=== PATIENT | female | born 1950 | race Caucasian/White ===

== ENCOUNTER 2019-10-23 13:24 | Emergency (ER) | payer MEDICARE, OTHER, SELFPAY ==
[2019-10-23 13:33] VITALS: BP 113/70; PULSE 72; RESP 18; TEMP 36.5; O2SAT 98; BMI 28.5
--- NOTE | 2019-10-23 13:46 | XRR_ITS ---
PROCEDURE INFORMATION: Exam: XR Right Shoulder Exam date and time: 10/23/2019 2:14 PM Age: 68 years old Clinical indication: Pain and injury or trauma; Fall; Initial encounter; Blunt trauma (contusions or hematomas; Shoulder; Right; Injury date: 10/22/19 TECHNIQUE: Imaging protocol: XR Right shoulder. Views: 2 or more views. COMPARISON: No relevant prior studies available. FINDINGS: Bones/joints: Bones appear demineralized. Suspect a mildly displaced humeral head/neck fracture. CT could further evaluate as clinically indicated. Soft tissues: Normal. XR/XR shoulder RT min 2V* [id number] IMPRESSION: Bones appear demineralized. Suspect a mildly displaced humeral head/neck fracture. CT could further evaluate as clinically indicated.
--- NOTE | 2019-10-23 13:46 | XRR_ITS ---
PROCEDURE INFORMATION: Exam: XR Right Humerus Exam date and time: 10/23/2019 2:14 PM Age: 68 years old Clinical indication: Pain and injury or trauma; Fall; Initial encounter; Blunt trauma (contusions or hematomas; Shoulder and arm, upper; Right; Upper arm and shoulder; Injury date: 10/22/19 TECHNIQUE: Imaging protocol: XR Right humerus Views: 2 or more views. COMPARISON: OT Forearm RIGHT [id number] 09/02/2018 7:49 AM FINDINGS: Bones/joints: Bones appear somewhat demineralized. Suspect a mildly displaced humeral neck fracture. Soft tissues: Normal. XR/[place] [id number] IMPRESSION: Bones appear somewhat demineralized. Suspect a mildly displaced humeral neck fracture.
--- NOTE | 2019-10-23 13:46 | CT_ITS ---
WS: [id number] CT HEAD TECHNIQUE: Noncontrast CT of the head obtained from the skullbase to the vertex. CLINICAL INFORMATION: fall w LOC COMPARISON: MRI 6 12,013 DLP: 840.[address] scans at [facility] use at least one of these dose optimization techniques: automat ed exposure control; mA and/or kV adjustment per patient size (includes targeted exams where dose is matched to clinical indication); or iterative reconstruction. FINDINGS: No evidence of intracranial hemorrhage or mass effect. Ventricular system and basal cisterns are kaminski nt. Moderate small vessel changes with moderate parenchymal volume loss. Chronic lacunar infarcts in the left de oliveira radiata and internal capsule. Partially calcified right posterior fossa meningioma me asuring 7 x 11 mm appears stable since the prior MRI in 2012. No underlying edema. No hydrocephalus.. Paranasal sinuses and mastoid air cells are well aerated. .Normal visualized soft tissues. Attempted notification Eliezer Kramer DO at 10/23/2019 3:[address]/CT head wo con* [id number] IMPRESSION: 1. No evidence of intracranial hemorrhage or mass effect. 2. Moderate small vessel changes with moderate parenchymal volume loss. 3. Multiple chronic lacunar infarcts in the left de oliveira radiata and left basal ganglia. 4. Right posterior fossa meningioma measuring 7 x 11 mm appears unchanged sinc e 2012. No edema. No hydrocephalus.
--- NOTE | 2019-10-23 13:47 | W.ED.FALL ---
HPI - Fall General: Chief Complaint: Fall Stated Complaint: fell Time Seen by Provider: 10/23/19 13:34 History of Present Illness: HPI Narrative: 68-year-old female who fell last night. She thought her had fallen she got up out of bed and began walking towards the kitchen living room she got lightheaded and dizzy and passed out she fell and hit her head is able to get herself back up again length of time down is unknown. She is complaining of left shoulder pain and head pain she is not had any nausea vomiting or diarrhea she denies any fever sweats or chills no GI or symptoms no chest pain or abdominal pain her only identifiable pain is at in the left shoulder. MD complaint: fall Onset (ago): hour(s) Fall from: standing Fall witnessed: no Place fall occurred: home Loss of consciousness: Yes Prolonged down time: no Symptoms prior to fall: dizziness Context: history of frequent falls Location of injury: head Location of injury - extremities: Right: shoulder and arm Severity: moderate Associated symptoms-after fall: Denies abdominal pain or chest pain Review of Systems Const: Denies: fever(s), chills, body aches, change in appetite, fatigue or malaise ENMT: Denies: throat pain, ear or mastoid pain, nasal discharge or nasal congestion Card: Denies: chest pain, edema, dyspnea on exertion or orthopnea Resp: Denies: dyspnea, productive cough or non-productive cough GI: Denies: abdominal pain, nausea, vomiting, hematemesis, coffee ground emesis, diarrhea, constipation, bloating, hematochezia or melena : Denies: flank pain, difficulty voiding, dysuria, urinary frequency or urinary urgency Skin/Breast: Denies: rash or pruritus PFSH ED PFSH: Medical History Diabetes mellitus type 2, uncontrolled Essential (primary) hypertension Multiple sclerosis Surgical History History of back surgery History of colonoscopy History of esophagogastroduodenoscopy (EGD) Family History Other Cancer Epilepsy Hypertension Social History Smoking and tobacco status: former smoker Alcohol intake: current Alcohol intake frequency: few times a month History of recent travel: No Physical Exam Const: COMMON NORMALS: no acute distress GENERAL APPEARANCE: cooperative and comfortable HENMT: COMMON NORMALS: normocephalic, atraumatic, hearing grossly normal bilaterally, external ears normal, EAC's normal, TM's normal bilaterally, Normal nasal mucous membranes and turbinates present, moist oral mucous membranes and oropharynx normal HEAD & SCALP: normocephalic and atraumatic NOSE: Normal nasal mucous membranes and turbinates present EXTERNAL EAR: Yes external ears normal EXTERNAL AUDITORY CANAL: EAC's normal TYMPANIC MEMBRANE: TM's normal bilaterally Eye: COMMON NORMALS: Equal, round and reactive pupils present, EOMs intact bilaterally, conjunctivae normal and no scleral icterus CONJUNCTIVA: Yes conjunctivae normal PUPIL: Yes Equal, round and reactive pupils present Neck/C-Spine: COMMON NORMALS: full ROM, no lymphadenopathy, supple and no JVD Lymph: LYMPHATIC: no lymphadenopathy noted and no lymphedema noted Resp: COMMON NORMALS: normal respiratory effort, No retractions, No use of accessory muscles and clear to auscultation bilaterally AUSCULTATION: clear to auscultation bilaterally Cardio: COMMON NORMALS: no JVD, regular rate, regular rhythm and No murmurs present (Cardio) RATE: regular rate RHYTHM: regular rhythm GI: COMMON NORMALS: Soft to palpation and No hepatosplenomegaly present AUSCULTATION: Yes normoactive bowel sounds PALPATION: Yes Soft to palpation, No Tenderness to palpation present (GI), No Guarding due to palpation present (GI) and Yes No hepatosplenomegaly present Extremity: COMMON NORMALS: normal to inspection, capillary refill normal, no clubbing, cyanosis or edema, no calf tenderness and no pedal edema NARRATIVE EXTREMITY EXAM: Pain and swelling of the proximal humerus of the right arm no deformity of the shoulder itself no sulcus sign Skin: COMMON NORMALS: no rashes or lesions noted GENERAL SKIN EXAM: no rashes or lesions noted Course Vital Signs: Vital signs: Vital Signs Temperature 97.7 F 10/23/19 13:33 Pulse Rate 66 10/23/19 16:02 Respiratory Rate 18 10/23/19 16:02 Blood Pressure 147/89 10/23/19 16:02 Pulse Oximetry 98 10/23/19 16:02 MDM - Fall MDM Narrative: Medical decision making narrative: Discussed with orthopedics. Will sling gave pain medications as patient leave sling in place till she sees Ortho. They will provide definitive care Case management to arrange for appointment. Lab Data: Attestation: I reviewed the patient's lab results. Labs: Lab Results 10/23/19 10/23/19 10/23/19 Range/Units 14:00 14:00 14:01 WBC 10.1 H (4.0-10.0) 10^3/ uL RBC 3.53 L (4.1-5.3) 10^6/u L Hgb 10.4 L (11.5-15.3) g/dL Hct 33.7 L (37.0-47.0) % MCV 95.5 (81-99) fL MCH 29.5 (28.0-34.0) pg MCHC 30.9 (30.0-36.0) g/dL RDW 13.1 (12.1-15.1) % Plt Count 275 (130-400) 10^3/c mm MPV 11.0 H (7.4-10.4) fL Neut % (Auto) 60.7 % Lymph % (Auto) 27.7 % [place] % (Auto) 8.6 % Eos % (Auto) 2.1 % Baso % (Auto) 0.7 % Neut # (Auto) 6.12 (1.8-7.7) 10^3/u L Lymph # (Auto) 2.8 (0.8-4.8) 10^3/u L [place] # (Auto) 0.9 (0.2-0.9) 10^3/u L Eos # (Auto) 0.2 (0.0-0.8) 10^3/u L Baso # (Auto) 0.1 (0.0-0.1) 10^3/u L Nucleated RBC % (a uto) 0 % Nucleated RBCs # 0.0 /100WBC Sodium 136 (136-145) mmol/L Potassium 4.5 (3.5-5.1) mmol/L Chloride 103 (98-107) mmol/L Carbon Dioxide 24 (22-29) mmol/L Anion Gap 13.5 (5-19) BUN 25 H (8-23) mg/dL Creatinine 2.5 H (0.5-0.9) mg/dL GFR Calculation 19.0 L (90-130) mL/min Glucose 116 H (65-115) mg/dL POC Glucose 106 (70-110) mg/dL Calculated Osmolal ity 280 L (285-295) mOsm/k g Calcium 8.7 (8.5-10.5) mg/dL Total Bilirubin 0.2 (0.15-1.2) mg/dL AST 13 (0-32) U/L ALT 9 (0-33) U/L Alkaline Phosphata se 74 (35-105) IU/L Total Protein 7.0 (6.6-8.7) g/dL Albumin 3.7 (3.5-5.2) g/dL Globulin 3.3 (1.3-4.6) g/dL Discharge Plan Discharge Patient Disposition: Home Clinical Impression: Fracture of proximal end of humerus Condition: Stable Prescriptions: New hydrocodone-acetaminophen 5-325 mg tablet 1 tab PO Q6H PRN (Reason: pain) Qty: 20 RF: 0 No Action celecoxib [Celebrex] 200 mg capsule 200 mg PO BID RF: 0 atenolol 50 mg tablet 50 mg PO DAILY RF: 0 glimepiride 2 mg tablet 4 mg PO DAILY RF: 0 metformin 500 mg tablet 500 mg PO DAILY RF: 0 tizanidine 4 mg tablet 4 mg PO Q6H PRN (Reason: muscle spasms) RF: 0 amlodipine 5 mg tablet 5 mg PO DAILY Qty: 90 RF: 3 aripiprazole 5 mg tablet 5 mg PO DAILY Qty: 90 RF: 3 venlafaxine [Effexor XR] 150 mg capsule,extended release 24hr 150 mg PO DAILY Qty: 90 RF: 3 Lantus Solostar U-100 Insulin 100 unit/mL (3 mL) insulin pen 25 unit SUBCUT .at bedtime Qty: 15 RF: 3 losartan-hydrochlorothiazide 100-25 mg tablet 1 tab PO DAILY 90 Days Qty: 90 RF: 0 levothyroxine 75 mcg tablet 75 mcg PO DAILY Qty: 90 RF: 3 Aspirin Low Dose 81 mg Tablet,Delayed Release (Dr/Ec) 81 mg PO DAILY RF: 0 gabapentin 300 mg capsule 300 mg PO DAILY RF: 0 Vitamin B-12 2,000 mcg Tablet Extended Release 2,000 mcg PO DAILY RF: 0 Vitamin D3 25 mcg (1,000 unit) Tablet 25 mcg PO DAILY RF: 0 potassium chloride 20 mEq Tablet Extended Release 20 meq PO DAILY RF: 0 Discharge Orders: Discharge Order (Routine); Ordered 10/23/19 Ordered By: Eliezer Kramer Referrals: Malik Nicolas MD [Primary Care Provider] - Discharge Diet: Usual diet Discharge Activity: Increase activity as tolerated Activity Restrictions/Additional Instructions: Case management will call with referral to orthopedics for the humerus fracture Discharge Date/Time: 10/23/19 16:02 Coding Level of Care Code ED Commercial Energy Auditor for Chg Fwd Exam Comprehensive
[2019-10-23 14:02] VITALS: BP 121/73; PULSE 65; RESP 14; O2SAT 97
[2019-10-23 14:06] LABS: Basophils # 0.1 10^3/uL (0.0-0.1); Basophils % 0.7 %; Eosinophils # 0.2 10^3/uL (0.0-0.8); Eosinophils % 2.1 %; Hematocrit 33.7 % (37.0-47.0); Hemoglobin 10.4 g/dL (11.5-15.3); Lymphocytes # 2.8 10^3/uL (0.8-4.8); Lymphocytes % 27.7 %; Mean Corpuscular HGB Conc 30.9 g/dL (30.0-36.0); Mean Corpuscular Hemoglobin 29.5 pg (28.0-34.0); Mean Corpuscular Volume 95.5 fL (81-99); Monocytes # 0.9 10^3/uL (0.2-0.9); Monocytes % 8.6 %; Neutrophils # 6.12 10^3/uL (1.8-7.7); Neutrophils % 60.7 %; Nucleated Red Blood Cells % 0 %; Platelet Count 275 10^3/cmm (130-400); Red Blood Count 3.53 10^6/uL (4.1-5.3); Red Cell Distribution Width 13.1 % (12.1-15.1); White Blood Count 10.1 10^3/uL (4.0-10.0)
[2019-10-23 14:07] LABS: Glucose Point of Care 106 mg/dL (70-110)
[2019-10-23 14:31] LABS: Alanine Aminotransferase 9 U/L (0-33); Albumin Level 3.7 g/dL (3.5-5.2); Alkaline Phosphatase 74 IU/L (35-105); Anion Gap 13.5 (5-19); Aspartate Amino Transferase 13 U/L (0-32); Blood Urea Nitrogen 25 mg/dL (8-23); Calcium 8.7 mg/dL (8.5-10.5); Carbon Dioxide 24 mmol/L (22-29); Chloride 103 mmol/L (98-107); Globulin 3.3 g/dL (1.3-4.6); Glucose 116 mg/dL (65-115); Osmolality Calculated 280 mOsm/kg (285-295); Potassium 4.5 mmol/L (3.5-5.1); Sodium 136 mmol/L (136-145); Total Bilirubin 0.2 mg/dL (0.15-1.2)
--- NOTE | 2019-10-23 15:22 | DCPLANNER ---
Tate blackmon was asked to schedule a follow up appointment for patient with ortho. manager business banking called the ortho clinic, spoke with Sarah, gave clinic patients information. manager business banking was told that patients information would be printed and reviewed. Clinic will call patient with appointment information.
[2019-10-23 15:29] VITALS: BP 147/89; PULSE 76; RESP 14; O2SAT 94
[2019-10-23 16:02] VITALS: BP 147/89; PULSE 66; RESP 18; O2SAT 98
--- NOTE | 2019-10-25 11:29 | DCPLANNER ---
Patient has a follow up appointment scheduled for Wednesday, October 30, 2019 at 2:[address] Green. Clinic will call patient with appointment information.
--- NOTE | 2019-11-28 13:11 | DCPLANNER ---
Patient had a follow up appointment scheduled for 10.30.[address] Green at [facility] - patient did attend the appointment.
== END 2019-10-23 16:02 | disposition home or self-care (01) ==
PROVIDERS: Emergency Provider Family Medicine; PCP Internal Medicine
DX: S42.202A Unspecified fracture of upper end of left humerus, initial encounter for closed fracture (principal); Z79.82 Long term (current) use of aspirin; Z79.4 Long term (current) use of insulin; W18.39XA Other fall on same level, initial encounter; E11.9 Type 2 diabetes mellitus without complications; I10 Essential (primary) hypertension; G35 Multiple sclerosis; Z87.891 Personal history of nicotine dependence
CPT/HCPCS: 12345; 29240; 36415; 36416; 70450; 73030; 73060; 80053; 82962; 85025; 99282; 99283

== ENCOUNTER 2019-10-30 06:00 | Outpatient (CLI) | payer MEDICARE, OTHER, SELFPAY | END 2019-10-30 23:59 | disposition home or self-care (01) | LOC: SPT 01-19 10:56 | PROVIDERS: PCP Internal Medicine; Referring Provider Specialist; Visit Provider Specialist | DX: S42.201D Unspecified fracture of upper end of right humerus, subsequent encounter for fracture with routine healing (principal); X58.XXXD Exposure to other specified factors, subsequent encounter | CPT/HCPCS: L3670 ==

== ENCOUNTER → 2019-10-30 15:24 | Outpatient (BNVA) | payer MEDICARE, OTHER, SELFPAY | PROVIDERS: PCP Internal Medicine; Referring Provider Family Medicine; Visit Provider Specialist | DX: S42.209A Unspecified fracture of upper end of unspecified humerus, initial encounter for closed fracture (principal); X58.XXXA Exposure to other specified factors, initial encounter | CPT/HCPCS: 73030 ==

== ENCOUNTER → 2019-11-08 12:00 | Outpatient (BNVA) | payer MEDICARE, OTHER, SELFPAY | PROVIDERS: PCP Internal Medicine; Visit Provider Specialist | DX: S42.291A Other displaced fracture of upper end of right humerus, initial encounter for closed fracture (principal); X58.XXXA Exposure to other specified factors, initial encounter | CPT/HCPCS: 73030 ==

== ENCOUNTER → 2019-12-04 10:27 | Outpatient (BNVA) | payer MEDICARE, OTHER, SELFPAY | PROVIDERS: PCP Internal Medicine; Visit Provider Specialist | DX: S42.291A Other displaced fracture of upper end of right humerus, initial encounter for closed fracture (principal); X58.XXXA Exposure to other specified factors, initial encounter | CPT/HCPCS: 73030 ==

== ENCOUNTER → 2019-12-25 13:23 | Outpatient (BNVA) | payer MEDICARE, OTHER, SELFPAY | PROVIDERS: Family Provider Internal Medicine; PCP Internal Medicine; Visit Provider Specialist | DX: S42.291A Other displaced fracture of upper end of right humerus, initial encounter for closed fracture (principal); X58.XXXA Exposure to other specified factors, initial encounter | CPT/HCPCS: 73030 ==

== ENCOUNTER 2019-12-28 12:23 | Outpatient (RCR) | payer MEDICARE, OTHER, SELFPAY | END 2020-01-13 23:59 | disposition home or self-care (01) | LOC: SPT 12:23 | PROVIDERS: PCP Internal Medicine; Referring Provider Internal Medicine; Visit Provider Specialist | DX: S42.209D Unspecified fracture of upper end of unspecified humerus, subsequent encounter for fracture with routine healing (principal); X58.XXXD Exposure to other specified factors, subsequent encounter | CPT/HCPCS: 97161 ==

== ENCOUNTER 2020-01-09 07:50 | Outpatient (CLI) | payer MEDICARE, OTHER, SELFPAY | END 2020-01-09 07:51 | disposition home or self-care (01) | LOC: WOUND 07:51 | PROVIDERS: PCP Internal Medicine; Visit Provider Thoracic Surgery (Cardiothoracic Vascular Surgery) | DX: E11.621 Type 2 diabetes mellitus with foot ulcer (principal); L97.412 Non-pressure chronic ulcer of right heel and midfoot with fat layer exposed | CPT/HCPCS: 11042; G0463; L4387 ==

== ENCOUNTER 2020-01-11 12:54 | Outpatient (CLI) | payer MEDICARE, OTHER, SELFPAY ==
--- NOTE | 2020-01-11 13:07 | XRR_ITS ---
PROCEDURE INFORMATION: Exam: XR Right Foot Complete Exam date and time: 01/11/2020 1:32 PM Age: 69 years old Clinical indication: Condition or disease; Other: Pain, redness nonhealing ulcer TECHNIQUE: Imaging protocol: XR Right foot. Views: 3 or more views. COMPARISON: No relevant prior studies available. FINDINGS: Bones/joints: Negative for acute bony abnormality. There is osteoarthritis with narrowing of the interphalangeal articulation of multiple digits. A bone spur is present on the inferior calcaneus. Soft tissues: Normal. XR/XR foot RT min 3V* [id number] IMPRESSION: 1. No acute bone abnormality. 2. Moderate osteoarthritis 3. Otherwise negative examination
== END 2020-01-11 12:55 | disposition home or self-care (01) ==
LOC: RAD 13:03
PROVIDERS: PCP Internal Medicine; Visit Provider Thoracic Surgery (Cardiothoracic Vascular Surgery)
DX: M79.671 Pain in right foot (principal); L53.9 Erythematous condition, unspecified; L97.519 Non-pressure chronic ulcer of other part of right foot with unspecified severity; M19.071 Primary osteoarthritis, right ankle and foot
CPT/HCPCS: 73630

== ENCOUNTER 2020-01-16 09:05 | Outpatient (CLI) | payer MEDICARE, OTHER, SELFPAY | END 2020-01-16 09:06 | disposition home or self-care (01) | LOC: WOUND 09:05 | PROVIDERS: PCP Internal Medicine; Visit Provider Thoracic Surgery (Cardiothoracic Vascular Surgery) | DX: E11.621 Type 2 diabetes mellitus with foot ulcer (principal); L97.412 Non-pressure chronic ulcer of right heel and midfoot with fat layer exposed | CPT/HCPCS: 11042 ==

== ENCOUNTER 2020-01-23 09:06 | Outpatient (CLI) | payer MEDICARE, OTHER, SELFPAY | END 2020-01-23 09:07 | disposition home or self-care (01) | LOC: WOUND 09:07 | PROVIDERS: PCP Internal Medicine; Visit Provider Thoracic Surgery (Cardiothoracic Vascular Surgery) | DX: E11.621 Type 2 diabetes mellitus with foot ulcer (principal); L97.412 Non-pressure chronic ulcer of right heel and midfoot with fat layer exposed | CPT/HCPCS: 11042 ==

== ENCOUNTER → 2020-01-31 11:37 | Outpatient (BNVA) | payer MEDICARE, OTHER, SELFPAY | PROVIDERS: PCP Internal Medicine; Visit Provider Specialist | DX: S42.291A Other displaced fracture of upper end of right humerus, initial encounter for closed fracture (principal) | CPT/HCPCS: 73030 ==

== ENCOUNTER 2020-02-06 08:45 | Outpatient (CLI) | payer MEDICARE, OTHER, SELFPAY | END 2020-02-06 08:46 | disposition home or self-care (01) | LOC: WOUND 08:46 | PROVIDERS: PCP Internal Medicine; Visit Provider Nurse Practitioner Family | DX: E11.621 Type 2 diabetes mellitus with foot ulcer (principal); L97.412 Non-pressure chronic ulcer of right heel and midfoot with fat layer exposed | CPT/HCPCS: 11042 ==

== ENCOUNTER 2020-02-12 13:05 | Outpatient (CLI) | payer MEDICARE, OTHER, SELFPAY ==
--- NOTE | 2020-02-12 13:45 | MR_ITS ---
WS: [id number] MRI RIGHT SHOULDER NONCONTRAST TECHNIQUE: Sagittal T2, coronal T1, T2 and proton density imaging. Axial gradient PDE imaging. CLINICAL INFORMATION: S42.291A - Other displaced fracture of upper end of right humerus, initial enco unter for closed fracture COMPARISON: Radiograph January 31, 2020 FINDINGS: Moderate degenerative arthritis AC joint with synovial thickening. Small amount of subacromial/subdel toid fluid. Small amount of edema at the AC joint. Mild downsloping of the acromion. Impacted healing fracture of the right humeral head and neck. Mild edema involving the residual fracture lines. Chron ic thinning of the rotator cuff. Tendinopathy and partial tear involving the distal supraspinatus wit h calcific tendinitis. Infraspinatus appears intact. Teres minor appears intact. Chronic atrophy of t he rotator cuff. Subscapularis tendon appears intact. Tiny biceps tendon in the bicipital groove with medial subluxation. Partial avulsion the posterior la haseeb. This is age indeterminate. Degenerative fraying of the glenoid labrum. MR/MR shoulder RT wo con* [id number] IMPRESSION: 1. Healing comminuted fracture involving the right humerus surgical neck with impaction. Mild residual edema at the fracture sites. Alignment is unchanged. 2. Chronic atrophy of the rotator cuff worse involving the distal supraspinatu s. Tendinopathy with partial intrasubstance tear and insertional tear involving the distal supraspinatus. 3. Avulsion of the posterior glenoid labrum age-indeterminate. 4. Atrophic biceps tendon in the bicipital groove with medial subluxation. 5. Moderate degenerative arthritis at the AC joint with mild downsloping of th e acromion.
== END 2020-02-12 13:06 | disposition home or self-care (01) ==
LOC: RADSHAW 13:09
PROVIDERS: PCP Internal Medicine; Visit Provider Specialist
DX: S42.291A Other displaced fracture of upper end of right humerus, initial encounter for closed fracture (principal); X58.XXXA Exposure to other specified factors, initial encounter; M19.011 Primary osteoarthritis, right shoulder
CPT/HCPCS: 73221

== ENCOUNTER 2020-02-13 09:10 | Outpatient (CLI) | payer MEDICARE, OTHER, SELFPAY | END 2020-02-13 09:11 | disposition home or self-care (01) | LOC: WOUND 09:11 | PROVIDERS: PCP Internal Medicine; Visit Provider Thoracic Surgery (Cardiothoracic Vascular Surgery) | DX: E11.621 Type 2 diabetes mellitus with foot ulcer (principal); L97.412 Non-pressure chronic ulcer of right heel and midfoot with fat layer exposed | CPT/HCPCS: 11042 ==

== ENCOUNTER 2020-02-20 10:49 | Inpatient (IN) | payer MEDICARE, OTHER, SELFPAY ==
[2020-02-20] VITALS (8 sets, daily range): BP systolic 94–129; BP diastolic 56–81; PULSE 69–89; RESP 15–18; TEMP 36.4–36.8; O2SAT 93–98; BMI 26.1
--- NOTE | 2020-02-20 10:57 | XR_ITS ---
WS: [id number] XR hip LT 2-3V wo/w pel* [id number] REASON FOR EXAM: fall FINDINGS: There is a three-part intertrochanteric fracture with vertical fracture through the lesser with media l displacement. Acetabulum and superior and inferior pubic rami appear intact. XR/XR hip LT 2-3V wo/w pel* [id number] IMPRESSION: Type 4 intertrochanteric fracture as above.
--- NOTE | 2020-02-20 10:58 | ED_ITS ---
HPI - Fall General: Chief Complaint: Extremity Injury, Lower Stated Complaint: L HIP PAIN, FALL Time Seen by Provider: 02/20/20 10:50 Source: patient and EMS Mode of arrival: EMS Limitations: no limitations History of Present Illness: HPI Narrative: 69-year-old female who is here by EMS after a fall. Patient states she is standing sink and tripped over her boot. She landed on her left hip and states she has left hip pain is unable to bear weight. She denies any other injuries from her fall. She rates her pain a 7 out of 10 and is sharp in nature. complaint: fall Associated symptoms-after fall: Denies abdominal pain, chest pain or headache(s) Review of Systems Const: Denies: fever(s), chills, body aches or change in appetite Eyes: Denies: blurry vision or eye discomfort ENMT: Denies: throat pain or dental pain Card: Denies: chest pain Resp: Denies: dyspnea GI: Denies: abdominal pain, nausea, vomiting or diarrhea : Denies: dysuria Musc: Reports: joint pain Skin/Breast: Denies: rash Neuro: Denies: headache(s) Psych: Denies: depression Qamar/Lymph: Denies: easy bruising All/Imm: Denies: urticaria PFSH ED PFSH: Medical History (Updated 02/20/20 @ 12:15 by Valentin Johnson MD) CVA (cerebral vascular accident) Reports this affected her right side, and occurred January 2019. No significant residual. Depression Diabetes mellitus type 2, uncontrolled Dysphagia Essential (primary) hypertension Hypertension Hypothyroidism Multiple sclerosis Neuropathy of both feet RLS (restless legs syndrome) Surgical History (Updated 02/20/20 @ 12:15 by Valentin Johnson MD) History of back surgery History of colonoscopy History of esophagogastroduodenoscopy (EGD) History of surgery on left wrist History of surgery on right wrist Family History Other Cancer Epilepsy Hypertension Social History Smoking and tobacco status: former smoker Alcohol intake: current Alcohol intake frequency: few times a month History of recent travel: No Physical Exam Const: COMMON NORMALS: no acute distress, patient oriented x3 and healthy appearing HENMT: COMMON NORMALS: normocephalic and atraumatic HEAD & SCALP: normocephalic and atraumatic Eye: COMMON NORMALS: Equal, round and reactive pupils present and EOMs intact bilaterally PUPIL: Yes Equal, round and reactive pupils present Neck/C-Spine: COMMON NORMALS: full ROM and supple Chest: COMMONS NORMALS: normal inspection of the chest and normal palpation of entire chest wall Resp: COMMON NORMALS: normal respiratory effort, No retractions, No use of accessory muscles and clear to auscultation bilaterally AUSCULTATION: clear to auscultation bilaterally Cardio: COMMON NORMALS: regular rate, regular rhythm and No murmurs present (Cardio) RATE: regular rate RHYTHM: regular rhythm GI: COMMON NORMALS: Normal to inspection, nondistended, normoactive bowel sounds present, Soft to palpation, non-tender and no masses PALPATION: Yes Soft to palpation Extremity: NARRATIVE EXTREMITY EXAM: Neuro: COMMON NORMALS: patient oriented x3, moves all extremities and no focal motor deficits Psych: COMMON NORMALS: mental status grossly normal, Normal thought process present and cooperative THOUGHT PROCESS: Normal thought process present Skin: COMMON NORMALS: no rashes or lesions noted and no wounds GENERAL SKIN EXAM: no rashes or lesions noted Course Vital Signs: Vital signs: Vital Signs Temperature 97.6 F 02/20/20 10:50 Pulse Rate 69 02/20/20 10:50 Respiratory Rate 16 02/20/20 11:11 Blood Pressure 109/76 02/20/20 10:50 Pulse Oximetry 98 02/20/20 10:50 MDM - Fall MDM Narrative: Medical decision making narrative: Gia presents here with a fall and does have a left hip fracture. Patient has no other signs of injuries. I spoke to hospitalist orthopedist and will admit. Lab Data: Labs: Lab Results 02/20/20 02/20/20 Range/Units 11:07 11:07 WBC 10.8 H (4.0-10.0) 10^3/ uL RBC 3.52 L (4.1-5.3) 10^6/u L Hgb 10.2 L (11.5-15.3) g/dL Hct 32.5 L (37.0-47.0) % MCV 92.3 (81-99) fL MCH 29.0 (28.0-34.0) pg MCHC 31.4 (30.0-36.0) g/dL RDW 13.6 (12.1-15.1) % Plt Count 314 (130-400) 10^3/c mm MPV 11.2 H (7.4-10.4) fL Neut % (Auto) 75.3 % Lymph % (Auto) 17.1 % [place] % (Auto) 5.1 % Eos % (Auto) 1.4 % Baso % (Auto) 0.8 % Neut # (Auto) 8.14 H (1.8-7.7) 10^3/u L Lymph # (Auto) 1.9 (0.8-4.8) 10^3/u L [place] # (Auto) 0.6 (0.2-0.9) 10^3/u L Eos # (Auto) 0.2 (0.0-0.8) 10^3/u L Baso # (Auto) 0.1 (0.0-0.1) 10^3/u L Nucleated RBC % (a uto) 0 % Nucleated RBCs # 0.0 /100WBC Sodium 135 L (136-145) mmol/L Potassium 4.2 (3.5-5.1) mmol/L Chloride 102 (98-107) mmol/L Carbon Dioxide 19 L (22-29) mmol/L Anion Gap 18.2 (5-19) BUN 29 H (8-23) mg/dL Creatinine 3.2 H (0.5-0.9) mg/dL GFR Calculation Not Reportable Glucose 81 (65-115) mg/dL Calculated Osmolal ity 285 (285-295) mOsm/k g Calcium 8.9 (8.5-10.5) mg/dL Total Bilirubin 0.2 (0.15-1.2) mg/dL AST 16 (0-32) U/L ALT 12 (0-33) U/L Alkaline Phosphata se 71 (35-105) IU/L Total Protein 6.8 (6.6-8.7) g/dL Albumin 3.9 (3.5-5.2) g/dL Globulin 2.9 (1.3-4.6) g/dL Imaging Data^: xr L hip: Radiologist's impression: [address] [address] XRay Report Signed Patient: Gia Clement I Unit #: [id number] : 1950 Age/Sex: 69 / F ADM Date: 02/20/20 Loc: ER Room/Bed: Attending Dr: Ordering Provider/Ordering MD: Crescencio Jacob MD Date of Service: 02/20/20 Procedure(s): XR hip LT 2-3V wo/w pel* [id number] Accession Number(s): [id number] Report Number: [id number] WS: [id number] XR hip LT 2-3V wo/w pel* [id number] REASON FOR EXAM: fall FINDINGS: There is a three-part intertrochanteric fracture with vertical fracture through the lesser with medial displacement. Acetabulum and superior and inferior pubic rami appear intact. XR/XR hip LT 2-3V wo/w pel* [id number] IMPRESSION: Type 4 intertrochanteric fracture as above. CXR: Radiologist's impression: [address] [address] XRay Report Signed Patient: Gia Clement I Unit #: [id number] : 1950 Age/Sex: 69 / F ADM Date: 02/20/20 Loc: ER Room/Bed: Attending Dr: Ordering Provider/Ordering MD: Crescencio Jacob MD Date of Service: 02/20/20 Procedure(s): XR chest 1V portable [id number] Accession Number(s): [id number] Report Number: [id number] WS: [id number] XR chest 1V portable [id number] REASON FOR EXAM: htn FINDINGS: Moderate tortuosity of the thoracic aorta. Normal heart size. There is elevation of the right hemidiaphragm. Calcified granulomatous disease is seen in both hemithoraces. No active pulmonary parenchymal or pleural disease is noted. Old healed rib fractures bilaterally. Advanced degenerative arthropathy in the right shoulder. XR/XR chest 1V portable [id number] IMPRESSION: No acute chest abnormality. EKG Data^: EKG 1: Attestation: I personally reviewed and interpreted this EKG as follows: EKG interpretation date: 02/20/20 EKG interpretation time: 11:36 Discharge Plan Discharge Patient Disposition: Admitted As Inpatient Clinical Impression: Closed fracture of left hip Qualifiers: Encounter type: initial encounter Qualified Code(s): S72.002A - Fracture of unspecified part of neck of left femur, initial encounter for closed fracture Condition: Stable Coding Level of Care Code ED Clinical Laboratory Science Professor for Kelly Fwd Exam Comprehensive
[2020-02-20] MEDS: morphine 4 mg/mL SDV 1 mL IVP (11:11)
[2020-02-20] MEDS: ondansetron 2 mg/ML SDV 2 mL 4 MG IVP (11:12)
--- NOTE | 2020-02-20 11:17 | ECG_ITS ---
[facility] Test Date: 2020-02-20 Pat Name: Gia Clement Department: Room: Gender: Female Smasher Hand: : 1950 Requested By: Crescencio Jacob Order Number: [id number] Simon MD: Rajani Wright M.D. Measurements Intervals [place] Rate: 70 P: 78 LA: 201 QRS: -10 QRSD: 78 T: 50 QT: 388 QTc: 420 Interpretive Statements SINUS RHYTHM LOW QRS VOLTAGE IN PRECORDIAL LEADS [QRS DEFLECTION < 1.0 mV IN CHEST LEADS] MINIMAL ST DEPRESSION [0.025+ mV ST DEPRESSION] No previous ECG available for comparison Electronically Signed On 02-20-2020 15:17:02 FREIGHT MANAGER by Rajani Wright M.D. [id number] f
--- NOTE | 2020-02-20 11:17 | XR_ITS ---
WS: [id number] XR chest 1V portable [id number] REASON FOR EXAM: htn FINDINGS: Moderate tortuosity of the thoracic aorta. Normal heart size. There is elevation of the right hemidiaphragm. Calcified granulomatous disease is seen in both hemith oraces. No active pulmonary parenchymal or pleural disease is noted. Old healed rib fractures bilaterally. Advanced degenerative arthropathy in the right shoulder. XR/XR chest 1V portable [id number] IMPRESSION: No acute chest abnormality.
[2020-02-20 11:31] LABS: Basophils # 0.1 10^3/uL (0.0-0.1); Basophils % 0.8 %; Eosinophils # 0.2 10^3/uL (0.0-0.8); Eosinophils % 1.4 %; Hematocrit 32.5 % (37.0-47.0); Hemoglobin 10.2 g/dL (11.5-15.3); Lymphocytes # 1.9 10^3/uL (0.8-4.8); Lymphocytes % 17.1 %; Mean Corpuscular HGB Conc 31.4 g/dL (30.0-36.0); Mean Corpuscular Volume 92.3 fL (81-99); Mean Platelet Volume 11.2 fL (7.4-10.4); Monocytes # 0.6 10^3/uL (0.2-0.9); Monocytes % 5.1 %; Neutrophils # 8.14 10^3/uL (1.8-7.7); Neutrophils % 75.3 %; Nucleated Red Blood Cells % 0 %; Platelet Count 314 10^3/cmm (130-400); Red Blood Count 3.52 10^6/uL (4.1-5.3); Red Cell Distribution Width 13.6 % (12.1-15.1); White Blood Count 10.8 10^3/uL (4.0-10.0)
[2020-02-20] MEDS: sodium chloride 0.9% 1,000 ML 999 ML IV (11:37)
[2020-02-20 11:42] LABS: Alanine Aminotransferase 12 U/L (0-33); Albumin Level 3.9 g/dL (3.5-5.2); Alkaline Phosphatase 71 IU/L (35-105); Anion Gap 18.2 (5-19); Aspartate Amino Transferase 16 U/L (0-32); Blood Urea Nitrogen 29 mg/dL (8-23); Calcium 8.9 mg/dL (8.5-10.5); Carbon Dioxide 19 mmol/L (22-29); Chloride 102 mmol/L (98-107); Globulin 2.9 g/dL (1.3-4.6); Glucose 81 mg/dL (65-115); Osmolality Calculated 285 mOsm/kg (285-295); Potassium 4.2 mmol/L (3.5-5.1); Sodium 135 mmol/L (136-145); Total Bilirubin 0.2 mg/dL (0.15-1.2); Total Protein 6.8 g/dL (6.6-8.7)
--- NOTE | 2020-02-20 12:11 | P.HP_ITS ---
Providers/Chief Complaint Primary Care Provider: Malik Nicolas MD Chief Complaint: L HIP PAIN, FALL History of Present Illness Gia Clement is a 69 year old female that presented to the emergency department with history of a fall. She reports she was at her sink when the fall occurred, and she fell on her left side and had immediate pain in her left hip. She denies any other injuries in the fall and has had no head or neck pain . She reports she thinks she fell as her balance is poor and she tripped. She had no loss of consciousness, dizziness or other symptoms prior to the fall. She reports she is very prone to falling secondary to MS and poor balance. She has sustained multiple fractures in the past secondary to this. She has a walker and cane but does not always use them. She denies any history of complications with anesthesia, nor bleeding disorder. She is on no anticoagulants. No personal history of Covid or exposure. Review of Systems General: Reports: 10 or more systems reviewed and unremarkable except in HPI and below Const: Denies: fever(s) Eyes: Denies: change in vision ENMT: Denies: throat pain Card: Denies: chest pain Resp: Denies: dyspnea GI: Denies: abdominal pain : Denies: flank pain Musc: Reports: extremity pain; Denies: neck pain Skin/Breast: Denies: rash Neuro: Denies: headache(s) Psych: Denies: anxiety Endo: Denies: polyuria Qamar/Lymph: Denies: easy bruising All/Imm: Denies: urticaria Medications/Allergies Home Medications Medication Instructions Recorded Confirmed Last Taken Type atenolol 50 mg tablet 50 mg PO DAILY 04/19/19 01/31/20 10/23/19 History celecoxib 200 mg capsule 200 mg PO BID 04/19/19 01/31/20 10/23/19 History aspirin [Aspirin Low Dose] 81 mg PO DAILY 10/23/19 01/31/20 10/23/19 History gabapentin 300 mg PO DAILY 10/23/19 01/31/20 10/23/19 History tizanidine 4 mg tablet 4 mg PO Q6H PRN #180 tab 02/01/20 Unknown Rx amlodipine 5 mg PO DAILY@02/20/20 02/20/20 02/20/20 08:00 History aripiprazole 5 mg PO DAILY@08 02/20/20 02/20/20 02/20/20 08:00 History cholecalciferol (vitamin D3) 10 mcg PO DAILY@02/20/20 02/20/20 02/20/20 08:00 History [Vitamin D3] cyanocobalamin (vitamin B-12) 50 mcg PO DAILY@02/20/20 02/20/20 02/20/20 08:00 History [Vitamin B-12] glimepiride 4 mg PO BID@02/20/20 02/20/20 02/20/20 08:00 History insulin glargine [Lantus Solostar 25 unit SUBCUT DAILY@02/20/20 02/20/20 02/19/20 History U-100 Insulin] levothyroxine 75 mcg PO DAILY@02/20/20 02/20/20 02/20/20 08:00 History losartan-hydrochlorothiazide 1 tab PO DAILY@02/20/20 02/20/20 02/20/20 History metformin 500 mg PO DAILY@02/20/20 02/20/20 02/19/20 History sulfamethoxazole-trimethoprim 1 tab PO BID 02/20/20 02/20/20 02/19/20 History finished 02/19/2020 venlafaxine [Effexor XR] 150 mg PO DAILY@02/20/20 02/20/20 02/20/20 History Allergies Allergy/AdvReac Type Severity Reaction Status Date / Time No Known Allergies Allergy Verified 02/20/20 12:22 PFSH Acute PFSH: Medical History (Updated 02/20/20 @ 12:19 by Valentin Johnson MD) Chronic kidney disease CVA (cerebral vascular accident) Reports this affected her right side, and occurred January 2019. No significant residual. Depression Diabetes mellitus type 2, uncontrolled Dysphagia Essential (primary) hypertension Hypertension Hypothyroidism Multiple sclerosis Neuropathy of both feet RLS (restless legs syndrome) Surgical History (Updated 02/20/20 @ 12:15 by Valentin Johnson MD) History of back surgery History of colonoscopy History of esophagogastroduodenoscopy (EGD) History of surgery on left wrist History of surgery on right wrist Family History Other Cancer Epilepsy Hypertension Social History Smoking and tobacco status: former smoker Alcohol intake: current Alcohol intake frequency: few times a month History of recent travel: No Vitals/I&O/Wt Last Vital Signs Temp 97.6 F 02/20/20 10:50 Pulse 69 02/20/20 10:50 Resp 16 02/20/20 11:11 BP 109/76 02/20/20 10:50 Pulse Ox 98 02/20/20 10:50 Weight last 48 hrs Weight 80.286 kg Physical Exam Narrative: EXAM NARRATIVE: General exam is a white female, reporting her pain is under fair control currently. HEENT: Pupils equally round. Oropharynx clear. Adentulous. Neck is supple no lymphadenopathy or thyromegaly Cardiovascular regular rate and rhythm without murmur. No S3 or S4 Lungs clear no wheezing or crackles Abdomen is soft with positive bowel sounds. No obvious organomegaly was deferred Extremities no cyanosis clubbing or edema. Left lower extremity is rotated externally and shortened. Pulses are intact. Right lower extremity with small diabetic foot ulcer near the base of the right fifth toe. No obvious active infection. Skin see findings above Neuro no obvious focal deficits. Data : 02/20/20 11:07 02/20/20 11:07 Other data: LFTs are within normal limits Chest x-ray by my read no infiltrate. Hip x-ray demonstrates intertrochanteric fracture on the left EKG is ordered and pending A&P Assessment and plan (1) Closed fracture of left hip: Left intertrochanteric hip fracture. Pain control with morphine SCDs for DVT prophylaxis until surgery, then pharmacologic Orthopedic consultation Will likely need placement. Recent right proximal humerus fracture for which she is still being followed by orthopedic clinic Status: Acute Qualifiers: Encounter type: initial encounter Qualified Code(s): S72.002A - Fracture of unspecified part of neck of left femur, initial encounter for closed fracture (2) Acute kidney injury: Hydration Powell placement to monitor urine output Repeat in the morning Avoid renal toxic medication. Hold all anti-inflammatories including Celebrex Status: Acute (3) Multiple sclerosis: Status: Acute (4) Diabetes mellitus type 2, uncontrolled: Sliding scale insulin. As p.o. intake will be variable hold long-acting insulin and glimepiride Status: Acute Qualifiers: Coma presence: without coma (5) Essential (primary) hypertension: Continue a atenolol. Hold losartan, diuretic secondary to renal function and hold Norvasc as blood pressure is somewhat low currently. Status: Acute Additional A&P Information History of restless leg syndrome History of diabetic neuropathy History of recent right humerus fracture Hypothyroidism, continue home medications Depression, continue home medications Full code SCDs for DVT prophylaxis. Pharmacological treatment held pending timing of surgery Keep n.p.o. until determination of when surgery will occur. After that if no surgery today n.p.o. after midnight, consistent carb diet No direct contraindications for surgery found, although EKG still needs reviewed. 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
[2020-02-20] MEDS: HYDROmorphone 1 mg/mL INJ 1 mL IVP (12:29)
[2020-02-20 17:15] LABS: Glucose Point of Care 91 mg/dL (70-110)
[2020-02-20] MEDS: sodium chloride 0.9% 1,000 ML 75 ML IV (17:22)
--- NOTE | 2020-02-20 17:35 | P.CONIM_ITS ---
Providers/Reason For Consult Consulting Physican/Specialty*: Solis Corcoran MD; orthopedic surgery Reason for Consult*: Left intratrochanteric hip fracture Attending Physician: Valentin Johnson MD Primary Care Provider: Malik Nicolas MD History of Present Illness History of Present Illness Gia Clement is a 69 year old female who fell in her bathroom this afternoon with resulting pain in her left hip and inability to bear weight. She was transferred to the emergency room by EMS where radiographs revealed a comminuted left intertrochanteric hip fracture. The patient denies any head or neck injury with the fall. He denies any loss of consciousness. He denies any shortness of breath, palpitations or syncopal episodes. She previously was nursing a ulcer on her right lateral foot and was wearing a cam boot. She has a history of a right- sided stroke where she states she lost approximately 20% of her strength on that side Meds/Allergies Home Medications and Allergies Home Medications Medication Instructions Recorded Confirmed Last Taken Type atenolol 50 mg tablet 50 mg PO DAILY@04/19/19 02/20/20 02/20/20 08:00 History celecoxib 200 mg capsule 200 mg PO BID@04/19/19 02/20/20 02/20/20 08:00 History aspirin [Aspirin Low Dose] 81 mg PO DAILY@10/23/19 02/20/20 02/20/20 08:00 History gabapentin 300 mg PO DAILY@10/23/19 02/20/20 02/19/20 History tizanidine 4 mg tablet 4 mg PO Q6H PRN #180 tab 02/01/20 02/20/20 Unknown Rx Effexor XR 150 mg PO DAILY@02/20/20 02/20/20 02/20/20 History amlodipine 5 mg PO DAILY@02/20/20 02/20/20 02/20/20 08:00 History aripiprazole 5 mg PO DAILY@02/20/20 02/20/20 02/20/20 08:00 History cholecalciferol (vitamin D3) 10 mcg PO DAILY@02/20/20 02/20/20 02/20/20 08:00 History [Vitamin D3] cyanocobalamin (vitamin B-12) 50 mcg PO DAILY@02/20/20 02/20/2002/19/20 08:00 History [Vitamin B-12] glimepiride 4 mg PO BID@08,02/20/20 02/20/20 02/20/20 08:00 History insulin glargine [Lantus Solostar 25 unit SUBCUT DAILY@19 02/20/20 02/20/20 02/19/20 History U-100 Insulin] levothyroxine 75 mcg PO DAILY@02/20/20 02/20/20 02/20/20 08:00 History losartan-hydrochlorothiazide 1 tab PO DAILY@02/20/20 02/20/20 02/20/20 History metformin 500 mg PO DAILY@02/20/20 02/20/20 02/19/20 History sulfamethoxazole-trimethoprim 1 tab PO BID 02/20/20 02/20/20 02/19/20 History finished 02/19/2020 Allergies Allergy/AdvReac Type Severity Reaction Status Date / Time No Known Allergies Allergy Verified 02/20/20 12:22 Current Medications Current Medications Generic Name Dose Route Start Last Admin Trade Name Freq PRN Reason Stop Dose Admin Sodium Chloride 1,000 mls @ 75 mls/hr 02/20/20 16:52 02/20/20 17:22 Sodium Chloride 0.9% IV 75 mls/hr .[id number] PRUDENCE Administration Insulin Aspart 0 unit 02/20/20 18:00 02/20/20 17:23 Insulin Aspart 100 Unit/1 Ml SUBCUT Not Given WM&BEDTIME PRUDENCE Protocol PFSH Acute PFSH: Medical History (Updated 02/20/20 @ 17:39 by Solis Corcoran MD) Chronic kidney disease CVA (cerebral vascular accident) Reports this affected her right side, and occurred January 2019. No significant residual. Depression Diabetes mellitus type 2, uncontrolled Dysphagia Essential (primary) hypertension Hypertension Hypothyroidism Multiple sclerosis Neuropathy of both feet RLS (restless legs syndrome) Surgical History (Updated 02/20/20 @ 12:15 by Valentin Johnson MD) History of back surgery History of colonoscopy History of esophagogastroduodenoscopy (EGD) History of surgery on left wrist History of surgery on right wrist Family History Other Cancer Epilepsy Hypertension Social History Smoking and tobacco status: former smoker Alcohol intake: current Alcohol intake frequency: few times a month History of recent travel: No Vitals/I&O/Wt Last Vital Signs Temp 97.6 F 02/20/20 10:50 Pulse 89 02/20/20 15:15 Resp 15 02/20/20 15:15 BP 102/64 02/20/20 15:15 Pulse Ox 96 02/20/20 15:15 Weight last 48 hrs Weight 177 lb Physical Exam Narrative: EXAM NARRATIVE: The skin over the left hip is clean and healthy. She has clear shortening and external rotation of the left hip. There is exquisite pain with motion of the left hip. She will flex and extend her toes and ankle on the left. Her sensation is grossly intact to light touch. Urinary Catheter Management^: Powell: Cath Placed During This Visit: yes Urinary Catheter Date of Insertion: 02/20/20 Urinary Catheter Time of Insertion: 17:00 Data Imaging^: Xray Ortho: My impression: An AP and lateral images of the left proximal femur are reviewed revealing a comminuted intertrochanteric hip fracture consisting of the head and neck and shaft fragments and a large lesser trochanteric fragment. A&P Assessment and plan (1) Intertrochanteric fracture of left hip: I discussed options with the patient.. I told the patient we could treat this nonoperatively but certainly they would be at risk for medical problems without surgery. Theywould have problems with pain that would require narcotics for pain control. They would require a long period of bedrest data processing auditor risk for pneumonia and skin breakdown. I discussed surgical intervention with the patient. I told them with open reduction internal fixation they should be able to be mobilized and resume ambulatory status. We can eliminate the problems associated with prolonged bed rest and would have better control of pain. Certainly there would be inherent risk with surgery. These would would include the risk of cardiac complications, stroke, infection, and even . I discussed risk of any orthopedic implant including nonunion, malunion, a component failure. I discussed the possible need for component removal. I discussed risk of deep venous thromboses and pulmonary emboli that are present with any treatment and the importance of DVT prophylaxis. The patient expressed good understanding of alternative treatments, seem to comprehend, and agrees to surgical intervention. I discussed postoperative rehabilitation with her. I would suspect her to have somewhat limited weightbearing on the left hip. I am not certain she will build to comply with a postop boot on the right and maintain ambulatory status. She also has some motor loss as a result of her stroke that may make regaining ambulatory status difficult. The family needs to be prepared for a prison placement. 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
[2020-02-20 17:50] LABS: Add Urine Microscopic? NO
[2020-02-20 18:43] LABS: Bilirubin Urine Neg (Negative); Blood Urine Neg (Negative); Glucose Urine UA Norm (Normal); Ketones Urine Negative (Negative); Leukocyte Esterase Urine Negative (Negative); Nitrate Urine Negative (Negative); Protein Urine Neg (Negative); Urine Appearance Clear (CLEAR); Urine Color Yellow (Yellow); Urobilinogen Urine Norm (Negative); pH Urine 5 (5-7)
[2020-02-20] MEDS: sennosides 8.6 mg Tablet 17.2 MG PO (20:10)
[2020-02-20] MEDS: HYDROcodone-acetaminophen 5-325 mg Tablet 1 TAB PO (20:10)
[2020-02-20 21:47] LABS: Glucose Point of Care 58 mg/dL (70-110)
[2020-02-20 21:47] LABS: Glucose Point of Care 52 mg/dL (70-110)
[2020-02-20 21:53] LABS: Glucose Point of Care 50 mg/dL (70-110)
[2020-02-20] MEDS: dextrose 5% 1,000 ML 100 ML (22:19)
[2020-02-20] MEDS: dextrose 5% 1,000 ML 100 ML IV (23:54)
[2020-02-21] VITALS (21 sets, daily range): BP systolic 98–188; BP diastolic 62–86; PULSE 71–96; RESP 16–18; TEMP 36.6–37.2; O2SAT 92–100
--- NOTE | 2020-02-21 | XR_ITS ---
WS: [id number] XR hip LT 2-3V wo/w pel* [id number] REASON FOR EXAM: ORIF left hip FINDINGS: Intramedullary krzysztof and femoral nail fixation of three-part intertrochanteric fracture. Surgical appl iances and bony fragments are in good position and alignment. XR/XR hip LT 2-3V wo/w pel* [id number] IMPRESSION: Internal fixation of three-part intertrochanteric fracture as above.
--- NOTE | 2020-02-21 | SCC_ITS ---
Procedure Done: Open reduction and internal fixation left hip with intramedullary device 49.7 seconds of fluoroscopic guidance, for a cumulative dose of 7.07 mGy, was provided to Dr. Corcoran by the radiology department. C-arm images of the LEFT hip were saved for the patient's permanent record. [facility] HOSPITALDilshad
[2020-02-21] MEDS: morphine 4 mg/mL SDV 1 mL 2 MG IVP ×2 (00:39→20:56)
[2020-02-21] MEDS: ondansetron 2 mg/ML SDV 2 mL 4 MG IVP (00:40)
[2020-02-21 00:59] LABS: Glucose Point of Care 73 mg/dL (70-110)
[2020-02-21 02:36] LABS: Basophils # 0.1 10^3/uL (0.0-0.1); Basophils % 0.5 %; Eosinophils # 0.2 10^3/uL (0.0-0.8); Eosinophils % 1.5 %; Hematocrit 29.8 % (37.0-47.0); Hemoglobin 9.5 g/dL (11.5-15.3); Lymphocytes # 3.4 10^3/uL (0.8-4.8); Lymphocytes % 30.4 %; Mean Corpuscular HGB Conc 31.9 g/dL (30.0-36.0); Mean Corpuscular Hemoglobin 29.7 pg (28.0-34.0); Mean Corpuscular Volume 93.1 fL (81-99); Mean Platelet Volume 11.1 fL (7.4-10.4); Monocytes # 1.2 10^3/uL (0.2-0.9); Monocytes % 10.4 %; Neutrophils # 6.33 10^3/uL (1.8-7.7); Neutrophils % 56.7 %; Nucleated Red Blood Cells % 0 %; Platelet Count 252 10^3/cmm (130-400); Red Cell Distribution Width 13.7 % (12.1-15.1); White Blood Count 11.2 10^3/uL (4.0-10.0)
[2020-02-21 02:56] LABS: Alanine Aminotransferase 12 U/L (0-33); Albumin Level 3.5 g/dL (3.5-5.2); Alkaline Phosphatase 68 IU/L (35-105); Aspartate Amino Transferase 31 U/L (0-32); Blood Urea Nitrogen 31 mg/dL (8-23); Calcium 8.6 mg/dL (8.5-10.5); Carbon Dioxide 20 mmol/L (22-29); Chloride 102 mmol/L (98-107); Globulin 2.3 g/dL (1.3-4.6); Glucose 66 mg/dL (65-115); Osmolality Calculated 279 mOsm/kg (285-295); Sodium 132 mmol/L (136-145); Total Bilirubin 0.2 mg/dL (0.15-1.2); Total Protein 5.8 g/dL (6.6-8.7)
[2020-02-21 03:11] LABS: Anion Gap 14.9 (5-19); Potassium 4.9 mmol/L (3.5-5.1)
--- NOTE | 2020-02-21 05:39 | PC.NURSE ---
Presurgical form completed. Noted no coag studies and no type and screen. Ordered stat per protocol. Lab contacted.
[2020-02-21 06:14] LABS: INR 1.05 (0.8-1.2)
--- NOTE | 2020-02-21 06:46 | P.ANESASSM_ITS ---
Pre-Anesthetic Assessment Pre-Anesthetic Assessment: Height/Weight: Height 1.75 m Weight 80.286 kg Temp Pulse Resp BP Pulse Ox 97.9 F 81 18 110/68 98 02/21/20 04:56 02/21/20 04:56 02/21/20 04:56 02/21/20 04:56 02/21/20 04:56 Preop Diagnosis: Hip fracture Proposed Procedure: Operation Date: 02/21/20 07:30 Proposed Procedures p Trochanteric Femoral Nail(Left) - Solis Corcoran MD Familial anesthetic complications: None Was Beta Rhianna taken within 24 hours: Yes Last intake: Intake Last Liquid Date 02/20/20 Last Liquid Time 22:00 Last Solid Date 02/20/20 Last Solid Time 19:00 Social: Social History: No alcohol and No tobacco Comment: former smoker Exam: Pre-Anes Outpt Exam: alert, oriented x 3, clear to auscultation bilaterally and regular rate & rhythm Airway: Cervical ROM: WNL MP: 2 Dentition: Other (no teeth) CV/HEM: CV/HEM: Anemia (chronic) and HTN : Comments: STEFANI GI: GI: GERD Metabolic: Metabolic: DM and Thyroid Neuropsych: Neuropsych: CVA (jan 2019 - no residual deficits) and Neuropathy (b/L feet d/t DM) Comments: Multiple sclerosis - patient denies used of steroids within the last year. Patient educated that surgery/anesthesia has been associated with exacerbations of MS Anesthetic Plan: ASA status: 3 Anesthesia: General Other: Will avoid succinylcholine and any degree of hyperthermia for Multiple sclerosis. Will ensure adequate reversal of NMB Risk of > 500 ml blood loss (7ml/kg in children): No Meds/Allergies Current Medications: Current Medications Generic Name Dose Route Start Last Admin Trade Name Freq PRN Reason Stop Dose Admin Hydrocodone Bitart /Acetaminophen 1 tab 02/20/20 16:52 02/20/20 20:10 Hydrocodone-Acet aminophen 5-325 Mg Tablet PO 1 tab Q6H PRN Administration pain Sodium Chloride 1,000 mls @ 75 ml s/hr 02/20/20 16:52 02/21/20 05:34 Sodium Chloride 0.9% IV Not Given .[id number] PRUDENCE Dextrose 1,000 mls @ 100 m ls/hr 02/20/20 22:30 12/08/20 23:54 D5w IV 100 mls/hr .Q10H PRUDENCE Administration Insulin Aspart 0 unit 02/20/20 18:00 02/20/20 21:00 Insulin Aspart 1 00 Unit/1 Ml SUBCUT Not Given WM&BEDTIME PRUDENCE Protocol Morphine Sulfate 2 mg 02/20/20 16:52 02/21/20 00:39 Morphine 4 Mg/Ml Sdv 1 Ml IVP 2 mg Q4H PRN Administration SEVERE PAIN Ondansetron HCl 4 mg 02/20/20 16:52 02/21/20 00:40 Ondansetron 2 Mg /Ml Sdv 2 Ml IVP 4 mg Q6H PRN Administration vomiting, or N/V if npo Senna 17.2 mg 02/20/20 21:00 02/20/20 20:10 Sennosides 8.6 M g Tablet PO 17.2 mg BEDTIME PRUDENCE Administration PFSH Anesthesia PFSH: Medical History (Updated 02/20/20 @ 17:39 by Solis Corcoran MD) Chronic kidney disease CVA (cerebral vascular accident) Reports this affected her right side, and occurred January 2019. No significant residual. Depression Diabetes mellitus type 2, uncontrolled Dysphagia Essential (primary) hypertension Hypertension Hypothyroidism Multiple sclerosis Neuropathy of both feet RLS (restless legs syndrome) Surgical History (Updated 02/20/20 @ 12:15 by Valentin Johnson MD) History of back surgery History of colonoscopy History of esophagogastroduodenoscopy (EGD) History of surgery on left wrist History of surgery on right wrist Family History Other Cancer Epilepsy Hypertension Social History Smoking and tobacco status: former smoker Alcohol intake: current Alcohol intake frequency: few times a month History of recent travel: No Data Anesthesia CBC & Chem 7: 02/21/20 02:11 02/21/20 02:11 Other Labs: Laboratory Results - last 48 hr 02/20/20 02/20/20 02/20/20 11:07 11:07 17:02 WBC 10.8 H RBC 3.52 L Hgb 10.2 L Hct 32.5 L MCV 92.3 MCH 29.0 MCHC 31.4 RDW 13.6 Plt Count 314 MPV 11.2 H Neut % (Auto) 75.3 Lymph % (Auto) 17.1 [place] % (Auto) 5.1 Eos % (Auto) 1.4 Baso % (Auto) 0.8 Neut # (Auto) 8.14 H Lymph # (Auto) 1.9 [place] # (Auto) 0.6 Eos # (Auto) 0.2 Baso # (Auto) 0.1 Nucleated RBC % (auto) 0 Nucleated RBCs # 0.0 PT INR APTT Sodium 135 L Potassium 4.2 Chloride 102 Carbon Dioxide 19 L Anion Gap 18.2 BUN 29 H Creatinine 3.2 H GFR Calculation Not Reportable Glucose 81 POC Glucose Calculated Osmolality 285 Calcium 8.9 Total Bilirubin 0.2 AST 16 ALT 12 Alkaline Phosphatase 71 Total Protein 6.8 Albumin 3.9 Globulin 2.9 Urine Color Yellow Urine Appearance Clear Urine pH 5 Ur Specific Hoskins 1.010 Urine Protein Neg Urine Glucose (UA) Norm Urine Ketones Negative Urine Blood Neg Urine Nitrate Negative Urine Bilirubin Neg Urine Urobilinogen Norm Ur Leukocyte Esterase Negative 02/20/20 02/20/20 02/20/20 17:11 21:12 21:31 WBC RBC Hgb Hct MCV MCH MCHC RDW Plt Count MPV Neut % (Auto) Lymph % (Auto) [place] % (Auto) Eos % (Auto) Baso % (Auto) Neut # (Auto) Lymph # (Auto) [place] # (Auto) Eos # (Auto) Baso # (Auto) Nucleated RBC % (auto) Nucleated RBCs # PT INR APTT Sodium Potassium Chloride Carbon Dioxide Anion Gap BUN Creatinine GFR Calculation Glucose POC Glucose 91 52 58 Calculated Osmolality Calcium Total Bilirubin AST ALT Alkaline Phosphatase Total Protein Albumin Globulin Urine Color Urine Appearance Urine pH Ur Specific Hoskins Urine Protein Urine Glucose (UA) Urine Ketones Urine Blood Urine Nitrate Urine Bilirubin Urine Urobilinogen Ur Leukocyte Esterase 02/20/20 02/21/20 02/21/20 21:50 00:55 02:11 WBC 11.2 H RBC 3.20 L Hgb 9.5 L Hct 29.8 L MCV 93.1 MCH 29.7 MCHC 31.9 RDW 13.7 Plt Count 252 MPV 11.1 H Neut % (Auto) 56.7 Lymph % (Auto) 30.4 [place] % (Auto) 10.4 Eos % (Auto) 1.5 Baso % (Auto) 0.5 Neut # (Auto) 6.33 Lymph # (Auto) 3.4 [place] # (Auto) 1.2 H Eos # (Auto) 0.2 Baso # (Auto) 0.1 Nucleated RBC % (auto) 0 Nucleated RBCs # 0.0 PT INR APTT Sodium Potassium Chloride Carbon Dioxide Anion Gap BUN Creatinine GFR Calculation Glucose POC Glucose 50 73 Calculated Osmolality Calcium Total Bilirubin AST ALT Alkaline Phosphatase Total Protein Albumin Globulin Urine Color Urine Appearance Urine pH Ur Specific Hoskins Urine Protein Urine Glucose (UA) Urine Ketones Urine Blood Urine Nitrate Urine Bilirubin Urine Urobilinogen Ur Leukocyte Esterase 02/21/20 02/21/20 02:11 05:52 WBC RBC Hgb Hct MCV MCH MCHC RDW Plt Count MPV Neut % (Auto) Lymph % (Auto) [place] % (Auto) Eos % (Auto) Baso % (Auto) Neut # (Auto) Lymph # (Auto) [place] # (Auto) Eos # (Auto) Baso # (Auto) Nucleated RBC % (auto) Nucleated RBCs # PT 14.00 INR 1.05 APTT 29.0 Sodium 132 L Potassium 4.9 Chloride 102 Carbon Dioxide 20 L Anion Gap 14.9 BUN 31 H Creatinine 3.3 H GFR Calculation Not Reportable Glucose 66 POC Glucose Calculated Osmolality 279 L Calcium 8.6 Total Bilirubin 0.2 AST 31 ALT 12 Alkaline Phosphatase 68 Total Protein 5.8 L Albumin 3.5 Globulin 2.3 Urine Color Urine Appearance Urine pH Ur Specific Hoskins Urine Protein Urine Glucose (UA) Urine Ketones Urine Blood Urine Nitrate Urine Bilirubin Urine Urobilinogen Ur Leukocyte Esterase Cardiac Studies: No Data to Display
[2020-02-21] MEDS: sodium chloride 0.9% 1,000 ML 30 ML IV (07:14)
--- NOTE | 2020-02-21 08:36 | PM.OP ---
Operative Report Date of procedure: February 21, 2020 Pre-op Diagnosis: Left intratrochanteric hip fracture Post-op diagnosis: same Post-op Findings: Same Procedure Done: Open reduction and internal fixation left hip with intramedullary device Implants: [place] Gamma nail [id number] 95mm lag screw Pathology: none sent Surgeon: Solis Corcoran Anesthesia: Nerve Block (Spinal) Estimated blood loss (mL): 100 Complications: None Findings: The patient had a 3 part intertrochanteric fracture consisting of a head neck shaft and lesser trochanteric fragment Condition: stable Disposition: PACU Procedure: The patient was taken to the operating room. They were given 1 g of Ancef. They were positioned on the fracture table with the right lower extremity in gentle traction. A timeout was performed. A 2 cm long incision was made proximal to the greater trochanter scalpel blade. Dissection was carried down to tip the greater trochanter. A guidepin was passed manually from the tip of the trochanter down the shaft. The proximal reamer was utilized to open up the proximal canal. An 11 mm by 360 Mahi gamma nail was passed down the canal without difficulty. Under visualization of fluoroscopy a guidepin was driven up into the head and neck at 125? angle. It was measured at 95 mm in length and a lag screw similar length was then placed and locked into place with the proximal locking screw. As the lag screw engaged cortical bone distal to the fracture site distal leg screws were not placed. intraoperative imaging was obtained verifying satisfactory position of the hardware and reduction of the fracture. Deep tissues were closed with 0 Vicryl as were subcutaneous tissues. The skin was closed with skin joana. Sterile dressings were applied. The patient was extubated and taken to recovery room in stable condition.
--- NOTE | 2020-02-21 09:05 | SUR.PHASEI ---
PT AWAKE ALERT ON RA PT WAS SPINAL ANESTHESIA, VSS PT ABLE TO MOVE BILAT LEGS AND RT KNEE, SPINAL LEVEL BELOW T 12, LEMUS TO DD WITH YELLOW URINE IN TUBING, DRESSING X 2 TO LT HIP D/I STRONG REGULAR PULSE NOTED TO LT FOOT. FOOT PINK WARM
[2020-02-21] MEDS: sodium chloride 0.9% 1,000 ML 75 ML IV (10:21)
[2020-02-21] MEDS: sennosides-docusate Tablet 2 TAB PO ×2 (10:41→17:48)
[2020-02-21] MEDS: mupirocin oint 22 gm 1 APPLIC NASAL ×2 (10:41→17:48)
[2020-02-21] MEDS: chlorhexidine gluconate 0.12% Btl 473 mL 30 ML MUCOUS MEM ×4 (10:42→21:21)
[2020-02-21] MEDS: HYDROcodone-acetaminophen 5-325 mg Tablet 1 TAB PO ×2 (10:42→16:42)
--- NOTE | 2020-02-21 11:07 | P.PN_ITS ---
Subjective Subjective: Interval history: Gia is directly postoperative. She is doing well. No specific concerns. Some pain in her hip. Medications: Reviewed: Yes Vitals/I&O/Wt Last Vital Signs Temp 98 F 02/21/20 09:05 Pulse 72 02/21/20 11:00 Resp 18 02/21/20 11:00 BP 133/81 02/21/20 09:05 Pulse Ox 96 02/21/20 11:00 02/20/20 02/21/20 02/21/20 22:59 06:59 14:59 Intake Total 540 / 540 60 / 60 Output Total 550 / 550 550 / 1100 600 / 600 Balance -10 / -10 -550 / -560 -540 / -540 Weight last 48 hrs Weight 80.286 kg Physical Exam Narrative: EXAM NARRATIVE: General exam is a white female no apparent distress Cardiovascular regular rate and rhythm without murmur. No S3 or S4 Lungs clear no wheezing or crackles Abdomen is soft with positive bowel sounds. Extremities no cyanosis clubbing or edema. Dressing left hip fracture clean and dry Urinary Catheter Management^: Powell: Cath Placed During This Visit: yes Reason for Continuing Indwelling Catheter: Required Immobilization for Trauma or Surgery or Anesthesia Urinary Catheter Date of Insertion: 02/20/20 Urinary Catheter Time of Insertion: 17:00 Data : 02/21/20 02:11 02/21/20 02:11 A&P Assessment and plan (1) Closed fracture of left hip: Left intertrochanteric hip fracture. Directly postoperative ORIF Continue pain control Lovenox for DVT prophylaxis Appreciate orthopedic consultation Will need placement Status: Acute Qualifiers: Encounter type: initial encounter Qualified Code(s): S72.002A - Fracture of unspecified part of neck of left femur, initial encounter for closed fracture (2) Acute kidney injury: Continue hydration Powell placement to monitor urine output Repeat renal function testing in the morning Avoid renal toxic medication. Hold all anti-inflammatories including Celebrex Status: Acute (3) Multiple sclerosis: Status: Acute (4) Diabetes mellitus type 2, uncontrolled: Sliding scale insulin. As p.o. intake will be variable hold long-acting insulin and glimepiride. Likely her hypoglycemic event last night was secondary to oral hypoglycemic she took prior to admission in the face of renal failure. Status: Acute Qualifiers: Coma presence: without coma (5) Essential (primary) hypertension: Continue a atenolol. Hold losartan, diuretic secondary to renal function and hold Norvasc as blood pressure is somewhat low currently. Status: Acute Additional A&P Information History of restless leg syndrome History of diabetic neuropathy History of recent right humerus fracture Hypothyroidism, continue home medications Depression, continue home medications Full code Lovenox for DVT prophylaxis 02/21/20 directly postoperative. Continue pain control, supportive care and hydration for acute kidney injury. Reassess tomorrow. Expect discharge Wednesday to shelter facility. Attestations Medical Necessity Statement*: Needs continued hospitalization for close monitoring following hip fracture repair Coding Level of Care Code Acute Receivable Manager for [facility] Diagnoses Closed fracture of left hip S72.002A Encounter type: initial encounter Acute kidney injury N17.9 Multiple sclerosis G35 Diabetes mellitus type 2, uncontrolled E11.65 Coma presence: without coma Essential (primary) hypertension I10
--- NOTE | 2020-02-21 11:57 | PC.NURSE ---
incision 2 incisions to left hip/thigh.
[2020-02-21 13:25] LABS: Glucose Point of Care 145 mg/dL (70-110)
--- NOTE | 2020-02-21 14:11 | PC.CHAP ---
Pastoral Care Encounter/Spiritual Assessment Type of Contact [] Declined sleeve presser operator visit [] Patient/Family/Request visit [] Outpatient visit [] Follow-up visit [] Physician referral [] Code/Alert [x] Routine visit [] Staff referral [] Actively dying [] Patient sleeping [] Family support [] [] Out of room [] Palliative care [] [] Receiving care in room [] Pre-surgical visit [] Trauma [] Long length of stay [] ICU visit [] Other: Relational/Emotional Strength [] Patient feels connected with others/family/visitors/staff [] Distress [] Loneliness/isolation [] Abandonment Spirituality of Patient [] Person of Mary [] Attends Yarsani of their Mary [] Believes in Prayer [] Reads Bible or Yazdanism materials [] There are Spiritual issues to be addressed Director Outpatient Services Interventions [] Prayer [] Active listening [] Non-anxious presence [] Spiritual/emotional support [] Crisis/trauma care [] Spiritual counseling [] Bereavement support [] Provided bereavement packet [] Provided Bible/devotional materials [] Provided toy/stuffed animal, coloring book to patient or family member [] Provided Communion [] Anointing/[place] [] Salvation [] Completed spiritual assessment [] Other: Impact on Illness or Injury [] Angry [] Fearful [] Anxious [] Often cries [] Exhaustion [] Unable to work [] Unable to attend jew [] Unable to walk/stand [] Unable to read [] Unable to drive [] Unable to eat/drink [] Unable to sleep [] Unable to be with family [] Patient intubated [] Other: Summary Time spent with patient
[2020-02-21] MEDS: aspirin 81 mg EC Tablet PO (16:25)
[2020-02-21] MEDS: ARIPiprazole 10 mg Tablet 5 MG PO (16:25)
[2020-02-21] MEDS: gabapentin 300 mg Capsule PO (16:25)
[2020-02-21] MEDS: levothyroxine 150 mcg Tablet 75 MCG PO (16:26)
[2020-02-21] MEDS: atenolol 50 mg Tablet PO (16:26)
[2020-02-21] MEDS: venlafaxine ER (24HR) 150 mg Capsule PO (16:27)
[2020-02-21 17:36] LABS: Glucose Point of Care 252 mg/dL (70-110)
[2020-02-21] MEDS: tizanidine 4 mg Tablet PO (17:48)
--- NOTE | 2020-02-21 18:32 | ANE.PACU2 ---
Inpatient post-anesthesia follow up: Airway intact: Yes Vital signs: Temperature 98.6 F Pulse Rate [Apical ] 69 Pulse Rate 96 Respiratory Rate 18 Blood Pressure [Ri ght Arm] 109/76 Blood Pressure 115/71 Pulse Oximetry 92 Oxygen Delivery Me thod [ Room Air Current Rate & Del rene] Oxygen Delivery Me thod Room Air Oxygen Flow Rate [ Current Rate 0 & Delivery] Fraction of Inspir ed Oxygen Hydration adequate: Yes Nausea and vomiting: No Pain level: 1 Mental status: Baseline
[2020-02-21 21:01] LABS: Glucose Point of Care 266 mg/dL (70-110)
[2020-02-21] MEDS: sennosides 8.6 mg Tablet 17.2 MG PO (21:20)
[2020-02-21] MEDS: sodium chloride 0.9% 1,000 ML 100 ML IV (23:16)
[2020-02-22 02:23] LABS: Alanine Aminotransferase 8 U/L (0-33); Albumin Level 3.1 g/dL (3.5-5.2); Alkaline Phosphatase 62 IU/L (35-105); Anion Gap 13.3 (5-19); Aspartate Amino Transferase 27 U/L (0-32); Blood Urea Nitrogen 35 mg/dL (8-23); Calcium 8.4 mg/dL (8.5-10.5); Carbon Dioxide 18 mmol/L (22-29); Chloride 105 mmol/L (98-107); Globulin 2.6 g/dL (1.3-4.6); Glucose 180 mg/dL (65-115); Osmolality Calculated 285 mOsm/kg (285-295); Potassium 5.3 mmol/L (3.5-5.1); Sodium 131 mmol/L (136-145); Total Bilirubin 0.2 mg/dL (0.15-1.2); Total Protein 5.7 g/dL (6.6-8.7)
[2020-02-22 03:55] LABS: Basophils % 0.3 %; Eosinophils % 0.2 %; Hematocrit 27.8 % (37.0-47.0); Hemoglobin 8.2 g/dL (11.5-15.3); Lymphocytes # 2.4 10^3/uL (0.8-4.8); Lymphocytes % 24.2 %; Mean Corpuscular HGB Conc 29.5 g/dL (30.0-36.0); Mean Corpuscular Hemoglobin 29.9 pg (28.0-34.0); Mean Corpuscular Volume 101.5 fL (81-99); Mean Platelet Volume 11.1 fL (7.4-10.4); Monocytes # 1.4 10^3/uL (0.2-0.9); Monocytes % 13.7 %; Neutrophils # 6.12 10^3/uL (1.8-7.7); Neutrophils % 61.2 %; Nucleated Red Blood Cells % 0 %; Platelet Count 229 10^3/cmm (130-400); Red Blood Count 2.74 10^6/uL (4.1-5.3)
[2020-02-22 05:02] VITALS: BP 95/63; PULSE 82; RESP 18; TEMP 36.8; O2SAT 95
--- NOTE | 2020-02-22 06:43 | PC.NURSE ---
andrea this nurse removed pt's andrea at 0630. 200 mL bright yellow urine drained from bag. pt educated on using call light to get assistance up to bsc when she feels the need to urinate.
[2020-02-22 06:56] LABS: Glucose Point of Care 178 mg/dL (70-110)
[2020-02-22 07:25] VITALS: BP 98/65; PULSE 89; RESP 95; TEMP 36.7; O2SAT 95
[2020-02-22] MEDS: HYDROcodone-acetaminophen 5-325 mg Tablet 1 TAB PO ×2 (07:38→17:59)
[2020-02-22] MEDS: sennosides-docusate Tablet 2 TAB PO ×2 (08:52→17:59)
[2020-02-22] MEDS: aspirin 81 mg EC Tablet PO (08:53)
[2020-02-22] MEDS: ARIPiprazole 10 mg Tablet 5 MG PO (08:53)
[2020-02-22] MEDS: gabapentin 300 mg Capsule PO (08:53)
[2020-02-22] MEDS: venlafaxine ER (24HR) 150 mg Capsule PO (08:54)
[2020-02-22] MEDS: mupirocin oint 22 gm 1 APPLIC NASAL ×2 (08:54→18:02)
[2020-02-22] MEDS: chlorhexidine gluconate 0.12% Btl 473 mL 30 ML MUCOUS MEM ×4 (08:54→22:56)
[2020-02-22] MEDS: levothyroxine 150 mcg Tablet 75 MCG PO (08:55)
[2020-02-22] MEDS: enoxaparin 40 mg/0.4 mL Syringe SUBCUT (10:29)
[2020-02-22] MEDS: sodium chloride 0.9% 1,000 ML 100 ML IV (10:30)
[2020-02-22] MEDS: sodium chloride 0.9% 500 ML 999 ML IV (10:32)
--- NOTE | 2020-02-22 10:45 | P.PN_ITS ---
Subjective Subjective: Interval history: Gia reports she is doing okay. Pain is under control. No specific concerns. Nurse held a atenolol this morning as blood pressure was low. Medications: Reviewed: Yes Vitals/I&O/Wt Last Vital Signs Temp 98.1 F 02/22/20 07:25 Pulse 89 02/22/20 07:25 Resp 95 H 02/22/20 07:25 BP 98/65 02/22/20 07:25 Pulse Ox 95 02/22/20 07:25 02/21/20 02/22/20 02/22/20 22:59 06:59 14:59 Intake Total 580 / 640 60 / 700 1000 / 1000 Output Total 1225 / 1825 380 / 2205 Balance -645 / -1185 -320 / -1505 1000 / 1000 Weight last 48 hrs Weight 80.286 kg Physical Exam Narrative: EXAM NARRATIVE: General exam is a white female no apparent distress Cardiovascular regular rate and rhythm without murmur. No S3 or S4 Lungs clear no wheezing or crackles Abdomen is soft with positive bowel sounds. Extremities no cyanosis clubbing or edema. Dressing left hip fracture clean and dry Urinary Catheter Management^: Powell: Cath Placed During This Visit: yes, but has since been removed by the nurse Reason for Continuing Indwelling Catheter: Decision to DC Catheter Urinary Catheter Date of Insertion: 02/20/20 Urinary Catheter Time of Insertion: 17:00 Date Urinary Catheter Removed: 02/22/20 Time Urinary Catheter Discontinued: 06:30 Data : 02/22/20 01:38 02/22/20 01:38 A&P Assessment and plan (1) Closed fracture of left hip: Postoperative day #1 status post ORIF secondary to left intertrochanteric hip fracture. Pain medication as needed Lovenox for DVT prophylaxis Appreciate orthopedic consultation Trying to arrange placement Status: Acute Qualifiers: Encounter type: initial encounter Qualified Code(s): S72.002A - Fr acture of unspecified part of neck of left femur, initial encounter for closed fracture (2) Acute kidney injury: Continue hydration. 500 cc saline bolus secondary to lower blood pressure noted today Powell removed yesterday. Monitor for good output. If it does not occur may need replaced Renal function has improved somewhat. However, sodium slightly low in potassium slightly high. Recheck in the morning Avoid renal toxic medication. Hold all anti-inflammatories including Celebrex Status: Acute (3) Multiple sclerosis: Status: Acute (4) Diabetes mellitus type 2, uncontrolled: Sliding scale insulin. Should not be discharged on oral sulfonylurea Status: Acute Qualifiers: Coma presence: without coma (5) Essential (primary) hypertension: Continue a atenolol as blood pressure increases. Hold losartan, diuretic secondary to renal function and hold Norvasc as blood pressure is somewhat low currently. Status: Acute Additional A&P Information Acute postoperative blood loss anemia. Hemoglobin 8.2. Recheck in the morning. Mild hyperkalemia. Saline bolus. Recheck in the a.m. Mild hypotension. Bolus of saline will be given. History of restless leg syndrome History of diabetic neuropathy History of recent right humerus fracture Hypothyroidism, continue home medications Depression, continue home medications Full code Lovenox for DVT prophylaxis 02/21/20 directly postoperative. Continue pain control, supportive care and hydration for acute kidney injury. Reassess tomorrow. Expect discharge Wednesday to custodial facility. 02/22/20 patient improved although slightly hypotensive. Renal function slightly improved. Bolus of saline will be given, close follow-up of renal function and hemoglobin. May need Powell replaced. Not yet ready for discharge. Possible discharge tomorrow to skilled care. Attestations Medical Necessity Statement*: Needs continued hospitalization for close monitoring following hip fracture repair in this patient with multiple comor bidities including acute on chronic renal failure Coding Level of Care Code Acute Preparation Plant Repairer for [facility] F[facility] Diagnoses Closed fracture of left hip S72.002A Encounter type: initial encounter Acute kidney injury N17.9 Multiple sclerosis G35 Diabetes mellitus type 2, uncontrolled E11.65 Coma presence: without coma Essential (primary) hypertension I10
[2020-02-22 10:51] LABS: Glucose Point of Care 206 mg/dL (70-110)
[2020-02-22 11:38] VITALS: BP 124/79; PULSE 82; RESP 18; TEMP 36.6; O2SAT 90
[2020-02-22 15:18] VITALS: BP 107/56; PULSE 88; RESP 18; TEMP 36.5; O2SAT 92
[2020-02-22 16:59] LABS: Glucose Point of Care 219 mg/dL (70-110)
[2020-02-22 21:20] VITALS: PULSE 100; RESP 18; O2SAT 95
[2020-02-22 21:35] LABS: Glucose Point of Care 215 mg/dL (70-110)
[2020-02-23] VITALS (8 sets, daily range): BP systolic 110–154; BP diastolic 60–91; PULSE 88–115; RESP 17–18; TEMP 36.8–37.5; O2SAT 94–99
[2020-02-23] MEDS: sodium chloride 0.9% 1,000 ML 100 ML IV (00:56)
[2020-02-23] MEDS: HYDROcodone-acetaminophen 5-325 mg Tablet 1 TAB PO (05:00)
[2020-02-23 06:18] LABS: Basophils # 0.1 10^3/uL (0.0-0.1); Basophils % 0.5 %; Eosinophils # 0.2 10^3/uL (0.0-0.8); Eosinophils % 2.5 %; Hematocrit 23.5 % (37.0-47.0); Hemoglobin 7.3 g/dL (11.5-15.3); Lymphocytes % 20.3 %; Mean Corpuscular HGB Conc 31.1 g/dL (30.0-36.0); Mean Corpuscular Hemoglobin 29.7 pg (28.0-34.0); Mean Corpuscular Volume 95.5 fL (81-99); Mean Platelet Volume 10.8 fL (7.4-10.4); Monocytes # 0.9 10^3/uL (0.2-0.9); Monocytes % 9.3 %; Neutrophils # 6.43 10^3/uL (1.8-7.7); Neutrophils % 67.1 %; Nucleated Red Blood Cells % 0 %; Platelet Count 236 10^3/cmm (130-400); Red Blood Count 2.46 10^6/uL (4.1-5.3); White Blood Count 9.6 10^3/uL (4.0-10.0)
[2020-02-23 06:25] LABS: Alanine Aminotransferase < 5 U/L (0-33); Albumin Level 3.1 g/dL (3.5-5.2); Alkaline Phosphatase 56 IU/L (35-105); Anion Gap 15.2 (5-19); Aspartate Amino Transferase 42 U/L (0-32); Blood Urea Nitrogen 31 mg/dL (8-23); Calcium 8.5 mg/dL (8.5-10.5); Carbon Dioxide 16 mmol/L (22-29); Chloride 109 mmol/L (98-107); Globulin 2.4 g/dL (1.3-4.6); Glucose 162 mg/dL (65-115); Osmolality Calculated 290 mOsm/kg (285-295); Potassium 5.2 mmol/L (3.5-5.1); Sodium 135 mmol/L (136-145); Total Bilirubin 0.2 mg/dL (0.15-1.2); Total Protein 5.5 g/dL (6.6-8.7)
[2020-02-23 07:01] LABS: Glucose Point of Care 239 mg/dL (70-110)
--- NOTE | 2020-02-23 09:10 | PC.SOCIAL ---
IMM Page 2 of IMM explained to patient. Initialed, dated, and timed and placed in chart. Copy provided to patient.
[2020-02-23 11:21] LABS: Glucose Point of Care 220 mg/dL (70-110)
[2020-02-23] MEDS: sennosides-docusate Tablet 2 TAB PO (11:28)
[2020-02-23] MEDS: atenolol 50 mg Tablet PO (11:28)
[2020-02-23] MEDS: aspirin 81 mg EC Tablet PO (11:28)
[2020-02-23] MEDS: gabapentin 300 mg Capsule PO (11:28)
[2020-02-23] MEDS: sodium bicarbonate 650 mg Tablet PO (11:28)
[2020-02-23] MEDS: ARIPiprazole 10 mg Tablet 5 MG PO (11:28)
[2020-02-23] MEDS: levothyroxine 150 mcg Tablet 75 MCG PO (11:29)
[2020-02-23] MEDS: venlafaxine ER (24HR) 150 mg Capsule PO (11:29)
[2020-02-23] MEDS: chlorhexidine gluconate 0.12% Btl 473 mL 30 ML MUCOUS MEM ×2 (11:29→13:24)
[2020-02-23] MEDS: enoxaparin 40 mg/0.4 mL Syringe SUBCUT (11:30)
--- NOTE | 2020-02-23 12:23 | PM.DCS ---
Discharge Providers Date of Admission: 02/20/20 11:40 Date of Discharge: February 23, 2020 Attending Provider at Admission: Valentin Johnson MD Attending Provider at Discharge: Valentin Johnson MD Primary Care Provider: Malik Nicolas MD Diagnoses at Discharge Discharge Diagnosis (1) Closed fracture of left hip: Status: Acute Qualifiers: Encounter type: initial encounter Qualified Code(s): S72.002A - Fracture of unspecified part of neck of left femur, initial encounter for closed fracture (2) Acute kidney injury: Status: Acute (3) Multiple sclerosis: Status: Acute (4) Diabetes mellitus type 2, uncontrolled: Status: Acute Qualifiers: Coma presence: without coma (5) Essential (primary) hypertension: Status: Acute Reason for Visit Reason for Visit: L HIP PAIN, FALL Hospital Course Hospital Course Gia is a 69-year-old white female who presented to the hospital after a fall, and sustained a fracture to her left hip. She has underlying MS and has significant balance and gait issues. She did not have a syncopal episode or incur any other injuries. Orthopedics was consulted. She underwent ORIF on February 20 without complication. While in the hospital she did have acute on chronic kidney injury identified, present on admission, that was treated with hydration and discontinuation of renal toxic medications. Postoperative she did have acute blood loss anemia, requiring 1 unit of packed red blood cells. By the time of discharge she was stable, and ready to transition to skilled care. She will finish 4 weeks of Lovenox. She will get a hemoglobin and BMP in 3 to 5 days. Discharge creatinine 2.2 which is her baseline. Hemoglobin 7.3 at discharge, prior to receiving 1 unit of packed red blood cells. No repeat hemoglobin following transfusion was performed as no evidence of ongoing bleeding was present. Physical Exam Narrative: EXAM NARRATIVE: General exam is no apparent distress Cardiovascular regular rate and rhythm Lungs clear Abdomen is soft, positive bowel sounds Extremity no cyanosis clubbing or edema, wound clean and dry Urinary Catheter Management^: Powell: Cath Placed During This Visit: yes, but has since been removed by the nurse Reason for Continuing Indwelling Catheter: Decision to DC Catheter Urinary Catheter Date of Insertion: 02/20/20 Urinary Catheter Time of Insertion: 17:00 Date Urinary Catheter Removed: 02/22/20 Time Urinary Catheter Discontinued: 06:30 Discharge Data Data Completed and Pending: Completed Studies During Hospitalization Category Date Time Status XR chest 1V emerald ble [id number] Urgent Exams 02/20/20 11:17 Completed XR hip LT 2-3V wo /w pel* [id number] Rout ine Exams 02/21/20 Completed XR hip LT 2-3V wo /w pel* [id number] Stat Exams 02/20/20 10:57 Completed Pending at discharge Category Date Time Status Complete Blood Co unt w/Auto AM LABS Lab 02/24/20 04:00 Ordered Labs from last 24 hours 02/23/20 02/23/20 02/23/20 11:02 06:52 06:03 WBC RBC Hgb Hct MCV MCH MCHC RDW Plt Count MPV Neut % (Auto) Lymph % (Auto) [place] % (Auto) Eos % (Auto) Baso % (Auto) Neut # (Auto) Lymph # (Auto) [place] # (Auto) Eos # (Auto) Baso # (Auto) Nucleated RBC % (a uto) Nucleated RBCs # Sodium 135 L Potassium 5.2 H Chloride 109 H Carbon Dioxide 16 L Anion Gap 15.2 BUN 31 H Creatinine 2.2 H GFR Calculation Not Reportable Glucose 162 H POC Glucose 220 239 Calculated Osmolal ity 290 Calcium 8.5 Total Bilirubin 0.2 AST 42 H ALT < 5 Alkaline Phosphata se 56 Total Protein 5.5 L Albumin 3.1 L Globulin 2.4 Blood Type Rho(D) Type Antibody Screen Crossmatch 02/23/20 02/22/20 02/22/20 06:03 21:15 16:34 WBC 9.6 RBC 2.46 L Hgb 7.3 L Hct 23.5 L MCV 95.5 MCH 29.7 MCHC 31.1 RDW 14.0 Plt Count 236 MPV 10.8 H Neut % (Auto) 67.1 Lymph % (Auto) 20.3 Pacific % (Auto) 9.3 Eos % (Auto) 2.5 Baso % (Auto) 0.5 Neut # (Auto) 6.43 Lymph # (Auto) 2.0 Pacific # (Auto) 0.9 Eos # (Auto) 0.2 Baso # (Auto) 0.1 Nucleated RBC % (a uto) 0 Nucleated RBCs # 0.0 Sodium Potassium Chloride Carbon Dioxide Anion Gap BUN Creatinine GFR Calculation Glucose POC Glucose 215 219 Calculated Osmolal ity Calcium Total Bilirubin AST ALT Alkaline Phosphata se Total Protein Albumin Globulin Blood Type Rho(D) Type Antibody Screen Crossmatch 02/21/20 05:52 WBC RBC Hgb Hct MCV MCH MCHC RDW Plt Count MPV Neut % (Auto) Lymph % (Auto) [place] % (Auto) Eos % (Auto) Baso % (Auto) Neut # (Auto) Lymph # (Auto) [place] # (Auto) Eos # (Auto) Baso # (Auto) Nucleated RBC % (a uto) Nucleated RBCs # Sodium Potassium Chloride Carbon Dioxide Anion Gap BUN Creatinine GFR Calculation Glucose POC Glucose Calculated Osmolal ity Calcium Total Bilirubin AST ALT Alkaline Phosphata se Total Protein Albumin Globulin Blood Type A Positive Rho(D) Type Positive Antibody Screen Negative Crossmatch See Detail Vitals: Last Vital Signs Temp 98.9 F 02/23/20 12:12 Pulse 113 H 02/23/20 12:12 Resp 18 02/23/20 12:12 BP 130/82 02/23/20 12:12 Pulse Ox 96 02/23/20 12:12 Discharge Plan Discharge Patient Disposition: Xfer [facility] Condition: Stable Prescriptions: New hydrocodone-acetaminophen 5-325 mg Tablet 1 tab PO Q6H PRN (Reason: pain) Qty: 20 RF: 0 enoxaparin 40 mg/0.4 mL Syringe 40 mg SUBCUT Q24H 30 Days Qty: 12 RF: 0 sennosides-docusate sodium 8.6-50 mg Tablet 2 tab PO BID Qty: 60 RF: 0 sodium bicarbonate 650 mg Tablet 650 mg PO BID Qty: 60 RF: 0 Continued tizanidine 4 mg tablet 4 mg PO Q6H PRN (Reason: muscle spasms) Qty: 180 RF: 3 atenolol 50 mg tablet See Rx Instructions .ROUTE .COMPLEX Qty: 90 RF: 3 aspirin [Aspirin Low Dose] 81 mg Tablet,Delayed Release (Dr/Ec) 81 mg PO DAILY@08 RF: 0 gabapentin 300 mg capsule 300 mg PO DAILY@21 RF: 0 Vitamin B-12 50 mcg Tablet 50 mcg PO DAILY@08 RF: 0 Vitamin D3 10 mcg (400 unit) Tablet 10 mcg PO DAILY@08 RF: 0 amlodipine 5 mg tablet 5 mg PO DAILY@08 RF: 0 levothyroxine 75 mcg tablet 75 mcg PO DAILY@08 RF: 0 aripiprazole 5 mg tablet 5 mg PO DAILY@08 RF: 0 Lantus Solostar U-100 Insulin 100 unit/mL (3 mL) insulin pen 25 unit SUBCUT DAILY@19 RF: 0 Effexor XR 150 mg capsule,extended release 24hr 150 mg PO DAILY@08 RF: 0 Discontinued celecoxib [Celebrex] 200 mg capsule 200 mg PO BID@, RF: 0 glimepiride 4 mg tablet 4 mg PO BID@, RF: 0 metformin 500 mg tablet extended release 24 hr 500 mg PO DAILY@ RF: 0 losartan-hydrochlorothiazide 100-25 mg tablet 1 tab PO DAILY@08 RF: 0 sulfamethoxazole-trimethoprim 800-160 mg tablet 1 tab PO BID RF: 0 Discharge Orders: Discharge Order (Routine); Ordered 02/23/20 Ordered By: Valentin Johnson Referrals: [facility] [Outside] Malik Nicolas MD [Primary Care Provider] - 1-3 days (Follow-up with primary care provider at halfway facility CBC in 3 days, BMP in 3 days) Solis Corcoran MD [Physician] - 1 month Discharge Diet: Diabetic Discharge Activity: Increase activity as tolerated Activity Restrictions/Additional Instructions: Encourage fluids Avoid all anti-inflammatories Wound care instructions, orthopedic follow-up, weightbearing status all to be determined by Ortho prior to discharge. Follow-up with primary care provider at halfway facility 3 to 5 days with CBC for follow-up of anemia as well as BMP. Discharge Attestations Time Spent in Discharge Care*: greater than 30 min Quality Metrics Clinical Quality Measures During this hospital stay, did patient experience: None Coding Level of Care Code Acute Phthalic Acid Purifier for [facility] Fwd Diagnoses Closed fracture of left hip S72.002A Encounter type: initial encounter Acute kidney injury N17.9 Multiple sclerosis G35 Diabetes mellitus type 2, uncontrolled E11.65 Coma presence: without coma Essential (primary) hypertension I10
--- NOTE | 2020-02-23 12:32 | PC.CHAP ---
Pastoral Care Encounter/Spiritual Assessment Type of Contact [] Declined sales strategy manager visit [] Patient/Family/Request visit [] Outpatient visit [xx] Follow-up visit [] Physician referral [] Code/Alert [xx] Routine visit [] Staff referral [] Actively dying [] Patient sleeping [] Family support [] [] Out of room [] Palliative care [] [] Receiving care in room [] Pre-surgical visit [] Trauma [xx] Long length of stay [] ICU visit [xx] Other: Patient had not yet had sales strategy manager visit and wanted conversation and prayer. Relational/Emotional Strength [] Patient feels connected with others/family/visitors/staff [] Distress [] Loneliness/isolation [] Abandonment Spirituality of Patient [xx] Person of Mary [] Attends Mormonism of their Mary [xx] Believes in Prayer [] Reads Bible or Nondenominational materials [] There are Spiritual issues to be addressed Alarm Mechanism Adjuster Interventions [xx] Prayer [xx] Active listening [] Non-anxious presence [] Spiritual/emotional support [] Crisis/trauma care [] Spiritual counseling [] Bereavement support [] Provided bereavement packet [] Provided Bible/devotional materials [] Provided toy/stuffed animal, coloring book to patient or family member [] Provided Communion [] Anointing/[place] [] Salvation [xx] Completed spiritual assessment [] Other: Impact on Illness or Injury [] Angry [] Fearful [xx] Anxious [] Often cries [] Exhaustion [] Unable to work [] Unable to attend presybeterian [] Unable to walk/stand [] Unable to read [] Unable to drive [] Unable to eat/drink [] Unable to sleep [] Unable to be with family [] Patient intubated [] Other: Summary Patient expects to remain in hospital a bit longer. She is elderly and quite concerned about need for rehab in nursing facility for several weeks before returning home. She is afraid she may not be able to leave the nursing facility and will lose her home and every thing else. This was her special prayer request - that she goes home. Time spent with patient 4 minutes
[2020-02-23] MEDS: sodium chloride 0.9% (100 ml) 100 ML 175 ML (13:23)
== END 2020-02-23 14:55 | disposition skilled nursing facility (03) | DRG 481 ==
LOC: ER 11:41 → MEDSURG 14:51
PROVIDERS: Orthopaedic Surgery; Admitting Provider Internal Medicine; Emergency Provider Emergency Medicine; PCP Internal Medicine; Visit Provider Internal Medicine
PROC: 0QS706Z Reposition Left Upper Femur with Intramedullary Internal Fixation Device, Open Approach (ICD-10-PCS; CPT 27245; principal; 2020-02-21 07:30)
DX: S72.142A Displaced intertrochanteric fracture of left femur, initial encounter for closed fracture (principal); N17.9 Acute kidney failure, unspecified; D62 Acute posthemorrhagic anemia; W01.0XXA Fall on same level from slipping, tripping and stumbling without subsequent striking against object, initial encounter; Z91.81 History of falling; E11.22 Type 2 diabetes mellitus with diabetic chronic kidney disease; E11.65 Type 2 diabetes mellitus with hyperglycemia; I12.9 Hypertensive chronic kidney disease with stage 1 through stage 4 chronic kidney disease, or unspecified chronic kidney disease; N18.9 Chronic kidney disease, unspecified; Z86.73 Personal history of transient ischemic attack (TIA), and cerebral infarction without residual deficits; F32.9 Major depressive disorder, single episode, unspecified; E03.9 Hypothyroidism, unspecified; G35 Multiple sclerosis; E11.42 Type 2 diabetes mellitus with diabetic polyneuropathy; G25.81 Restless legs syndrome; Z87.891 Personal history of nicotine dependence; E87.5 Hyperkalemia; I95.9 Hypotension, unspecified; Z79.82 Long term (current) use of aspirin; Z79.891 Long term (current) use of opiate analgesic
CPT/HCPCS: 12345; 36415; 36416; 36430; 51702; 71045; 73502; 76000; 80053; 81003; 82962; 85025; 85610; 85730; 86850; 86900; 86920; 93005; 96372; 96375; 97162; 97167; 97530; 97535; 99283; C1713; J0690; J1100; J1170; J1650; J1815; J2250; J2270; J2370; J2405; J2704; J3010; J7030; J7040; P9016

== ENCOUNTER → 2020-03-13 10:04 | Outpatient (BNVA) | payer MEDICARE, OTHER, SELFPAY | PROVIDERS: PCP Internal Medicine; Visit Provider Orthopaedic Surgery | DX: Z47.89 Encounter for other orthopedic aftercare (principal); S42.291D Other displaced fracture of upper end of right humerus, subsequent encounter for fracture with routine healing; W18.39XD Other fall on same level, subsequent encounter | CPT/HCPCS: 73502 ==

== ENCOUNTER → 2020-04-15 13:30 | Outpatient (BNVA) | payer MEDICARE, OTHER, SELFPAY | PROVIDERS: PCP Internal Medicine; Visit Provider Orthopaedic Surgery | DX: Z47.89 Encounter for other orthopedic aftercare (principal); S72.002D Fracture of unspecified part of neck of left femur, subsequent encounter for closed fracture with routine healing; X58.XXXD Exposure to other specified factors, subsequent encounter | CPT/HCPCS: 73502 ==

== ENCOUNTER → 2020-05-13 13:19 | Outpatient (BNVA) | payer MEDICARE, OTHER, SELFPAY | PROVIDERS: PCP Internal Medicine; Visit Provider Orthopaedic Surgery | DX: S42.291D Other displaced fracture of upper end of right humerus, subsequent encounter for fracture with routine healing (principal); S72.002D Fracture of unspecified part of neck of left femur, subsequent encounter for closed fracture with routine healing; S72.142D Displaced intertrochanteric fracture of left femur, subsequent encounter for closed fracture with routine healing; Z48.89 Encounter for other specified surgical aftercare; X58.XXXD Exposure to other specified factors, subsequent encounter | CPT/HCPCS: 73030; 73502 ==

== ENCOUNTER 2020-05-27 14:33 | Outpatient (CLI) | payer MEDICARE, OTHER, SELFPAY | END 2020-05-27 14:34 | disposition home or self-care (01) | LOC: WOUND 14:36 | PROVIDERS: PCP Internal Medicine; Visit Provider Nurse Practitioner Family | DX: E11.621 Type 2 diabetes mellitus with foot ulcer (principal); L97.412 Non-pressure chronic ulcer of right heel and midfoot with fat layer exposed | CPT/HCPCS: 11042; 11045; 87070; 87077; 87176; 87186; 87205; G0463; L3260 ==

== ENCOUNTER 2020-06-03 14:38 | Outpatient (CLI) | payer MEDICARE, OTHER, SELFPAY | END 2020-06-03 14:39 | disposition home or self-care (01) | LOC: WOUND 14:39 | PROVIDERS: PCP Internal Medicine; Visit Provider Nurse Practitioner Family | DX: E11.621 Type 2 diabetes mellitus with foot ulcer (principal); L97.412 Non-pressure chronic ulcer of right heel and midfoot with fat layer exposed | CPT/HCPCS: 11042 ==

== ENCOUNTER 2020-06-10 14:00 | Outpatient (CLI) | payer MEDICARE, OTHER, SELFPAY | END 2020-06-10 14:01 | disposition home or self-care (01) | PROVIDERS: PCP Internal Medicine; Visit Provider Thoracic Surgery (Cardiothoracic Vascular Surgery) | DX: E11.621 Type 2 diabetes mellitus with foot ulcer (principal); L97.412 Non-pressure chronic ulcer of right heel and midfoot with fat layer exposed | CPT/HCPCS: 11042 ==

== ENCOUNTER 2020-06-12 14:00 | Outpatient (CLI) | payer MEDICARE, OTHER, SELFPAY ==
--- NOTE | 2020-06-12 14:14 | XR_ITS ---
WS: [id number] Left foot, 3 views, 06/12/2020 Clinical Data: FOOT ULCER Comparison: None. Findings: There is a small bunion at the head of the left first metatarsal. Flexion deformities of the left sec ond through fifth toes are noted.There are no fractures or dislocations. There is a plantar spur. The re is a subcutaneous calcification adjacent to the posterior calcaneus. XR/XR foot LT min 3V* [id number] Impression: 1. Bunion at the head of the left first metatarsal. 2. Flexion deformities of the left second through fifth toes.
--- NOTE | 2020-06-12 14:14 | XR_ITS ---
WS: [id number] Right foot, 3 views, 06/12/2020 Clinical Data: FOOT ULCER Comparison: Right foot, 01/11/2020. Findings: There is a bunion at the head of the right first metatarsal. There are flexion deformities of the rig ht second through fifth phalanges. 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 There are no fractures or dislocations. The re is a plantar spur. XR/XR foot RT min 3V* [id number] Impression: 1. Bunion at head of right first metatarsal. 2. Flexion deformities of the right second through fifth toes. 3. 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
== END 2020-06-12 14:01 | disposition home or self-care (01) ==
PROVIDERS: PCP Internal Medicine; Visit Provider Thoracic Surgery (Cardiothoracic Vascular Surgery)
DX: E11.621 Type 2 diabetes mellitus with foot ulcer (principal); L89.613 Pressure ulcer of right heel, stage 3; M21.612 Bunion of left foot; M21.611 Bunion of right foot; M21.962 Unspecified acquired deformity of left lower leg; M21.961 Unspecified acquired deformity of right lower leg; M19.071 Primary osteoarthritis, right ankle and foot
CPT/HCPCS: 73630

== ENCOUNTER 2020-06-17 15:15 | Outpatient (CLI) | payer MEDICARE, OTHER, SELFPAY | END 2020-06-17 15:16 | disposition home or self-care (01) | LOC: WOUND 15:16 | PROVIDERS: PCP Internal Medicine; Visit Provider Nurse Practitioner Family | DX: E11.621 Type 2 diabetes mellitus with foot ulcer (principal); L97.412 Non-pressure chronic ulcer of right heel and midfoot with fat layer exposed | CPT/HCPCS: 11042 ==

== ENCOUNTER 2020-06-18 09:24 | Outpatient (CLI) | payer MEDICARE, OTHER, SELFPAY ==
--- NOTE | 2020-06-18 09:39 | USCV_ITS ---
Urbano Gia Age: 69 Gender: F : 1950 Exam Date: 06/18/2020 09:48 Ordering Phys: Jameson Soliz MD (Andy) ([email or web address] [place]) Technologist: [place] [facility] [place] PAD ULCER LT FOOT RIGHT LEFT Brachial 122.00 mmHg Brachial 121.00 mmHg Pressure (mmHg) Waveform Pressure (mmHg) Waveform 155.00 Above Knee 187.00 Below Knee 187.00 [employer] 240.00 171.00 DPA 140.00 1.50 Ankle/Brachial Index 136.00 Pre-Exercise Toe Pressure 153.00 Pre-Exercise Toe/Brachial Index 1.20 1.10 FINDINGS Normal resting ODILIA on the right side. Noncompressible vessels on the left side Normal resting TBIs bilaterally Some blunting of the dicrotic notch in the PVR waveforms bilaterally CONCLUSIONS Some features of arterial sclerosis bilaterally. No significant arterial obstruction. Dr Ayaz Savage MD [facility] (Electronically Signed) Final Date: 18 June 2020 20:17 S
--- NOTE | 2020-06-18 09:42 | XRR_ITS ---
PROCEDURE INFORMATION: Exam: XR Right Foot Exam date and time: 06/18/2020 10:25 AM Age: 69 years old Clinical indication: Condition or disease; Other: Type 2 dm w/foot ulcer TECHNIQUE: Imaging protocol: XR Right foot. Views: 3 or more views. COMPARISON: CR XR foot RT min 3V* [id number] 06/12/2020 2:20 PM FINDINGS: Bones/joints: There is decreased bone density. No fracture or other acute abnormalities are seen. Prominent DJD is present especially in the 1st metatarsophalangeal joint with joint space narrowing sclerosis and osteophytes. There is plantar calcaneal spurring. Atherosclerotic calcifications are seen. Soft tissues: Normal. XR/XR foot RT min 3V* [id number] IMPRESSION: 1. No acute abnormality. 2. 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
--- NOTE | 2020-06-18 09:42 | XRR_ITS ---
PROCEDURE INFORMATION: Exam: XR Left Foot Exam date and time: 06/18/2020 10:25 AM Age: 69 years old Clinical indication: Condition or disease; Other: Type 2 dm w/foot ulcer TECHNIQUE: Imaging protocol: XR Left foot. Views: 3 or more views. COMPARISON: CR XR foot LT min 3V* [id number] 06/12/2020 2:24 PM FINDINGS: Bones/joints: There is decreased bone density. No fracture or other acute abnormalities are seen. No bony destruction is seen. Prominent degenerative disease is present especially in the 1st metatarsophalangeal joint with joint space narrowing sclerosis and osteophytes. There is a large plantar calcaneal spur. Soft tissues: No gas or foreign bodies. Vasculature: Prominent atherosclerotic calcifications are present. XR/XR foot LT min 3V* [id number] IMPRESSION: 1. No acute abnormality. 2. Chronic DJD most prominently in the 1st metatarsophalangeal joint.
== END 2020-06-18 09:25 | disposition home or self-care (01) ==
LOC: RAD 09:32
PROVIDERS: PCP Internal Medicine; Visit Provider Thoracic Surgery (Cardiothoracic Vascular Surgery)
DX: E11.621 Type 2 diabetes mellitus with foot ulcer (principal); L89.613 Pressure ulcer of right heel, stage 3; M19.072 Primary osteoarthritis, left ankle and foot; M19.071 Primary osteoarthritis, right ankle and foot
CPT/HCPCS: 73630; 93923

== ENCOUNTER 2020-06-24 14:45 | Outpatient (CLI) | payer MEDICARE, OTHER, SELFPAY | END 2020-06-24 14:46 | disposition home or self-care (01) | LOC: WOUND 14:46 | PROVIDERS: PCP Internal Medicine; Visit Provider Nurse Practitioner Family | DX: E11.621 Type 2 diabetes mellitus with foot ulcer (principal); L97.412 Non-pressure chronic ulcer of right heel and midfoot with fat layer exposed | CPT/HCPCS: 11042; 87070; 87176; 87205 ==

== ENCOUNTER 2020-07-01 13:48 | Outpatient (CLI) | payer MEDICARE, OTHER, SELFPAY | END 2020-07-01 13:49 | disposition home or self-care (01) | LOC: WOUND 13:50 | PROVIDERS: PCP Internal Medicine; Visit Provider Nurse Practitioner Family | DX: E11.621 Type 2 diabetes mellitus with foot ulcer (principal); L97.412 Non-pressure chronic ulcer of right heel and midfoot with fat layer exposed | CPT/HCPCS: 11042 ==

== ENCOUNTER 2020-07-08 14:38 | Outpatient (CLI) | payer MEDICARE, OTHER, SELFPAY | END 2020-07-08 14:39 | disposition home or self-care (01) | LOC: WOUND 14:40 | PROVIDERS: PCP Internal Medicine; Visit Provider Thoracic Surgery (Cardiothoracic Vascular Surgery) | DX: E11.621 Type 2 diabetes mellitus with foot ulcer (principal); L97.422 Non-pressure chronic ulcer of left heel and midfoot with fat layer exposed | CPT/HCPCS: 11042 ==

== ENCOUNTER 2020-07-15 13:17 | Outpatient (CLI) | payer MEDICARE, OTHER, SELFPAY | END 2020-07-15 13:18 | disposition home or self-care (01) | LOC: WOUND 13:19 | PROVIDERS: PCP Internal Medicine; Visit Provider Thoracic Surgery (Cardiothoracic Vascular Surgery) | DX: E11.621 Type 2 diabetes mellitus with foot ulcer (principal); L97.422 Non-pressure chronic ulcer of left heel and midfoot with fat layer exposed | CPT/HCPCS: 11042 ==

== ENCOUNTER 2020-07-22 13:28 | Outpatient (CLI) | payer MEDICARE, OTHER, SELFPAY | END 2020-07-22 13:29 | disposition home or self-care (01) | LOC: WOUND 13:29 | PROVIDERS: PCP Internal Medicine; Visit Provider Thoracic Surgery (Cardiothoracic Vascular Surgery) | DX: E11.621 Type 2 diabetes mellitus with foot ulcer (principal); L97.422 Non-pressure chronic ulcer of left heel and midfoot with fat layer exposed | CPT/HCPCS: 11042 ==

== ENCOUNTER 2020-07-29 12:54 | Outpatient (CLI) | payer MEDICARE, OTHER, SELFPAY | END 2020-07-29 12:55 | disposition home or self-care (01) | LOC: WOUND 12:55 | PROVIDERS: PCP Internal Medicine; Visit Provider Thoracic Surgery (Cardiothoracic Vascular Surgery) | DX: E11.621 Type 2 diabetes mellitus with foot ulcer (principal); L97.421 Non-pressure chronic ulcer of left heel and midfoot limited to breakdown of skin | CPT/HCPCS: 97597 ==

== ENCOUNTER 2020-08-06 15:30 | Outpatient (CLI) | payer MEDICARE, OTHER, SELFPAY | END 2020-08-06 15:31 | disposition home or self-care (01) | LOC: WOUND 15:37 | PROVIDERS: PCP Internal Medicine; Visit Provider Nurse Practitioner Family | DX: Z09 Encounter for follow-up examination after completed treatment for conditions other than malignant neoplasm (principal) | CPT/HCPCS: 99212 ==

== ENCOUNTER 2020-08-28 12:49 | Outpatient (CLI) | payer MEDICARE, OTHER, SELFPAY ==
[2020-08-28 14:06] LABS: Blood Urea Nitrogen 34 mg/dL (8-23)
== END 2020-08-28 12:50 | disposition home or self-care (01) ==
LOC: RAD 12:53
PROVIDERS: PCP Internal Medicine; Visit Provider Internal Medicine Cardiovascular Disease
DX: Z01.89 Encounter for other specified special examinations (principal)
CPT/HCPCS: 36415; 82565; 84520

== ENCOUNTER → 2020-09-05 12:59 | Outpatient (BNVA) | payer MEDICARE, OTHER, SELFPAY | PROVIDERS: PCP Internal Medicine; Visit Provider Internal Medicine Cardiovascular Disease | DX: Z20.822 Contact with and (suspected) exposure to COVID-19 (principal); L97.929 Non-pressure chronic ulcer of unspecified part of left lower leg with unspecified severity | CPT/HCPCS: 80048; 85025; 85610; 87635 ==

== ENCOUNTER 2020-09-11 16:59 | Inpatient (IN) | payer MEDICARE, OTHER, SELFPAY ==
[2020-09-11 18:02] VITALS: BMI 26.1
--- NOTE | 2020-09-11 18:37 | P.HP_ITS ---
Providers/Chief Complaint Admitting Physician: Tabitha Stanton MD Primary Care Provider: Malik Nicolas MD Chief Complaint: Peripheral Diagnostic History of Present Illness Gia Clement is a 69 year old female past medical history significant uncontrolled diabetes mellitus hypertension hyperlipidemia history of smoking with worsening of cramps pain fatigue of the leg Jose's-like phenomena in both hands with purplish coloration and diminished pulses with supranormal ODILIA and nonhealing ulcer on the left foot she is here for admission for IV fluid before proceeding with peripheral angiogram. We were not able to do CT scan due to contrast. Patient baseline creatinine is around 2.5-3.0. We will IV hydrate her before proceeding with peripheral angiogram tomorrow. Patient has been explained detail all risk benefit and alternative for the procedure she has been explained the risk for 2024% contrast-induced nephropathy leading to transient or permanent dialysis. She understand the risk for thromboemboli exertion leading to urgent emergent vascular surgery and worse case scenario amputation. He has been consented for possibility of blood transfusion in case of bleeding which could be major minor. Patient agreed to it and would like to proceed with peripheral angiogram for critical limb ischemia and nonhealing ulcers. Review of Systems Psych: Denies: sleeping more Medications/Allergies Home Medications Medication Instructions Recorded Confirmed Last Taken Type amlodipine 5 mg PO DAILY 09/11/20 09/11/20 09/11/20 08:00 History aripiprazole 5 mg PO DAILY 09/11/20 09/11/20 Unknown History atenolol 25 mg PO DAILY 09/11/20 09/11/20 09/11/20 08:00 History celecoxib [Celebrex] 200 mg PO BID 09/11/20 09/11/20 Unknown History gabapentin 300 mg PO DAILY 09/11/20 09/11/20 Unknown History levothyroxine 75 mcg PO DAILY 09/11/20 09/11/20 09/11/20 08:00 History losartan-hydrochlorothiazide 1 tab PO DAILY 09/11/20 09/11/20 09/11/20 08:00 History metformin 500 mg PO BID 09/11/20 09/11/20 Unknown History tizanidine 4 mg PO Q6H PRN 09/11/20 09/11/20 09/11/20 08:00 History venlafaxine 150 mg PO DAILY 09/11/20 09/11/20 09/11/20 08:00 History Allergies Allergy/AdvReac Type Severity Reaction Status Date / Time No Known Allergies Allergy Verified 08/15/20 11:32 PFSH Acute PFSH: Medical History (Updated 09/11/20 @ 18:51 by Tabitha Stanton MD) Chronic kidney disease CKD (chronic kidney disease) stage 3, GFR 30-59 ml/min CVA (cerebral vascular accident) Reports this affected her right side, and occurred January 2019. No significant residual. Depression Diabetes mellitus type 2, uncontrolled Dysphagia Essential (primary) hypertension Hypertension Hypothyroidism Intertrochanteric fracture of left hip Multiple sclerosis Neuropathy of both feet Raynauds disease RLS (restless legs syndrome) Surgical History History of back surgery History of colonoscopy History of esophagogastroduodenoscopy (EGD) History of surgery on left wrist History of surgery on right wrist Family History Other Cancer Epilepsy Hypertension Social History Smoking and tobacco status: former smoker Alcohol intake: current Alcohol intake frequency: few times a month History of recent travel: No Vitals/I&O/Wt Weight last 48 hrs Weight 177 lb Physical Exam Narrative: EXAM NARRATIVE: EXAM NARRATIVE: GENERAL: Patient is alert, awake and oriented x3. NECK: No jugular vein distension. HEENT: No cyanosis. No icterus. No pallor. HEART: Regular S1 and S2. No murmur, rub or gallop. LUNGS: Clear to auscultate bilaterally. ABDOMEN: Soft, nontender and nondistended. Positive bowel sounds. No guarding, rebound or tenderness. CENTRAL NERVOUS SYSTEM: Grossly nonfocal. EXTREMITIES: Lower extremities without edema bilaterally. Pulses not palpable in the lower extremities, both dorsalis pedis and posterior tibial. Both feet purplish with nonhealing left foot ulce A&P Assessment and plan (1) Nonhealing ulcer of left lower extremity: Patient has nonhealing ulcer, she has supranormal ODILIA she does not have any pulses she is diabetic, due to underlying renal function could not do CTA. We will proceed with peripheral angiogram and intervention if needed. We will try to use less contrast and we will prehydrate her before that. She has a vascular ultrasound performed which was abnormal Status: Acute Qualifiers: Non-pressure ulcer stage: with fat layer exposed Qualified Code(s): L97.922 - Non-pressure chronic ulcer of unspecified part of left lower leg with fat layer exposed (2) Essential (primary) hypertension: Well-controlled continue medicine Status: Acute (3) Diabetes mellitus type 2, uncontrolled: Will hold oral hypoglycemics and cover with sliding scale insulin. Status: Acute Qualifiers: Coma presence: without coma Glycemic state: with hypoglycemia Qualified Code(s): E11.649 - Type 2 diabetes mellitus with hypoglycemia without coma (4) CKD (chronic kidney disease) stage 3, GFR 30-59 ml/min: We will IV hydrate the patient before peripheral angiogram. Status: Acute Qualifiers: Chronic kidney disease stage 3 subtype: stage 3b (GFR 30-44) Qualified Code(s): N18.32 - Chronic kidney disease, stage 3b Attestations Medical Necessity Statement*: Patient require continuation hospitalization for above defined care. I am expecting her stay to cross more than 2 midnights. Coding Level of Care Code New Pt Acute Trapeze Artist for g Fwd Patient Type New History Detailed Exam Detailed Medical Decision Making Moderate Complexity Diagnoses Nonhealing ulcer of left lower extremity L97.922 Non-pressure ulcer stage: with fat layer exposed Essential (primary) hypertension I10 Diabetes mellitus type 2, uncontrolled E11.649 Coma presence: without coma Glycemic state: with hypoglycemia CKD (chronic kidney disease) stage 3, GFR 30-59 ml/min N18.32 Chronic kidney disease stage 3 subtype: stage 3b (GFR 30-44)
[2020-09-11 19:50] VITALS: BP 145/93; PULSE 85; RESP 16; TEMP 36.6; O2SAT 100
[2020-09-11 20:55] LABS: Glucose Point of Care 176 mg/dL (70-110)
[2020-09-11 21:12] LABS: Basophils # 0.1 10^3/uL (0.0-0.1); Basophils % 0.6 %; Eosinophils # 0.3 10^3/uL (0.0-0.8); Eosinophils % 2.3 %; Hematocrit 34.4 % (37.0-47.0); Hemoglobin 10.6 g/dL (11.5-15.3); Lymphocytes # 2.8 10^3/uL (0.8-4.8); Mean Corpuscular HGB Conc 30.8 g/dL (30.0-36.0); Mean Corpuscular Hemoglobin 30.4 pg (28.0-34.0); Mean Corpuscular Volume 98.6 fL (81-99); Mean Platelet Volume 10.7 fL (7.4-10.4); Monocytes # 0.9 10^3/uL (0.2-0.9); Monocytes % 6.7 %; Neutrophils # 9.23 10^3/uL (1.8-7.7); Neutrophils % 69.2 %; Nucleated Red Blood Cells % 0 %; Platelet Count 271 10^3/cmm (130-400); Red Blood Count 3.49 10^6/uL (4.1-5.3); Red Cell Distribution Width 14.6 % (12.1-15.1); White Blood Count 13.3 10^3/uL (4.0-10.0)
[2020-09-11] MEDS: sodium chloride 0.9% 1,000 ML 100 ML IV (21:23)
[2020-09-11] MEDS: tizanidine 4 mg Tablet PO (21:31)
[2020-09-11 21:53] LABS: Anion Gap 18.8 (5-19); Blood Urea Nitrogen 26 mg/dL (8-23); Carbon Dioxide 22 mmol/L (22-29); Chloride 99 mmol/L (98-107); Glucose 194 mg/dL (65-115); Osmolality Calculated 290 mOsm/kg (285-295); Potassium 4.8 mmol/L (3.5-5.1); Sodium 135 mmol/L (136-145)
[2020-09-11 23:30] VITALS: BP 120/73; PULSE 85; RESP 16; TEMP 36.5; O2SAT 99
[2020-09-12] VITALS (18 sets, daily range): BP systolic 129–169; BP diastolic 84–99; PULSE 73–107; RESP 12–19; TEMP 36.8–37.3; O2SAT 95–100
[2020-09-12 03:34] LABS: Basophils # 0.1 10^3/uL (0.0-0.1); Basophils % 0.5 %; Eosinophils # 0.3 10^3/uL (0.0-0.8); Eosinophils % 3.1 %; Hematocrit 29.8 % (37.0-47.0); Hemoglobin 9.5 g/dL (11.5-15.3); Lymphocytes # 3.1 10^3/uL (0.8-4.8); Lymphocytes % 30.1 %; Mean Corpuscular HGB Conc 31.9 g/dL (30.0-36.0); Mean Corpuscular Hemoglobin 30.4 pg (28.0-34.0); Mean Corpuscular Volume 95.2 fL (81-99); Mean Platelet Volume 10.9 fL (7.4-10.4); Monocytes # 0.7 10^3/uL (0.2-0.9); Monocytes % 7.3 %; Neutrophils # 5.99 10^3/uL (1.8-7.7); Neutrophils % 58.9 %; Nucleated Red Blood Cells % 0 %; Platelet Count 254 10^3/cmm (130-400); Red Blood Count 3.13 10^6/uL (4.1-5.3); Red Cell Distribution Width 14.5 % (12.1-15.1); White Blood Count 10.2 10^3/uL (4.0-10.0)
[2020-09-12 03:52] LABS: Blood Urea Nitrogen 26 mg/dL (8-23); Calcium 8.6 mg/dL (8.5-10.5); Carbon Dioxide 24 mmol/L (22-29); Chloride 101 mmol/L (98-107); Glucose 167 mg/dL (65-115); Osmolality Calculated 291 mOsm/kg (285-295); Sodium 136 mmol/L (136-145)
[2020-09-12] MEDS: sodium chloride 0.9% 1,000 ML 50 ML IV (06:26)
[2020-09-12] MEDS: sodium chloride 0.9% 1,000 ML 100 ML IV (06:30)
[2020-09-12 06:37] LABS: Glucose Point of Care 135 mg/dL (70-110)
--- NOTE | 2020-09-12 07:30 | XACV_ITS ---
Ht: 175 cm Wt: 80 kg BSA: 1.99 m2 Any Known Allergies: No known allergies Gender: Female : 1950 Exam Type: Invasive Peripheral Vascular Procedure(s): Procedure Description: Peripheral Cath Diagnostic Procedure Procedure Description: Abdominal aortic angiography Procedure Description: Lower extremities' angiography Exam Priority: Routine Conclusions Reason for peripheral angiogram: Lifestyle limiting claudication abnormal noninvasive test.Bilateral common iliac normal, bilateral external and internal iliac normal, bilateral common femoral artery is normal, bilateral profundofemoral is normal, bilaterally SFA normal, bilaterally popliteal artery, right tibioperoneal trunk normal, left tibioperoneal trunk aneurysm noted, bilateral three-vessel runoff noted. Left and right anterior, posterior tibial and peroneal arteries showed no significant stenosis.. Recommendations Will refer to vascular surgery for left tibioperoneal aneurysm. Otherwise usual post-cath care.. Hemodynamic Data Phase:Rest AO : 136.0 / 66.0 ( 96.0 ) @ 10:05:00 AM 159.0 / 79.0 ( 110.0 ) @ 10:17:00 AM Access Site Site: Right Femoral artery Sheath Size: 6 Fr Hemost... Method: Manual Compression Hemost... Success: Successful Procedure Details Findings Pre-Procedure Time Out. Identified patient by full name and date of as verbalized by the patient/guarantor. Does the consent match the physician's order: Yes. Accurate & Complete Informed Consent: Yes. Inpatient/Outpatient History & Physical on Chart: Yes. If H&P is completed, is and addenduem needed: No; If yes, is the addendum complete: N/A. Visualize and Verify Site with Patient/Guarantor: N/A. Relevant Radiology Images available: N/A. Pre-op teaching completed and patient verbalized understanding. The risks, benefits, and alternatives of sedation and/or procedure were discussed by physician. The patient agrees to continue. Procedure started. Correct patient, site and procedure confirmed by cath team. PERRLA. Strong, equal hand fieldwork coordinator bilaterally. Lungs clear x 5 lobes. IV Site on Arrival: 20 gauge in the left anticubital. IV Fluids: 0.9% NaCl at KVO. 0 mL infused prior to computer laboratory technician. Pre Procedural Pulses: bilateral dorsalis pedis was Doppled. Pre Procedural Pulses: bilateral posterior tibial was Doppled. Oxygen started at 2liters/min via nasal canula. Physician arrived. bilateral groins was prepped with chloroprep then draped in the usual sterile fashion. Baseline sample Acquired. HR: 126 BPM. Equipment: Peripheral. Cardiac Cath Pack. ACIST Manifold Kit Model BT 2000. Heparinized Saline (2 units/mL), 1000 mL bag. Inventory is JJ 6F 11cm Surekha Plus Sheath. Hemodynamic formulas in Rest were re-calculated based on hemoglobin value from 09/12/2020 3:17:00 AM. Physician scrubbed in. Immediate Pre-Procedure Time Out. Correct Patient: Yes; Correct Procedure: Yes; Correct Site: Yes; Correct Patient Position: Yes; Correct Supplies: Yes; Dried Flammable Prep: Yes; Blood Products Available: N/A;. Lidocaine 1% infiltrated to the right groin. Arterial access obtained with micropuncture set. A CORDIS 5F UF catheter 65cm was advanced over the wire and used for Abdominal aortogram with runoff. Abdominal aortogram performed in AP @ 10 mL/sec for a total of 30 mL. Glidewire inserted. Catheter removed over the glide wire. SEEKER support catheter inserted over glidewire. Seeker seated below knee. Glidewire out. Hand injection below knee. Below knee runoff. Seeker out over glidewire. Right leg runoff 10 ml for total of 30 ml. Physician scrubbed out. A Manual Compression was successful obtaining hemostatsis at the Right Femoral artery insertion site. Sheath(s) removed and manual pressure held until hemostasis was achieved. Sterile 4x4 and Op-site applied to the puncture site. No oozing or hematoma noted. Post sheath removal instructions were given and the patient verbalized understanding. Post Procedure: Pulses reassessed and unchanged. PERRLA. Strong, equal hand fieldwork coordinator bilaterally. No VTE prophylaxis required. Medication's Wasted: Heparin = 1000 units. Medication's Wasted: Other = versed 1 mg. Medication's Wasted: Other = fentanyl 75 mg. Total IV fluids: 45 mL. Contrast type used: Visipaque 320 mgI/mL, 500 mL bottle. Post-op diagnosis: non obstructive PAD, aneurysm left tibial peroneal trunk. Complications: none. Estimated blood loss: 5mL-10mL. Procedure completed. Patient transferred by bed to ICU. Vital chart was stopped. Procedure Medications Start: 10:49 AM Stop: 10:49 AM Medication: Versed Amount: 1 mg Route: I.V. Start: 10:49 AM Stop: 10:49 AM Medication: Fentanyl Amount: 50 mcg Route: I.V. Start: 10:59 AM Stop: 10:59 AM Medication: Versed Amount: 1 mg Route: I.V. Start: 10:59 AM Stop: 10:59 AM Medication: Fentanyl Amount: 50 mcg Route: I.V. Start: 11:01 AM Stop: 11:01 AM Medication: 0.9% Saline Amount: 100 ml/hr Route: I.V. drip Start: 11:17 AM Stop: 11:17 AM Medication: Versed Amount: 1 mg Route: I.V. Start: 11:17 AM Stop: 11:17 AM Medication: Fentanyl Amount: 25 mcg Route: I.V. I, the attending physician, have reviewed and verified all procedure medications. Yes, all medications given per verbal order History/Risk Factors Hypertension: Yes Dyslipidemia: No Peripheral Arterial Disease (PAD): Yes Obesity: No Renal Disease: No Tobacco Use: Former Prior Interventions PCI: No CABG: No Valve Surgery: No Report Signatures Finalized by Tabitha Stanton MD on 09/25/2020 07:53 PM
[2020-09-12] MEDS: diphenhydrAMINE 50 mg Capsule PO (07:40)
[2020-09-12] MEDS: hydroCHLOROthiazide 25 mg Tablet PO (07:40)
[2020-09-12] MEDS: losartan 50 mg Tablet 100 MG PO (07:40)
[2020-09-12] MEDS: amlodipine 5 mg Tablet PO (07:41)
[2020-09-12] MEDS: atenolol 50 mg Tablet 25 MG PO (07:41)
--- NOTE | 2020-09-12 10:37 | PC.NURSE ---
solder making laborer Pt taken down in wheelchair to solder making laborer. Pt will be transferred to icu 1 afterwards.
--- NOTE | 2020-09-12 11:13 | PC.CHAP ---
Pastoral Care Encounter/Spiritual Assessment Type of Contact [] Declined web marketing analyst visit [] Patient/Family/Request visit [] Outpatient visit [] Follow-up visit [] Physician referral [] Code/Alert [x] Routine visit [] Staff referral [] Actively dying [] Patient sleeping [] Family support [] [] Out of room [] Palliative care [] [x] Receiving care in room [] Pre-surgical visit [] Trauma [x] Long length of stay [] ICU visit [] Other: Relational/Emotional Strength [x] Patient feels connected with others/family/visitors/staff [x] Distress [] Loneliness/isolation [] Abandonment Spirituality of Patient [x] Person of Mary [] Attends Zoroastrianism of their Mary [x] Believes in Prayer [] Reads Bible or Synagogue materials [] There are Spiritual issues to be addressed Weatherization Crew Leader Interventions [x] Prayer [x] Active listening [x] Non-anxious presence [x] Spiritual/emotional support [] Crisis/trauma care [x] Spiritual counseling [] Bereavement support [] Provided bereavement packet [] Provided Bible/devotional materials [] Provided toy/stuffed animal, coloring book to patient or family member [] Provided Communion [] Anointing/Pillow [] Salvation [x] Completed spiritual assessment [] Other: Impact on Illness or Injury [] Angry [x] Fearful [] Anxious [] Often cries [] Exhaustion [x] Unable to work [] Unable to attend alevism [] Unable to walk/stand [] Unable to read [] Unable to drive [] Unable to eat/drink [] Unable to sleep [] Unable to be with family [] Patient intubated [] Other: Summary has had tests doen't know about tests waiting doctors report waiting on a CT scan has a good attitude going home soon Time spent with patient 10 mins
[2020-09-12 12:48] LABS: Glucose Point of Care 152 mg/dL (70-110)
[2020-09-12 18:21] LABS: Glucose Point of Care 125 mg/dL (70-110)
--- NOTE | 2020-09-12 19:00 | PC.NURSE ---
Approx 7 hrs after sheath removal. Pt ambulated in hallway at this time with walker at this time, gait slow and steady. Ambulated in unit about 150 feet, duration of activity about 15 minutes. Site asymptomatic. Pt placed up in chair for dinner at this time.
--- NOTE | 2020-09-12 19:41 | PC.NURSE ---
Discharge Discharge instructions given to patient at this time. Educated on signs of symptoms to call 911, educated on bleeding, swelling, abnormal sensation to extremity .Pt verbalized understanding, no questions at this time. Puncture to right groin clean dry and asymptomatic. Dressing dry and intact. Pt belongings and discharge paperwork sent with patient at this time. Pt escorted to front door via wheelchair.
--- NOTE | 2020-10-02 18:36 | P.DS_ITS ---
Discharge Providers Date of Admission: 09/11/20 16:59 Date of Discharge: September 12, 2020 Attending Provider at Admission: Tabitha Stanton MD Attending Provider at Discharge: Tabitha Stanton MD Primary Care Provider: Malik Nicolas MD Diagnoses at Discharge Discharge Diagnosis (1) Nonhealing ulcer of left lower extremity: Status: Acute Qualifiers: Non-pressure ulcer stage: with fat layer exposed Qualified Code(s): L97.922 - Non-pressure chronic ulcer of unspecified part of left lower leg with fat layer exposed (2) Essential (primary) hypertension: Status: Acute (3) Diabetes mellitus type 2, uncontrolled: Status: Acute Qualifiers: Glycemic state: with hypoglycemia Coma presence: without coma Qualified Code(s): E11.649 - Type 2 diabetes mellitus with hypoglycemia without coma (4) CKD (chronic kidney disease) stage 3, GFR 30-59 ml/min: Status: Acute Qualifiers: Chronic kidney disease stage 3 subtype: stage 3b (GFR 30-44) Qualified Code(s): N18.32 - Chronic kidney disease, stage 3b Reason for Visit Reason for Visit: Peripheral Diagnostic Hospital Course Hospital Course 69-year-old female past medical history significant for hypertension hyperlipidemia COPD with abnormal noninvasive test highly suggestive of peripheral arterial disease and lifestyle limiting claudication was admitted 24 hours ago for IV hydration before proceeding with peripheral angiogram for underlying chronic kidney disease. She was given IV fluid overnight. This morning underwent peripheral angiogram which did not show any significant peripheral arterial disease. Most likely due to calcified vessel ABIs were abnormal. Patient completed bedrest and being discharged. Follow-up with primary care physician. Physical Exam Narrative: EXAM NARRATIVE: GENERAL: Patient is alert, awake and oriented x3. NECK: No jugular vein distension. HEENT: No cyanosis. No icterus. No pallor. HEART: Regular S1 and S2. No murmur, rub or gallop. LUNGS: Clear to auscultate bilaterally. ABDOMEN: Soft, nontender and nondistended. Positive bowel sounds. No guarding, rebound or tenderness. CENTRAL NERVOUS SYSTEM: Grossly nonfocal. EXTREMITIES: Lower extremities without edema bilaterally. Pulses dopplerable Discharge Data Data Completed and Pending: Completed Studies During Hospitalization Category Date Time Status ERISA ATTORNEY request for service Routin e Exams 09/12/20 07:30 Completed Vitals: Last Vital Signs Temp 99.1 F 09/12/20 19:17 Pulse 106 H 09/12/20 19:17 Resp 17 09/12/20 19:17 BP 134/84 09/12/20 19:17 Pulse Ox 97 09/12/20 19:17 Discharge Plan Discharge Patient Disposition: Home Condition: Stable Prescriptions: Continued levothyroxine 75 mcg Tablet 75 mcg PO DAILY RF: 0 tizanidine 4 mg Tablet 4 mg PO Q6H PRN (Reason: Spasms) RF: 0 losartan-hydrochlorothiazide 100-25 mg Tablet 1 tab PO DAILY RF: 0 metformin 500 mg Tablet 500 mg PO BID RF: 0 atenolol 25 mg Tablet 25 mg PO DAILY RF: 0 gabapentin 300 mg Capsule 300 mg PO DAILY RF: 0 amlodipine 5 mg Tablet 5 mg PO DAILY RF: 0 Celebrex 200 mg Capsule 200 mg PO BID RF: 0 venlafaxine 150 mg Capsule,Extended Release 24hr 150 mg PO DAILY RF: 0 aripiprazole 5 mg Tablet 5 mg PO DAILY RF: 0 Discharge Orders: Discharge Order (Routine); Ordered 09/12/20 Ordered By: Tabitha Stanton Discharge Diet: Diabetic Patient Instructions: Peripheral Vascular Angioplasty (DC), Opioid Safety Activity Restrictions/Additional Instructions: Follow-up with wound care as scheduled. Follow-up with Luisa Roa. Check Chem-7 in 5 days. Discharge Attestations Time Spent in Discharge Care*: less than 30 min Quality Metrics Clinical Quality Measures During this hospital stay, did patient experience: None Coding Level of Care Code Established Pt Acute Chg FW DC note Patient Type Established History Expanded Problem Focused Exam Expanded Problem Focused Medical Decision Making Moderate Complexity Diagnoses Nonhealing ulcer of left lower extremity L97.922 Non-pressure ulcer stage: with fat layer exposed Essential (primary) hypertension I10 Diabetes mellitus type 2, uncontrolled E11.649 Glycemic state: with hypoglycemia Coma presence: without coma CKD (chronic kidney disease) stage 3, GFR 30-59 ml/min N18.32 Chronic kidney disease stage 3 subtype: stage 3b (GFR 30-44)
== END 2020-09-12 19:39 | disposition home or self-care (01) | DRG 300 ==
LOC: MEDSURG 22:28 → ICU 09-12 12:02
PROVIDERS: Admitting Provider Internal Medicine Cardiovascular Disease; PCP Internal Medicine; Visit Provider Internal Medicine Cardiovascular Disease
PROC: B41DYZZ Fluoroscopy of Aorta and Bilateral Lower Extremity Arteries using Other Contrast (ICD-10-PCS; principal; 2020-09-12 08:30)
DX: E11.51 Type 2 diabetes mellitus with diabetic peripheral angiopathy without gangrene (principal); L97.922 Non-pressure chronic ulcer of unspecified part of left lower leg with fat layer exposed; E11.65 Type 2 diabetes mellitus with hyperglycemia; E11.22 Type 2 diabetes mellitus with diabetic chronic kidney disease; E11.621 Type 2 diabetes mellitus with foot ulcer; E11.42 Type 2 diabetes mellitus with diabetic polyneuropathy; I12.9 Hypertensive chronic kidney disease with stage 1 through stage 4 chronic kidney disease, or unspecified chronic kidney disease; N18.32 Chronic kidney disease, stage 3b; I72.4 Aneurysm of artery of lower extremity; E78.5 Hyperlipidemia, unspecified; Z87.891 Personal history of nicotine dependence; I73.00 Raynaud's syndrome without gangrene; Z86.73 Personal history of transient ischemic attack (TIA), and cerebral infarction without residual deficits; F32.9 Major depressive disorder, single episode, unspecified; E03.9 Hypothyroidism, unspecified; G35 Multiple sclerosis; G25.81 Restless legs syndrome
CPT/HCPCS: 36415; 36416; 75625; 75716; 80048; 82962; 85025; 96372; C1769; C1887; C1894; J1644; J1815; J2250; J3010; J7030; Q0163; Q9967

== ENCOUNTER → 2020-11-13 16:17 | Outpatient (BNVA) | payer MEDICARE, OTHER, SELFPAY | PROVIDERS: PCP Internal Medicine; Visit Provider Internal Medicine | DX: R63.4 Abnormal weight loss (principal); E11.649 Type 2 diabetes mellitus with hypoglycemia without coma; R53.83 Other fatigue | CPT/HCPCS: 80053; 83550; 84443; 85651 ==

== ENCOUNTER 2022-07-28 16:41 | Inpatient (IN) | payer MEDICARE, OTHER, SELFPAY ==
[2022-07-28] VITALS (8 sets, daily range): BP systolic 114–157; BP diastolic 71–99; PULSE 84–105; RESP 16–92; TEMP 36.4–36.7; O2SAT 94–99; BMI 25.7
--- NOTE | 2022-07-28 18:19 | XRR_ITS ---
PROCEDURE INFORMATION: Exam: XR Chest Exam date and time: 07/28/2022 6:31 PM Age: 71 years old Clinical indication: Other: Weakness TECHNIQUE: Imaging protocol: Radiologic exam of the chest. Views: 1 view. COMPARISON: CR XR chest 1V portable [id number] 02/20/2020 11:11 AM FINDINGS: Lungs: Calcified granuloma in the right lung. The lungs are otherwise clear. No consolidation. Pleural spaces: Unremarkable. No pleural effusion. No pneumothorax. Heart/Mediastinum: Unremarkable. No cardiomegaly. Bones/joints: Old left rib fractures. Severe degenerative changes of the right glenohumeral joint. XR/XR chest 1V portable [id number] IMPRESSION: No acute findings.
--- NOTE | 2022-07-28 18:19 | CTR_ITS ---
PROCEDURE INFORMATION: Exam: CT Head Without Contrast Exam date and time: 07/28/2022 6:42 PM Age: 71 years old Clinical indication: Weakness, extremity; Bilateral TECHNIQUE: Imaging protocol: Computed tomography of the head without contrast. Radiation optimization: All CT scans at this facility use at least one of these dose optimization techniques: automated exposure control; mA and/or kV adjustment per patient size (includes targeted exams where dose is matched to clinical indication); or iterative reconstruction. REPORTING DATA: Count of CT and Cardiac NM exams in prior 12 months: This patient has received 0 known CTs and 0 known cardiac nuclear medicine studies in the 12 months prior to the current study. COMPARISON: CT head wo con* [id number] 10/23/2019 2:38 PM RADIATION DOSE METRICS: Total DLP (mGy-cm): 1085 FINDINGS: Brain: Moderate cortical volume loss. Moderate-severe hypodensities in supratentorial periventricular and subcortical white matter, consistent with microangiopathy. No intracranial hemorrhage. Chronic lacunar infarcts in the right thalamus and genu of the left internal capsule. Stable approximate 1.1 cm calcified meningioma in the superior right posterior fossa. Cerebral ventricles: No ventriculomegaly. Paranasal sinuses: Visualized sinuses are unremarkable. No fluid levels. Mastoid air cells: Visualized mastoid air cells are well aerated. Orbital cavities: Prior cataract surgery. Bones/joints: Unremarkable. No acute fracture. Soft tissues: Unremarkable. Vasculature: No hyperdense artery. CT/CT head wo con* [id number] IMPRESSION: 1. No acute intracranial abnormality.
--- NOTE | 2022-07-28 18:20 | ECG_ITS ---
[facility] Test Date: 2022-07-28 Pat Name: Gia Clement Department: Room: Gender: Female Paralegal Secretary: : 1950 Requested By: Crescencio Jacob Order Number: [id number] Simon MD: Bryon Haywood M.D. Measurements Intervals [place] Rate: 80 P: 28 MO: 186 QRS: -54 QRSD: 93 T: 12 QT: 377 QTc: 437 Interpretive Statements SINUS RHYTHM POSSIBLE LEFT ATRIAL ENLARGEMENT [-0.1mV P-WAVE IN V1/V2] LOW QRS VOLTAGE IN PRECORDIAL LEADS [QRS DEFLECTION < 1.0 mV IN CHEST LEADS] LEFT ANTERIOR FASCICULAR BLOCK [QRS AXIS <= -45, QR IN I, RS IN II] POSSIBLE ANTERIOR MYOCARDIAL INFARCTION , PROBABLY OLD [30 ms Q WAVE IN V3/V4, OR R < 0.2 mV IN V4] INFERIOR MYOCARDIAL INFARCTION , PROBABLY OLD [40+ ms Q WAVE AND/OR ST/T ABNORMALITY IN II/aVF] Compared to ECG 02/20/2020 11:36:56 Left anterior fascicular block now present Myocardial infarct finding now present ST (T wave) deviation no longer present Electronically Signed On 07-29-2022 17:50:06 CDT by Bryon Haywood M.D. [id number]
--- NOTE | 2022-07-28 18:22 | ED_ITS ---
HPI - Neuro Symptoms/Deficit General: Chief Complaint: Neuro Symptoms/Deficit Stated Complaint: Weakness, numbness on left side, Slurred speech Time Seen by Provider: 07/28/22 18:06 Source: patient Mode of arrival: ambulatory Limitations: no limitations History of Present Illness: 71-year-old female states that she has had some left-sided arm numbness along with slurred speech and some difficulty walking since Wednesday her last known well was Wednesday she did have a stroke back in January daughter states that the slurred speech is new she denies any headache she denies any fevers she has no facial droop denies any worsening proving factors. Associated symptoms: Deny chest pain, headache(s), nausea or vomiting Review of Systems Const: Reports: fatigue; Denies: fever(s) or chills Eyes: Denies: blurry vision or eye discomfort ENMT: Denies: throat pain or dental pain Card: Denies: chest pain Resp: Denies: dyspnea GI: Denies: abdominal pain, nausea, vomiting or diarrhea : Denies: dysuria Musc: Denies: neck pain or back pain Skin/Breast: Denies: rash Neuro: Reports: numbness in extremities and Slurred speech present; Denies: headache(s) PFSH ED PFSH: Medical History Chronic kidney disease CKD (chronic kidney disease) stage 3, GFR 30-59 ml/min CVA (cerebral vascular accident) Reports this affected her right side, and occurred January 2019. No sig nificant residual. Depression Diabetes mellitus type 2, uncontrolled Dysphagia Essential (primary) hypertension Hypertension Hypothyroidism Intertrochanteric fracture of left hip Multiple sclerosis Neuropathy of both feet Raynauds disease RLS (restless legs syndrome) Surgical History History of back surgery History of colonoscopy History of esophagogastroduodenoscopy (EGD) History of surgery on left wrist History of surgery on right wrist Family History Other Cancer Epilepsy Hypertension Social History Smoking and tobacco status: former smoker Alcohol intake: current Alcohol intake frequency: few times a month NIH stroke score NIHSS: Level Of Consciousness - 1a: 0 Level Of Consciousness Questions - 1b: Both Correct Level Of Consciousness Commands - 1c: Both Correct Best Gaze - 2: Normal Visual Pride - 3: No Visual Loss Facial Palsy - 4: Normal Motor Arm Right - 5: No Drift Motor Arm Left - 5: No Drift Motor Leg Right - 6: No Drift Motor Leg Left - 6: No Drift Limb Ataxia - 7: Absent Sensory - 8: Mild To Moderate Loss Best Language - 9: Mild/Moderate Aphasia Dysarthia - 10: Mild/Moderate Dysarthia Extinction And Inattention - 11: 0 Score: Total Score: 3 Physical Exam Const: COMMON NORMALS: patient oriented x3 HENMT: COMMON NORMALS: normocephalic and atraumatic HEAD & SCALP: normocephalic and atraumatic Eye: COMMON NORMALS: Equal, round and reactive pupils present and EOMs intact bilaterally PUPIL: Yes Equal, round and reactive pupils present Neck/C-Spine: COMMON NORMALS: full ROM and supple Chest: COMMONS NORMALS: normal inspection of the chest and normal palpation of entire chest wall Resp: COMMON NORMALS: normal respiratory effort, No retractions, No use of accessory muscles and clear to auscultation bilaterally AUSCULTATION: clear t o auscultation bilaterally Cardio: COMMON NORMALS: regular rate, regular rhythm and No murmurs present (Cardio) RATE: regular rate RHYTHM: regular rhythm GI: COMMON NORMALS: Normal to inspection, nondistended, normoactive bowel sounds present, Soft to palpation, non-tender and no masses PALPATION: Yes Soft to palpation Extremity: COMMON NORMALS: normal to inspection and full ROM Neuro: COMMON NORMALS: patient oriented x3 and moves all extremities CRANIAL NERVES: Yes CN normal except as noted SPEECH: abnormal speech Psych: COMMON NORMALS: mental status grossly normal, Normal thought process present and cooperative THOUGHT PROCESS: Normal thought process present Skin: COMMON NORMALS: no rashes or lesions noted and no wounds GENERAL SKIN EXAM: no rashes or lesions noted Course Vital Signs: Vital signs: Vital Signs Temperature 98.0 F 07/28/22 17:50 Pulse Rate 92 07/28/22 19:38 Respiratory Rate 16 07/28/22 19:38 Blood Pressure 157/94 07/28/22 19:38 Pulse Oximetry 95 07/28/22 19:38 Oxygen Delivery Me thod Room Air 07/28/22 19:38 MDM - Neuro Symptoms/Deficit Medical Decision Making Patient presents here with some slurred speech along with weakness CT here was normal her last known well was Wednesday she does have a UTI I believe is likely causing the symptoms spoke to the hospitalist will admit for observation we will start her on IV antibiotics. Medical Records I reviewed the patient's medical records. Lab Data I reviewed the patient's lab results. 07/28/22 19:01 07/28/22 19: Radiology Impressions Chest X-Ray 07/28/22 18:19 IMPRESSION: No acute findings. Head CT 07/28/22 18:19 IMPRESSION: 1. No acute intracranial abnormality. Laboratory Results WBC 8.7 10^3/uL (4.0-10.0) 07/28/22 19: RBC 3.94 10^6/uL (4.1-5.3) L 07/28/22 19: Hgb 11.8 g/dL (11.5-15.3) 07/28/22 19: Hct 37.7 % (37.0-47.0) 07/28/22 19: MCV 95.7 fl (81-99) 07/28/22 19: MCH 29.9 pg (28.0-34.0) 07/28/22 19: MCHC 31.3 g/dL (30.0-36.0) 07/28/22 19: RDW 12.9 % (12.1-15.1) 07/28/22 19: Plt Count 251 10^3/cmm (130-400) 07/28/22 19: MPV 10.8 fL (7.4-10.4) H 07/28/22 19: Neut % (Auto) 56.5 % 07/28/22 19: Lymph % (Auto) 32.0 % 07/28/22 19: Laurens % (Auto) 7.4 % 07/28/22 19: Eos % (Auto) 3.1 % 07/28/22 19: Baso % (Auto) 0.7 % 07/28/22 19: Neut # (Auto) 4.92 10^3/uL (1.8-7.7) 07/28/22 19: Lymph # (Auto) 2.8 10^3/uL (0.8-4.8) 07/28/22 19:01 Laurens # (Auto) 0.6 10^3/uL (0.2-0.9) 07/28/22 19: Eos # (Auto) 0.3 10^3/uL (0.0-0.8) 07/28/22 19:01 Baso # (Auto) 0.1 10^3/uL (0.0-0.1) 07/28/22 19: Nucleated RBC % (auto) 0 % 07/28/22 19: Nucleated RBCs # 0.0 /100WBC 07/28/22 19: PT 13.20 SECONDS (12.1-14.9) 07/28/22 19: INR 0.98 (0.8-1.2) 07/28/22 19: Sodium 142 mmol/L (136-145) 07/28/22 19: Potassium 5.1 mmol/L (3.5-5.1) 07/28/22 19: Chloride 106 mmol/L (98-107) 07/28/22 19: Carbon Dioxide 21 mmol/L (22-29) L 07/28/22 19: Anion Gap 20.1 (5-19) H 07/28/22 19: BUN 18 mg/dL (8-23) 07/28/22 19: Creatinine 1.5 mg/dL (0.5-0.9) H 07/28/22 19: GFR Calculation Not Reportable 07/28/22 19: Glucose 225 mg/dL (65-115) H 07/28/22 19: Calculated Osmolality 303 mOsm/kg (285-295) H 07/28/22 19: Calcium 9.2 mg/dL (8.5-10.5) 07/28/22 19: Total Bilirubin 0.2 mg/dL (0.15-1.2) 07/28/22 19: AST 19 U/L (0-32) 07/28/22 19: ALT 10 U/L (0-33) 07/28/22 19: Alkaline Phosphatase 119 U/L (35-105) H 07/28/22 19: Total Protein 7.1 g/dL (6.6-8.7) 07/28/22 19:01 Albumin 4.3 g/dL (3.5-5.2) 07/28/22 19:01 Globulin 2.8 g/dL (1.3-4.6) 07/28/22 19:01 TSH 2.35 uIU/mL (0.27-4.20) 07/28/22 19:01 Urine Color Yellow (Yellow) 07/28/22 19:15 Urine Appearance Clear (CLEAR) 07/28/22 19:15 Urine pH 5 (5-7) 07/28/22 19:15 Ur Specific Hematite 1.020 (1.005-1.030) 07/28/22 19:15 Urine Protein Neg (Negative) 07/28/22 19:15 Urine Glucose (UA) 2+ (Normal) H 07/28/22 19:15 Urine Ketones Negative (Negative) 07/28/22 19:15 Urine Blood Neg (Negative) 07/28/22 19:15 Urine Nitrate Positive (Negative) H 07/28/22 19:15 Urine Bilirubin Neg (Negative) 07/28/22 19:15 Urine Urobilinogen Neg mg/dL (Negative) 07/28/22 19:15 Ur Leukocyte Esterase Trace (Negative) H 07/28/22 19:15 Urine RBC 0-4 /hpf (0-2) H 07/28/22 19:15 Urine WBC 25-40 /hpf (0-5) H 07/28/22 19:15 Ur Squamous Epith Cells 0-4 /hpf (0-5) H 07/28/22 19:15 Amorphous Sediment Not Reportable 07/28/22 19:15 Urine Bacteria 2+ /hpf (NONE) H 07/28/22 19:15 EKG Data EKG 1: I personally reviewed and interpreted this EKG as follows: EKG interpretation date: 07/28/22 EKG interpretation time: 16:06 Interpretation: sinus tach hr [address] or t wave abnormalities qrs 90 qtc 384 EKG 2: I personally reviewed and interpreted this EKG as follows: EKG interpretation date: 07/28/22 EKG interpretation time: 18:54 Interpretation: nsr hr [address] or t wave abnormalities qrs 93 qtc 413 Discharge Plan Discharge Patient Disposition: Admitted As Inpatient Clinical Impression: Acute cystitis, Slurred speech Condition: Stable Prescriptions: No Action amlodipine 5 mg tablet 5 mg PO DAILY Qty: 90 3RF losartan-hydrochlorothiazide 100-25 mg tablet See Rx Instructions .ROUTE .COMPLEX Qty: 90 3RF Dose Instruction: TAKE 1 TABLET DAILY Rx Instructions: TAKE 1 TABLET DAILY atenolol 25 mg tablet See Rx Instructions .ROUTE .COMPLEX Qty: 90 3RF Dose Instruction: TAKE 1 TABLET DAILY Rx Instructions: TAKE 1 TABLET DAILY celecoxib 200 mg capsule See Rx Instructions .ROUTE .COMPLEX Qty: 180 3RF Dose Instruction: TAKE 1 CAPSULE TWICE A DAY AT 0800, 2100 Rx Instructions: TAKE 1 CAPSULE TWICE A DAY AT 0800, 2100 aripiprazole 5 mg tablet See Rx Instructions .ROUTE .COMPLEX Qty: 90 3RF Dose Instruction: TAKE 1 TABLET DAILY Rx Instructions: TAKE 1 TABLET DAILY glimepiride 2 mg tablet 4 mg PO DAILY Qty: 360 3RF Rx Instructions: pt states she takes 4 mg bid levothyroxine 75 mcg tablet See Rx Instructions .ROUTE .COMPLEX Qty: 90 3RF Dose Instruction: TAKE 1 TABLET DAILY Rx Instructions: TAKE 1 TABLET DAILY venlafaxine 150 mg capsule,extended release 24hr 150 mg PO DAILY Qty: 90 3RF tizanidine 4 mg Tablet 4 mg PO Q6H PRN (Reason: Spasms) gabapentin 300 mg Capsule 300 mg PO DAILY Referrals: Malik Nicolas MD [Primary Care Provider] - Coding Level of Care Code ED [employer] for Kelly Sam
[2022-07-28 19:14] LABS: Basophils # 0.1 10^3/uL (0.0-0.1); Basophils % 0.7 %; Eosinophils # 0.3 10^3/uL (0.0-0.8); Eosinophils % 3.1 %; Hematocrit 37.7 % (37.0-47.0); Hemoglobin 11.8 g/dL (11.5-15.3); Lymphocytes # 2.8 10^3/uL (0.8-4.8); Mean Corpuscular HGB Conc 31.3 g/dL (30.0-36.0); Mean Corpuscular Hemoglobin 29.9 pg (28.0-34.0); Mean Corpuscular Volume 95.7 fl (81-99); Mean Platelet Volume 10.8 fL (7.4-10.4); Monocytes # 0.6 10^3/uL (0.2-0.9); Monocytes % 7.4 %; Neutrophils # 4.92 10^3/uL (1.8-7.7); Neutrophils % 56.5 %; Nucleated Red Blood Cells % 0 %; Platelet Count 251 10^3/cmm (130-400); Red Blood Count 3.94 10^6/uL (4.1-5.3); Red Cell Distribution Width 12.9 % (12.1-15.1); White Blood Count 8.7 10^3/uL (4.0-10.0)
[2022-07-28 19:39] LABS: INR 0.98 (0.8-1.2)
[2022-07-28 19:43] LABS: Add Urine Microscopic? YES; Bilirubin Urine Neg (Negative); Blood Urine Neg (Negative); Glucose Urine UA 2+ (Normal); Ketones Urine Negative (Negative); Leukocyte Esterase Urine Trace (Negative); Nitrate Urine Positive (Negative); Protein Urine Neg (Negative); Urine Appearance Clear (CLEAR); Urine Color Yellow (Yellow); Urobilinogen Urine Neg (Negative); pH Urine 5 (5-7)
[2022-07-28 19:48] LABS: Alanine Aminotransferase 10 U/L (0-33); Albumin Level 4.3 g/dL (3.5-5.2); Alkaline Phosphatase 119 U/L (35-105); Anion Gap 20.1 (5-19); Aspartate Amino Transferase 19 U/L (0-32); Blood Urea Nitrogen 18 mg/dL (8-23); Calcium 9.2 mg/dL (8.5-10.5); Carbon Dioxide 21 mmol/L (22-29); Chloride 106 mmol/L (98-107); Globulin 2.8 g/dL (1.3-4.6); Glucose 225 mg/dL (65-115); Osmolality Calculated 303 mOsm/kg (285-295); Potassium 5.1 mmol/L (3.5-5.1); Sodium 142 mmol/L (136-145); Thyroid Stimulating Hormone 2.35 uIU/mL (0.27-4.20); Total Bilirubin 0.2 mg/dL (0.15-1.2); Total Protein 7.1 g/dL (6.6-8.7)
[2022-07-28 19:53] LABS: Add Urine Culture? Yes; Bacteria Urine 2+ /hpf; RBC Urine 0-4 /hpf (0-2); Squamous Epithelial Cell Urine 0-4 /hpf (0-5); WBC Urine 25-40 /hpf (0-5)
[2022-07-28] MEDS: cefTRIAXone 1,000 MG in sodium chloride 0.9% (plus) 50 ML 100 MG IV (19:56)
--- NOTE | 2022-07-28 23:09 | USCV_ITS ---
Gia Clement Age: 71 Gender: F : 1950 Exam Date: 07/28/2022 03:00 Ordering Phys: Aleida Doss MD Technologist: KEYLA Exam Location: [facility] [place] Indication: LEFT hemiparesis, slurred speech. No history of cardiac intervention per patient. BP: 136 / 87 HR: 101 Rhythm: Atrial fibrillation Technical Quality: Adequate MEASUREMENTS (Male / Female) Normal Values 2D ECHO LV Diastolic Diameter PLAX 3.6 cm 4.2 - 5.9 / 3.9 - 5.3 cm LV Systolic Diameter PLAX 2.6 cm IVS Diastolic Thickness 1.1 cm 0.6 - 1.0 / 0.6 - 0.9 cm IVS Systolic Thickness 1.6 cm LVPW Diastolic Thickness 1.0 cm 0.6 - 1.0 / 0.6 - 0.9 cm LVPW Systolic Thickness 1.4 cm LVOT Diameter 1.9 cm LV Ejection Fraction 2D Teich 54.9 % LV Ejection Fraction MOD 2C 62.6 % LV Ejection Fraction 2C AL 63.7 % LA Diameter 2.7 cm LA Width 3.2 cm LA Height 4.7 cm RA Width 2.5 cm RA Height 3.9 cm Aorta at Sinotubular Diameter 2.5 cm IVC Diameter 1.4 cm M-MODE Aortic Annulus Diameter 2.7 cm LA Ao Ratio MM 0.9 MV E Point Septal Separation 0.4 cm DOPPLER AV Peak Velocity 77.0 cm/s LVOT Peak Velocity 71.0 cm/s AV Area Cont Eq vti 2.6 cm squared AV Area Cont Eq pk 2.6 cm squared MV Area PHT 6.7 cm squared MV E' Velocity 70.5 cm/s Mitral E to MV E' Ratio 17.6 Mitral E to LV E' Lateral Ratio 19.9 Mitral E to LV E' Septal Ratio 15.9 TV Peak E Velocity 95.0 cm/s PV Peak Velocity 90.0 cm/s RV Acceleration Time 0.1 s RV Ejection Time 0.3 s RV AcT/ET 0.3 FINDINGS Left Ventricle Left ventricle is normal in size. LV systolic function is normal with EF of 55 to 60%. No regional wall motion abnormalities are seen. Right Ventricle Normal in size and function Right Atrium Normal in size Left Atrium Normal in size Mitral Valve Mild to moderate mitral annular calcification is seen. Aortic Valve Grossly normal. No significant stenosis or regurgitation is seen. Tricuspid Valve Trace tricuspid regurgitation. Insufficient TR jet to calculate RVSP. Pulmonic Valve Trace pulmonic regurgitation. Pericardium Normal Aorta Ascending aorta is mildly dilated with diameter of 3.61 cm. IVC Appears to be normal CONCLUSIONS Technically limited quality echocardiogram because of poor ultrasonic windows. LV systolic function is normal with EF 55 to 60%. Trace tricuspid regurgitation Trace pulmonic regurgitation Ascending aorta is mildly dilated. No comparison studies are available. Bryon Haywood MD (Electronically Signed) Final Date: 07 Aug 2022 15:56 S
--- NOTE | 2022-07-28 23:28 | P.HP_ITS ---
Providers/Chief Complaint Admitting Physician: Aleida Doss MD Primary Care Provider: Malik Nicolas MD Chief Complaint: Weakness, numbness on left side, Slurred speech History of Present Illness Gia Clement is a 71 year old female with a past medical history of hypertension, CVA with residual slurred speech, ambulates at baseline with her walker, presented to the emergency room today with symptoms that started on Wednesday (today is Wednesday night). Patient was in her usual state of health until Wednesday when she started experiencing left arm weakness. 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 Also her family has noticed that she is dragging her left foot along with her walker which is new for her. Her speech seems to be slightly more slurred than usual. Patient also feels that her left arm is colder and heavier compared to the right side which is a new sensation for her. No recent trauma or falls. No history of chest p ain dyspnea palpitations syncope. No fever. No complaints of dysuria. Review of Systems General: Reports: 10 or more systems reviewed and unremarkable except in HPI and below Const: Denies: fever(s), chills or body aches Eyes: Denies: change in vision, blurry vision or photophobia ENMT: Reports: hoarseness; Denies: throat pain, enlarged tonsils, odynophagia or nasal congestion Card: Denies: chest pain, palpitations, irregular heart rhythm, edema, swelling of feet/ankles, lightheadedness, pre-syncope, dyspnea on exertion or orthopnea Resp: Denies: dyspnea, productive cough, non-productive cough, wheezing, stridor, pain on inspiration, change in phlegm color, hemoptysis or chest congestion GI: Denies: abdominal pain, nausea, vomiting, hematemesis, coffee ground emesis, dysphagia, heartburn, diarrhea, constipation, GI cramping, change in stool character, hematochezia or melena : Denies: flank pain, difficulty voiding, dysuria, urinary frequency, urinary urgency, urinary hesitancy or hematuria Musc: Denies: neck pain, back pain, extremity pain, joint swelling, joint warmth or deformity Neuro: Denies: headache(s), numbness in extremities, weakness in extremities, sensory changes, difficulty walking, frequent falls, dizziness, vertigo, behavioral changes, Slurred speech present or seizure-like activity Psych: Denies: anxiety, depression, suicidal ideation or homicidal ideation Endo: Denies: polyuria, polydipsia, tired all the time, cold intolerance or hot flashes Qamar/Lymph: Denies: easy bruising or easy bleeding Medications/Allergies Home Medications Medication Instructions Recorded Confirmed Last Taken Type gabapentin 300 mg capsule 300 mg PO DAILY 09/11/20 12/16/20 Unknown History tizanidine 4 mg tablet 4 mg PO Q6H PRN Spasms 09/11/20 12/16/20 09/11/20 08:00 History amlodipine 5 mg tablet 5 mg PO DAILY #90 tabs 04/09/21 Unknown Rx losartan 100 See Rx Instructions .Route 05/09/21 Unknown Rx mg-hydrochlorothiazide 25 mg tablet .COMPLEX #90 tabs atenolol 25 mg tablet See Rx Instructions .Route 06/18/21 Unknown Rx .COMPLEX #90 tabs celecoxib 200 mg capsule See Rx Instructions .Route 06/30/21 Unknown Rx .COMPLEX #180 caps aripiprazole 5 mg tablet See Rx Instructions .Route 09/12/21 Unknown Rx .COMPLEX #90 tabs glimepiride 2 mg tablet 4 mg PO DAILY #360 tabs 09/16/21 Unknown Rx levothyroxine 75 mcg tablet See Rx Instructions .Route 10/09/21 Unknown Rx .COMPLEX #90 tabs venlafaxine 150 mg 150 mg PO DAILY #90 caps 01/28/22 Unknown Rx capsule,extended release 24 hr Allergies Allergy/AdvReac Type Severity Reaction Status Date / Time No Known Allergies Allergy Verified 12/16/20 13:58 PFSH Acute PFSH: Medical History (Updated 07/29/22 @ 05:07 by Aleida Doss MD) Chronic kidney disease CKD (chronic kidney disease) stage 3, GFR 30-59 ml/min CVA (cerebral vascular accident) Depression Diabetes mellitus type 2, uncontrolled Dysphagia Essential (primary) hypertension Hypertension Hypothyroidism Intertrochanteric fracture of left hip Multiple sclerosis Neuropathy of both feet Raynauds disease RLS (restless legs syndrome) Surgical History History of back surgery History of colonoscopy History of esophagogastroduodenoscopy (EGD) History of surgery on left wrist History of surgery on right wrist Family History Other Cancer Epilepsy Hypertension Social History Smoking and tobacco status: former smoker Alcohol intake: current Alcohol intake frequency: few times a month Vitals/I&O/Wt Last Vital Signs Temp 97.5 F L 07/28/22 22:15 Pulse 105 H 07/28/22 22:15 Resp 17 07/28/22 22:15 BP 136/87 07/28/22 22:15 Pulse Ox 96 07/28/22 22:15 O2 Del Method Room Air 07/28/22 22:15 07/28/22 07/28/22 07/29/22 14:59 22:59 06:59 Intake Total 50 / 50 Balance 50 / 50 Weight last 48 hrs Weight 78.925 kg Physical Exam Narrative: General: No acute distress, AO x3 HEENT: PERRLA, pupils bilaterally equal and reactive, pallors not present Chest: Normal vesicular breath sounds, no added sounds, equal good air entry bilaterally CVS: S1-S2 regular, no murmurs, no tachycardia, no gallops, no rubs Abdomen: Soft, nontender, no organomegaly, bowel sounds present Neuro: Speech is slurred, tends to become increasingly discolored as patient continues to hold a conversation. 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 Able to lift both extremities off the bed. No drift noted. Bilateral lower extremity power 4 out of 5, left lower extremity with slight drift when compared to the right side. Data 07/29/22 04:10 07/28/22 19:01 A&P Assessment and plan (1) CVA (cerebral vascular accident): Presented today with left-sided weakness affecting her arms and legs. Patient has baseline slurred speech since her stroke 2 years ago, this is slightly worse. Per review of past notes it appears her previous stroke was with predominant right-sided symptoms Symptom onset was about 48 hours ago NIH stroke scale 3 Not a candidate for tPA or thrombectomy given symptoms started over 48 hours ago. Do not appear to be worsening at this point. CT head without any acute intracranial abnormality. Will check MRI Echocardiogram Carotid Doppler Telemetry monitoring Allow for permissive hypertension, holding home doses of antihypertensives. PT OT speech therapy assessments (2) UTI (urinary tract infection): UA with trace leukocyte esterase, elevated WBCs and bacteriuria. Ceftriaxone 1 g IV started empirically, follow urine culture Attestations 2 Medical Necessity Statement*: Anticipate greater than 2 midnight admission for management of CVA, therapy assessments, IV antibiotics for UTI Coding Level of Care Code Acute Code for Chg Fwd Moderate MDM includes number and complexity of problems actively addressed during encounter, amount and/or complexity of data reviewed/ordered and described risk of complication, morbidity or mortality of management as documented Diagnoses CVA (cerebral vascular accident) I63.9 UTI (urinary tract infection) N39.0
[2022-07-28] MEDS: pneumococcal (23 valent) SDV 0.5 mL IM (23:40)
[2022-07-29] VITALS (9 sets, daily range): BP systolic 120–155; BP diastolic 74–93; PULSE 97–122; RESP 16–18; TEMP 36.5–36.8; O2SAT 96–98
[2022-07-29 04:45] LABS: Basophils # 0.1 10^3/uL (0.0-0.1); Eosinophils # 0.2 10^3/uL (0.0-0.8); Eosinophils % 2.9 %; Hemoglobin 10.9 g/dL (11.5-15.3); Lymphocytes # 2.6 10^3/uL (0.8-4.8); Lymphocytes % 31.2 %; Mean Corpuscular HGB Conc 32.1 g/dL (30.0-36.0); Mean Corpuscular Hemoglobin 29.9 pg (28.0-34.0); Mean Corpuscular Volume 93.2 fl (81-99); Mean Platelet Volume 11.2 fL (7.4-10.4); Monocytes # 0.7 10^3/uL (0.2-0.9); Monocytes % 7.8 %; Nucleated Red Blood Cells % 0 %; Platelet Count 270 10^3/cmm (130-400); Red Blood Count 3.65 10^6/uL (4.1-5.3); Red Cell Distribution Width 12.8 % (12.1-15.1); White Blood Count 8.4 10^3/uL (4.0-10.0)
[2022-07-29 05:13] LABS: Alanine Aminotransferase 8 U/L (0-33); Albumin Level 3.6 g/dL (3.5-5.2); Alkaline Phosphatase 113 U/L (35-105); Anion Gap 17.3 (5-19); Aspartate Amino Transferase 14 U/L (0-32); Blood Urea Nitrogen 14 mg/dL (8-23); Calcium 9.2 mg/dL (8.5-10.5); Carbon Dioxide 21 mmol/L (22-29); Chloride 104 mmol/L (98-107); Chol HDL Ratio 6.32 mg/dL (0.0-4.40); Cholesterol 240 mg/dL (0-200); Globulin 2.7 g/dL (1.3-4.6); Glucose 224 mg/dL (65-115); HDL Cholesterol 38 mg/dL (60-100); LDL Cholesterol Calculated 137 mg/dL (50-129); LDL HDL Ratio 3.61 RATIO (0.00-3.22); Osmolality Calculated 293 mOsm/kg (285-295); Potassium 4.3 mmol/L (3.5-5.1); Sodium 138 mmol/L (136-145); Total Bilirubin 0.2 mg/dL (0.15-1.2); Total Protein 6.3 g/dL (6.6-8.7); Triglycerides 325 mg/dL (0-150)
[2022-07-29 05:18] LABS: Estmated Average Glucose 209; Hemoglobin A1C 8.9 % (4.0-6.0)
[2022-07-29 06:45] LABS: Glucose Point of Care 218 mg/dL (70-110)
[2022-07-29] MEDS: aspirin 81 mg EC Tablet PO (10:55)
[2022-07-29] MEDS: clopidogrel 75 mg Tablet PO (10:55)
[2022-07-29 11:55] LABS: Glucose Point of Care 274 mg/dL (70-110)
[2022-07-29] MEDS: insulin lispro 100 unit/1 mL SUBCUT ×2 (14:00→21:39)
--- NOTE | 2022-07-29 16:44 | PM.PN ---
Subjective Subjective: Patient was seen this morning, she is sitting up in a chair, she denies any weakness this morning, she tells me that she chronically has slurring of her words, no fevers, no chills, no cough, she is alert to person, to place, not to time, she does follow commands, denies any choking, no coughing Vitals/I&O/Wt Last Vital Signs Temp 98.0 F 07/29/22 15:00 Pulse 117 H 07/29/22 15:00 Resp 16 07/29/22 15:00 BP 136/81 07/29/22 15:00 Pulse Ox 98 07/29/22 15:00 O2 Del Method Room Air 07/29/22 15:00 Weight last 48 hrs Weight 78.925 kg Physical Exam Const: COMMON NORMALS: no acute distress Resp: COMMON NORMALS: normal respiratory effort, No retractions, No use of accessory muscles and clear to auscultation bilaterally AUSCULTATION: clear to auscultation bilaterally Cardio: COMMON NORMALS: regular rate, regular rhythm, S1 normal heart sound present and S2 normal heart sound present RATE: regular rate RHYTHM: regular rhythm HEART SOUNDS: S1 normal heart sound present and S2 normal heart sound present GI: COMMON NORMALS: Normal to inspection, nondistended, normoactive bowel sounds present and non-tender Extremity: COMMON NORMALS: no pedal edema Neuro: COMMON NORMALS: CN's II-XII intact bilaterally, moves all extremities and no focal motor deficits OTHER: No facial droop noticed by me, does have slurring of her words Psych: COMMON NORMALS: mental status grossly normal Data 07/29/22 04:10 07/29/22 04:10 A&P Assessment and plan (1) CVA (cerebral vascular accident): Presented today with left-sided weakness affecting her arms and legs. Patient has baseline slurred speech since her stroke 2 years ago, this is slightly worse. Per review of past notes it appears her previous stroke was with predominant right-sided symptoms Symptom onset was about 48 hours ago NIH stroke scale 3 Not a candidate for tPA or thrombectomy given symptoms started over 48 hours ago. Do not appear to be worsening at this point. CT head without any acute intracranial abnormality. Will check MRI Continue aspirin, Plavix, statin Gentle IV dehydration Neurochecks, NIH stroke scale, aspiration precautions Echocardiogram Carotid Doppler Telemetry monitoring Allow for permissive hypertension, holding home doses of antihypertensives. PT OT speech therapy assessments (2) UTI (urinary tract infection): UA with trace leukocyte esterase, elevated WBCs and bacteriuria. Ceftriaxone 1 g IV started empirically, follow urine culture (3) CKD (chronic kidney disease) stage 3, GFR 30-59 ml/min: Qualifiers: Chronic kidney disease stage 3 subtype: stage 3b (GFR 30-44) Qualified Code(s): N18.32 - Chronic kidney disease, stage 3b (4) Essential (primary) hypertension: (5) Diabetes mellitus type 2, uncontrolled: Qualifiers: Glycemic state: with hypoglycemia Coma presence: without coma Qualified Code(s): E11.649 - Type 2 diabetes mellitus with hypoglycemia without coma (6) Hyperlipidemia: Plan Type 2 diabetes mellitus, low-dose sliding scale Hypertriglyceridemia, statin CKD, creatinine 1.4 stable Spoke to nurse, reviewed blood work, reviewed images Attestations Medical Necessity Statement*: Patient requires hospitalization, for CVA, UTI, Diagnoses CVA (cerebral vascular accident) I63.9 UTI (urinary tract infection) N39.0 CKD (chronic kidney disease) stage 3, GFR 30-59 ml/min N18.32 Chronic kidney disease stage 3 subtype: stage 3b (GFR 30-44) Essential (primary) hypertension I10 Diabetes mellitus type 2, uncontrolled E11.649 Glycemic state: with hypoglycemia Coma presence: without coma Hyperlipidemia E78.5
[2022-07-29 17:04] LABS: Glucose Point of Care 138 mg/dL (70-110)
[2022-07-29] MEDS: atorvastatin 40 mg Tablet PO (20:46)
[2022-07-29] MEDS: cefTRIAXone 1,000 MG in sodium chloride 0.9% (plus) 50 ML 100 MG IV (20:46)
[2022-07-29 20:59] LABS: Glucose Point of Care 232 mg/dL (70-110)
--- NOTE | 2022-07-29 23:09 | USCV_ITS ---
Gia Clement Age: 71 Gender: F : 1950 Exam Date: 07/29/2022 02:36 Ordering Phys: Aleida Doss MD Technologist: KEYLA Exam Location: [facility] [place] Indication: LEFT hemiparesis, slurred speech. DM2, Never smoked. Risk Factors: LEFT hemiparesis, slurred speech. DM2, Never smoked. Previous Vascular Surgery: None Right Brachial BP: 136 / 87 Left Brachial BP: / Right Left Velocity (cm/s) Spectral Plaque Velocity (cm/s) Spectral Plaque Syst/Diast Broadening Syst/Diast Broadening 81.60/ 15.40 None None Prox CCA 67.70 / 13.10 None None 48.00/ 12.50 Min Homo Mid CCA 47.30 / 17.10 Min Homo 52.60/ 12.50 Min Homo Distal CCA 58.50 / 18.40 Min Homo 26.00/ 10.90 Min Hetro Prox ICA 29.10 / 12.80 Min Hetro 47.80/ 18.30 Min Homo Mid ICA 51.70 / 17.90 Min Homo 44.40/ 16.20 Min Homo Distal ICA 58.70 / 23.00 Min 47.00 Min Homo ECA 69.70 Min Homo 0.59 ICA/CCA 0.87 Antegrade Vertebral Antegrade 24.80/ 7.70 cm/s 32.90/ 11.80 cm/s Tri Subclavian Tri 41.00 67.70 CONCLUSIONS Right ICA stenosis <50%. Mild atheromatous plaque right carotid bulb/ICA. Left ICA stenosis <50%. Mild atheromatous plaque left carotid bulb/ICA. Normal antegrade Doppler flow noted in the right vertebral artery. Normal antegrade Doppler flow noted in the left vertebral artery. Moe Gomez MD (Electronically Signed) Final Date: 03 Aug 2022 08:52 S
[2022-07-30 03:55] VITALS: BP 134/77; PULSE 122; RESP 16; TEMP 36.7; O2SAT 97
[2022-07-30 05:17] LABS: Basophils # 0.1 10^3/uL (0.0-0.1); Basophils % 0.8 %; Eosinophils # 0.2 10^3/uL (0.0-0.8); Eosinophils % 2.7 %; Hematocrit 35.1 % (37.0-47.0); Hemoglobin 11.1 g/dL (11.5-15.3); Lymphocytes # 3.2 10^3/uL (0.8-4.8); Lymphocytes % 41.1 %; Mean Corpuscular HGB Conc 31.6 g/dL (30.0-36.0); Mean Corpuscular Hemoglobin 29.4 pg (28.0-34.0); Mean Corpuscular Volume 92.9 fl (81-99); Mean Platelet Volume 10.9 fL (7.4-10.4); Monocytes # 0.7 10^3/uL (0.2-0.9); Monocytes % 8.8 %; Neutrophils # 3.65 10^3/uL (1.8-7.7); Neutrophils % 46.5 %; Nucleated Red Blood Cells % 0 %; Platelet Count 285 10^3/cmm (130-400); Red Blood Count 3.78 10^6/uL (4.1-5.3); White Blood Count 7.8 10^3/uL (4.0-10.0)
[2022-07-30 05:31] LABS: Blood Urea Nitrogen 16 mg/dL (8-23); Calcium 9.5 mg/dL (8.5-10.5); Carbon Dioxide 22 mmol/L (22-29); Chloride 104 mmol/L (98-107); Glucose 197 mg/dL (65-115); Osmolality Calculated 295 mOsm/kg (285-295); Sodium 139 mmol/L (136-145)
[2022-07-30 06:00] VITALS: PULSE 114
[2022-07-30 06:42] LABS: Glucose Point of Care 189 mg/dL (70-110)
[2022-07-30 07:41] LABS: Glucose Point of Care 235 mg/dL (70-110)
--- NOTE | 2022-07-30 09:00 | MR_ITS ---
WS: [id number] MRI HEAD WITHOUT CONTRAST TECHNIQUE: Sagittal T1, T2 axial, T2 axial FLAIR, axial and coronal T1 images, axial susceptibility w eighted imaging, axial diffusion weighted images, and coronal T2 images were obtained. CLINICAL INFORMATION: stroke COMPARISON: MRI 2013 FINDINGS: No evidence of restricted diffusion to suggest acute ischemia. Ventricular system and basal cisterns are patent. No hemosiderin and on susceptibly weighted images. Moderate small vessel changes with mod erate parenchymal volume loss. Chronic lacunar infarcts in the LEFT greater than RIGHT basal ganglia. Small vessel changes in the marc. Tiny chronic lacunar infarcts in the thalamus. Normal posterior fossa. Normal vascular flow voids at the skull base. No extra-axial fluid collections. Paranasal sinuses are well aerated. Normal posterio r nasopharynx. Normal parapharyngeal fat. Temporal lobes and hippocampal formations are normal in appearance. Normal optic chiasm and pituitary infundibulum. Moderate symmetric atrophy temporal lobes and hippocampal formations. Stable posterior fossa meningioma measuring 1.6 x 0.8 cm similar to the MRI in 2013. No underlying edema. MR/MR head wo con* [id number] IMPRESSION: 1. No evidence of restricted diffusion to suggest acute ischemia. 2. Moderate small vessel changes with moderate parenchymal volume loss. This i s slightly progressed since 2013 3. Numerous chronic lacunar infarcts described above. 4. Small vessel changes in the marc. 5. Stable posterior fossa meningioma measuring 1.6 x 0.8 cm similar to the MRI in 2013. No underlying edema.
[2022-07-30] MEDS: insulin lispro 100 unit/1 mL SUBCUT ×2 (09:46→13:04)
[2022-07-30] MEDS: clopidogrel 75 mg Tablet PO (09:46)
[2022-07-30] MEDS: aspirin 81 mg EC Tablet PO (09:46)
[2022-07-30 11:12] LABS: Glucose Point of Care 337 mg/dL (70-110)
[2022-07-30 12:00] VITALS: BP 120/87; PULSE 125; RESP 16; TEMP 36.7; O2SAT 99
--- NOTE | 2022-07-30 13:08 | PM.DCS ---
Discharge Providers Date of Admission: 07/28/22 22:20 Date of Discharge: July 30, 2022 Attending Provider at Admission: Aleida Doss MD Attending Provider at Discharge: Amarjit Chavez MD Primary Care Provider: Malik Nicolas MD Diagnoses at Discharge Discharge Diagnosis (1) CVA (cerebral vascular accident): Status: Acute (2) UTI (urinary tract infection): Status: Acute (3) CKD (chronic kidney disease) stage 3, GFR 30-59 ml/min: Status: Acute Qualifiers: Chronic kidney disease stage 3 subtype: stage 3b (GFR 30-44) Qualified Code(s): N18.32 - Chronic kidney disease, stage 3b (4) Essential (primary) hypertension: Status: Acute (5) Diabetes mellitus type 2, uncontrolled: Status: Acute Qualifiers: Glycemic state: with hypoglycemia Coma presence: without coma Qualified Code(s): E11.649 - Type 2 diabetes mellitus with hypoglycemia without coma (6) Hyperlipidemia: Status: Acute Reason for Visit Reason for Visit: Weakness, numbness on left side, Slurred speech Hospital Course Hospital Course Gia Clement is a 71 year old female with a past medical history of hypertension, CVA with residual slurred speech, ambulates at baseline with her walker, presented to the emergency room today with symptoms that started on Wednesday (today is Wednesday night).? Patient was in her usual state of health until Wednesday when she started experiencing left arm weakness.? 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 Also her family has noticed that she is dragging her left foot along with her walker which is new for her.? Her speech seems to be slightly more slurred than usual.? Patient also feels that her left arm is colder and heavier compared to the right side which is a new sensation for her.? No recent trauma or falls.? No history of chest pain dyspnea palpitations syncope.? No fever.? No complaints of dysuria. Patient was admitted to [facility] left-sided weakness, slurring of her words, out of tPA window, NIH stroke scale 3, CT head within normal limits, medically managed with IV fluids, permissive hypertension, aspirin, Plavix, statin, overall patient clinically improved, facial droop resolved, weakness on the left side has improved, still has some slurring of her words which might be her chronic slurring from her prior stroke, discharged with home health care, to the care of her family. Aspirin and Plavix for 21 days followed by aspirin 81 mg, statin, follow-up with neurology in 2 weeks. If she were to have any recurrent strokelike symptoms to go to emergency room. She also had a UTI during hospitalization, urine culture showed gram-negative rods, cultures so far pending, discharged on Ceftin for 4 days. For type 2 diabetes mellitus, her GFR is 37, I do not recommend glimepiride due to risk of risk of hypoglycemia, but I have reduced her dose down to 1 mg twice daily, follow-up with primary care provider for potential switching to a GLP-1 analog. 1.? No evidence of restricted diffusion to suggest acute ischemia. 2.? Moderate small vessel changes with moderate parenchymal volume loss. This is slightly progressed since 2013 3.? Numerous chronic lacunar infarcts described above. 4.? Small vessel changes in the marc. 5.? Stable posterior fossa meningioma measuring 1.6 x 0.8 cm similar to the MRI in 2013. No underlying edema. -For her meningioma, follow-up with neurology, no acute changes Physical Exam Const: COMMON NORMALS: no acute distress and patient oriented x3 Resp: COMMON NORMALS: normal respiratory effort, No retractions, No use of accessory muscles and clear to auscultation bilaterally AUSCULTATION: clear to auscultation bilaterally Cardio: COMMON NORMALS: regular rate, regular rhythm, S1 normal heart sound present and S2 normal heart sound present RATE: regular rate RHYTHM: regular rhythm HEART SOUNDS: S1 normal heart sound present and S2 normal heart sound present GI: COMMON NORMALS: Normal to inspection, nondistended, normoactive bowel sounds present and non-tender Extremity: COMMON NORMALS: no calf tenderness and no pedal edema Neuro: COMMON NORMALS: patient oriented x3 Psych: COMMON NORMALS: mental status grossly normal Discharge Data Studies Completed and Pending Completed Studies During Hospitalization Category Date Time Status CT head wo con* [id number] Stat Cat Scan 07/28/22 18:19 Completed XR chest 1V portable [id number] Stat Exams 07/28/22 18:19 Completed MR head wo con* [id number] Routine MRI 07/30/22 09:00 Completed Pending at discharge Category Date Time Status Basic Metabolic Panel AM LABS Lab 07/31/22 04:00 Ordered Basic Metabolic Panel AM LABS Lab 08/01/22 04:00 Ordered Complete Blood Count w/Auto AM LABS Lab 07/31/22 04:00 Ordered Complete Blood Count w/Auto AM LABS Lab 08/01/22 04:00 Ordered Urine Culture Stat Lab 07/28/22 19:15 Results CV carotid duplex BI* [id number] Routine Ultrasound 07/29/22 23:09 Taken CV. echo complete* [id number] Routine Ultrasound 07/28/22 23:09 Taken Radiology Impressions Chest X-Ray 07/28/22 18:19 IMPRESSION: No acute findings. Head CT 07/28/22 18:19 IMPRESSION: 1. No acute intracranial abnormality. Head MRI 07/30/22 09:00 IMPRESSION: 1. No evidence of restricted diffusion to suggest acute ischemia. 2. Moderate small vessel changes with moderate parenchymal volume loss. This is slightly progressed since 2013 3. Numerous chronic lacunar infarcts described above. 4. Small vessel changes in the marc. 5. Stable posterior fossa meningioma measuring 1.6 x 0.8 cm similar to the MRI in 2013. No underlying edema. Laboratory Results WBC 7.8 10^3/uL (4.0-10.0) 07/30/22 05:04 RBC 3.78 10^6/uL (4.1-5.3) L 07/30/22 05:04 Hgb 11.1 g/dL (11.5-15.3) L 07/30/22 05:04 Hct 35.1 % (37.0-47.0) L 07/30/22 05:04 MCV 92.9 fl (81-99) 07/30/22 05:04 MCH 29.4 pg (28.0-34.0) 07/30/22 05:04 MCHC 31.6 g/dL (30.0-36.0) 07/30/22 05:04 RDW 13.0 % (12.1-15.1) 07/30/22 05:04 Plt Count 285 10^3/cmm (130-400) 07/30/22 05:04 MPV 10.9 fL (7.4-10.4) H 07/30/22 05:04 Neut % (Auto) 46.5 % 07/30/22 05:04 Lymph % (Auto) 41.1 % 07/30/22 05:04 [place] % (Auto) 8.8 % 07/30/22 05:04 Eos % (Auto) 2.7 % 07/30/22 05:04 Baso % (Auto) 0.8 % 07/30/22 05:04 Neut # (Auto) 3.65 10^3/uL (1.8-7.7) 07/30/22 05:04 Lymph # (Auto) 3.2 10^3/uL (0.8-4.8) 07/30/22 05:04 [place] # (Auto) 0.7 10^3/uL (0.2-0.9) 07/30/22 05:04 Eos # (Auto) 0.2 10^3/uL (0.0-0.8) 07/30/22 05:04 Baso # (Auto) 0.1 10^3/uL (0.0-0.1) 07/30/22 05:04 Nucleated RBC % (auto) 0 % 07/30/22 05:04 Nucleated RBCs # 0.0 /100WBC 07/30/22 05:04 PT 13.20 SECONDS (12.1-14.9) 07/28/22 19:01 INR 0.98 (0.8-1.2) 07/28/22 19:01 Sodium 139 mmol/L (136-145) 07/30/22 05:04 Potassium 4.0 mmol/L (3.5-5.1) 07/30/22 05:04 Chloride 104 mmol/L (98-107) 07/30/22 05:04 Carbon Dioxide 22 mmol/L (22-29) 07/30/22 05:04 Anion Gap 17.0 (5-19) 07/30/22 05:04 BUN 16 mg/dL (8-23) 07/30/22 05:04 Creatinine 1.5 mg/dL (0.5-0.9) H 07/30/22 05:04 GFR Calculation Not Reportable 07/30/22 05:04 Glucose 197 mg/dL (65-115) H 07/30/22 05:04 POC Glucose 337 mg/dL (70-110) H 07/30/22 10:57 Estimat Average Glucose 209 07/29/22 04:10 Hemoglobin A1c 8.9 % (4.0-6.0) H 07/29/22 04:10 Calculated Osmolality 295 mOsm/kg (285-295) 07/30/22 05:04 Calcium 9.5 mg/dL (8.5-10.5) 07/30/22 05:04 Total Bilirubin 0.2 mg/dL (0.15-1.2) 07/29/22 04:10 AST 14 U/L (0-32) 07/29/22 04:10 ALT 8 U/L (0-33) 07/29/22 04:10 Alkaline Phosphatase 113 U/L (35-105) H 07/29/22 04:10 Total Protein 6.3 g/dL (6.6-8.7) L 07/29/22 04:10 Albumin 3.6 g/dL (3.5-5.2) 07/29/22 04:10 Globulin 2.7 g/dL (1.3-4.6) 07/29/22 04:10 Triglycerides 325 mg/dL (0-150) H 07/29/22 04:10 Cholesterol 240 mg/dL (0-200) H 07/29/22 04:10 LDL Cholesterol, Calc 137 mg/dL (50-129) H 07/29/22 04:10 HDL Cholesterol 38 mg/dL (60-100) L 07/29/22 04:10 LDL/HDL Ratio 3.61 RATIO (0.00-3.22) H 07/29/22 04:10 Cholesterol/HDL Ratio 6.32 mg/dL (0.0-4.40) H 07/29/22 04:10 TSH 2.35 uIU/mL (0.27-4.20) 07/28/22 19:01 Urine Color Yellow (Yellow) 07/28/22 19:15 Urine Appearance Clear (CLEAR) 07/28/22 19:15 Urine pH 5 (5-7) 07/28/22 19:15 Ur Specific [place] 1.020 (1.005-1.030) 07/28/22 19:15 Urine Protein Neg (Negative) 07/28/22 19:15 Urine Glucose (UA) 2+ (Normal) H 07/28/22 19:15 Urine Ketones Negative (Negative) 07/28/22 19:15 Urine Blood Neg (Negative) 07/28/22 19:15 Urine Nitrate Positive (Negative) H 07/28/22 19:15 Urine Bilirubin Neg (Negative) 07/28/22 19:15 Urine Urobilinogen Neg mg/dL (Negative) 07/28/22 19:15 Ur Leukocyte Esterase Trace (Negative) H 07/28/22 19:15 Urine RBC 0-4 /hpf (0-2) H 07/28/22 19:15 Urine WBC 25-40 /hpf (0-5) H 07/28/22 19:15 Ur Squamous Epith Cells 0-4 /hpf (0-5) H 07/28/22 19:15 Amorphous Sediment Not Reportable 07/28/22 19:15 Urine Bacteria 2+ /hpf (NONE) H 07/28/22 19:15 Vitals Last Vital Signs Temp 98.0 F 07/30/22 12:00 Pulse 125 H 07/30/22 12:00 Resp 16 07/30/22 12:00 BP 120/87 07/30/22 12:00 Pulse Ox 99 07/30/22 12:00 O2 Del Method Room Air 07/30/22 03:55 O2 Flow Rate 3 07/29/22 20:00 Discharge Plan Discharge Patient Disposition: Home Health Service Condition: Stable Prescriptions: New aspirin 81 mg Tablet,Delayed Release (Dr/Ec) 81 mg PO DAILY 30 Days Qty: 30 0RF clopidogrel 75 mg Tablet 75 mg PO DAILY 20 Days Qty: 20 0RF cefdinir 300 mg capsule 300 mg PO BID 4 Days Qty: 8 0RF atorvastatin 40 mg Tablet 40 mg PO BEDTIME 30 Days Qty: 30 0RF Continued amlodipine 5 mg tablet 5 mg PO DAILY Qty: 90 3RF venlafaxine 150 mg capsule,extended release 24hr 150 mg PO DAILY Qty: 90 3RF tizanidine 4 mg Tablet 4 mg PO Q6H PRN (Reason: Spasms) gabapentin 300 mg Capsule 300 mg PO DAILY atenolol 25 mg tablet 25 mg PO DAILY levothyroxine 75 mcg tablet 75 mcg PO DAILY losartan-hydrochlorothiazide 100-25 mg tablet 1 tab PO DAILY aripiprazole 5 mg tablet 5 mg PO DAILY Changed glimepiride 2 mg tablet 1 mg PO BID 30 Days Qty: 30 0RF Discontinued celecoxib 200 mg capsule 200 mg PO BID Discharge Orders: Discharge Order (Routine); Ordered 07/30/22 Ordered By: Amarjit Chavez Referrals: Malik Nicolas MD [Primary Care Provider] - 1-3 days Santos Cardenas MD [Physician] - 2 weeks Discharge Diet: Diabetic Discharge Activity: Resume usual activity Patient Instructions: Ischemic Stroke (DC), Opioid Safety Activity Restrictions/Additional Instructions: - I have decreased glimepiride 1 mg twice daily, based on your GFR which is 37, I would speak to her primary care provider about stopping it indefinitely, and switching you to a GLP-1 analog -Have discharged on aspirin 81 mg daily with atorvastatin 40 mg once daily -Plavix 75 mg once daily for 20 days then stop taking -As I am discharging you on aspirin and Plavix, these are strong blood thinners, if you develop bloody or black stools go to the emergency room -Please have your primary care provider recheck your CBC and your kidney function in 1 week -For your stroke, see neurology in 2 weeks -If you have any recurrent if you have any recurrent strokelike symptoms Discharge Attestations Time Spent in Discharge Care*: greater than 30 min Quality Metrics Clinical Quality Measures [ Cerebrovascular Accident { Contraindication to Antithrombotic: None; antithrombotic prescribed; Contraindication to Anticoagulation: Overlap treatment not indicated; Contraindication to Statin: None; Statin prescribed;}] Coding Level of Care Code 32556 Total time (in minutes) for Discharge: 45 Diagnoses CVA (cerebral vascular accident) I63.9 UTI (urinary tract infection) N39.0 CKD (chronic kidney disease) stage 3, GFR 30-59 ml/min N18.32 Chronic kidney disease stage 3 subtype: stage 3b (GFR 30-44) Essential (primary) hypertension I10 Diabetes mellitus type 2, uncontrolled E11.649 Glycemic state: with hypoglycemia Coma presence: without coma Hyperlipidemia E78.5
== END 2022-07-30 15:09 | disposition home health service (06) | DRG 65 ==
LOC: ER 20:52 → MEDSURG 22:22
PROVIDERS: Admitting Provider Student in an Organized Health Care Education/Training Program; Emergency Provider Emergency Medicine; PCP Internal Medicine; Visit Provider Family Medicine
DX: I63.9 Cerebral infarction, unspecified (principal); G81.94 Hemiplegia, unspecified affecting left nondominant side; N39.0 Urinary tract infection, site not specified; R29.703 NIHSS score 3; Z87.891 Personal history of nicotine dependence; I69.328 Other speech and language deficits following cerebral infarction; I12.9 Hypertensive chronic kidney disease with stage 1 through stage 4 chronic kidney disease, or unspecified chronic kidney disease; E11.22 Type 2 diabetes mellitus with diabetic chronic kidney disease; F32.A Depression, unspecified; E11.649 Type 2 diabetes mellitus with hypoglycemia without coma; E03.9 Hypothyroidism, unspecified; G35 Multiple sclerosis; E11.40 Type 2 diabetes mellitus with diabetic neuropathy, unspecified; I73.00 Raynaud's syndrome without gangrene; G25.81 Restless legs syndrome; E78.1 Pure hyperglyceridemia; E78.5 Hyperlipidemia, unspecified; N18.32 Chronic kidney disease, stage 3b
CPT/HCPCS: 36415; 36416; 70450; 70551; 71045; 80048; 80053; 80061; 81001; 82962; 83036; 84443; 85025; 85610; 87077; 87086; 87186; 90471; 90732; 92523; 92610; 93005; 93306; 93880; 96365; 96372; 97116; 97161; 97167; 97530; 97535; 99285; J0696; J1815

== ENCOUNTER → 2022-08-19 14:39 | Outpatient (BNVA) | payer MEDICARE, OTHER, SELFPAY | PROVIDERS: PCP Internal Medicine; Visit Provider Psychiatry & Neurology Neurology | DX: I69.354 Hemiplegia and hemiparesis following cerebral infarction affecting left non-dominant side (principal); I69.322 Dysarthria following cerebral infarction; I10 Essential (primary) hypertension; E11.29 Type 2 diabetes mellitus with other diabetic kidney complication; E78.5 Hyperlipidemia, unspecified; D32.9 Benign neoplasm of meninges, unspecified | CPT/HCPCS: 99202 ==

== ENCOUNTER 2022-08-24 09:29 | Outpatient (CLI) | payer MEDICARE, OTHER, SELFPAY ==
--- NOTE | 2022-08-24 09:46 | FL_ITS ---
WS: [id number] FL barium swallow modifd [id number] REASON FOR EXAM: Pharyngoesoph. dysphagia FLUOROSCOPY TIME: 3min [id number] # OF SPOT FILMS: None FINDINGS: Patient was examined in the lateral upright sitting position. The procedure was supervised by the speech therapy department. The swallowing of varying consistencies of barium was monitored fluoroscopically with video fluorosco pic recording. Small amount of aspiration was identified during the examination. A detailed analysis and report of the swallowing will be rendered by the speech therapy department. FL/FL barium swallow modifd [id number] IMPRESSION: Modified barium swallow as above.
== END 2022-08-24 09:30 | disposition home or self-care (01) ==
PROVIDERS: PCP Internal Medicine; Visit Provider Internal Medicine
DX: R13.14 Dysphagia, pharyngoesophageal phase (principal); G35 Multiple sclerosis
CPT/HCPCS: 74230; 92611

== ENCOUNTER → 2023-01-27 13:10 | Outpatient (BNVA) | payer MEDICARE, OTHER, SELFPAY | PROVIDERS: PCP Internal Medicine; Visit Provider Psychiatry & Neurology Neurology | DX: I69.354 Hemiplegia and hemiparesis following cerebral infarction affecting left non-dominant side (principal); I69.328 Other speech and language deficits following cerebral infarction; I12.9 Hypertensive chronic kidney disease with stage 1 through stage 4 chronic kidney disease, or unspecified chronic kidney disease; E11.22 Type 2 diabetes mellitus with diabetic chronic kidney disease; N18.30 Chronic kidney disease, stage 3 unspecified; Z79.84 Long term (current) use of oral hypoglycemic drugs; Z87.891 Personal history of nicotine dependence; E78.5 Hyperlipidemia, unspecified | CPT/HCPCS: 99212 ==

== ENCOUNTER → 2023-07-26 13:07 | Outpatient (BNVA) | payer MEDICARE, OTHER, SELFPAY | PROVIDERS: PCP Internal Medicine; Visit Provider Psychiatry & Neurology Neurology | DX: I69.354 Hemiplegia and hemiparesis following cerebral infarction affecting left non-dominant side (principal); I12.9 Hypertensive chronic kidney disease with stage 1 through stage 4 chronic kidney disease, or unspecified chronic kidney disease; N18.30 Chronic kidney disease, stage 3 unspecified | CPT/HCPCS: 99212 ==

== ENCOUNTER 2023-11-01 15:51 | Emergency (ER) | payer MEDICARE, OTHER, SELFPAY ==
[2023-11-01 15:54] VITALS: BP 130/81; PULSE 82; RESP 18; TEMP 36.7; O2SAT 100
[2023-11-01 16:00] VITALS: BP 124/74; PULSE 84; O2SAT 99
--- NOTE | 2023-11-01 16:13 | XRR_ITS ---
PROCEDURE INFORMATION: Exam: XR Left Foot Exam date and time: 11/01/2023 4:23 PM Age: 73 years old Clinical indication: Swelling, leg or foot; Patient HX: Lt foot ankle swelling no trauma TECHNIQUE: Imaging protocol: Radiologic exam of the left foot. Views: 3 or more views. COMPARISON: CR XR foot LT min 3V* [id number] 06/18/2020 10:31 AM FINDINGS: Bones/joints: No acute fracture or dislocation. Mild degenerative changes involving multiple interphalangeal joints, most pronounced in the 3rd through 5th digits. Mild degenerative changes of the 1st MTP joint. [id number]-[id number]-yfucwizn degenerative changes of the midfoot. Plantar calcaneal enthesophyte. Diffuse osseous demineralization. Soft tissues: Mild soft tissue swelling of the forefoot. XR/XR foot LT min 3V* [id number] IMPRESSION: No acute osseous findings.
--- NOTE | 2023-11-01 16:13 | XRR_ITS ---
PROCEDURE INFORMATION: Exam: XR Right Ankle Exam date and time: 11/01/2023 4:23 PM Age: 73 years old Clinical indication: Swelling or effusion of joint; Patient HX: Lt foot ankle swelling no trauma TECHNIQUE: Imaging protocol: Radiologic exam of the right ankle. Views: 3 or more views. COMPARISON: CR XR foot RT min 3V* [id number] 06/18/2020 10:36 AM FINDINGS: Bones/joints: No acute fracture or dislocation. Joint spaces are relatively preserved. Symmetric ankle mortise. Plantar calcaneal enthesophyte. Mnpw-wr-cjcnsinz degenerative changes through the midfoot. Soft tissues: Moderate soft tissue swelling about the ankle. No ankle joint effusion. Vasculature: Vascular calcifications are noted. XR/XR ankle RT min 3V* [id number] IMPRESSION: Moderate soft tissue swelling about the ankle. No acute osseous findings.
--- NOTE | 2023-11-01 16:14 | ED_ITS ---
HPI - Extremity Problem General: Chief complaint: Extremity Problem,Nontraumatic Stated complaint: left ankle swelling Time Seen by Provider: 11/01/23 15:59 Source: patient Mode of arrival: EMS Limitations: no limitations History of Present Illness: Patient is a 73-year-old female with a an extensive past medical history including CKD, Raynaud's, CVA with residual deficits, HTN, RLS, hypothyroidism, peripheral neuropathy, multiple sclerosis, diabetes who presents to ED today via EMS from her half-way for evaluation of left ankle/foot swelling starting this morning as well as a small amount of warmth/erythema. Patient is ambulatory with the help of a cane/walker. She has not had any known injury or trauma. No history of gout. She is currently rating her pain is minimal. No calf pain. No other swelling to the extremity. MD Complaint: extremity pain, extremity swelling, joint swelling and joint pain Radiation: none Relieving factors: nothing Exacerbating factors: nothing Associated symptoms: Reports no associated symptoms; Deny chest pain, fever(s) or rash Related Data Home Medications Medication Instructions Recorded Confirmed gabapentin 300 mg capsule 300 mg PO DAILY 09/11/20 07/26/23 tizanidine 4 mg tablet 4 mg PO Q6H PRN Spasms 09/11/20 07/26/23 aripiprazole 5 mg tablet 5 mg PO DAILY 07/29/22 07/26/23 atenolol 25 mg tablet 25 mg PO DAILY 07/29/22 07/26/23 levothyroxine 75 mcg tablet 75 mcg PO DAILY 07/29/22 07/26/23 losartan 100 1 tab PO DAILY 07/29/22 07/26/23 mg-hydrochlorothiazide 25 mg tablet sildenafil 25 mg tablet (Viagra) 25 mg PO DAILY PRN 01/27/23 07/26/23 tramadol 50 mg tablet 50 mg PO DAILY 01/27/23 07/26/23 aspirin 325 mg tablet 325 mg PO DAILY 07/26/23 07/26/23 Previous Rx's Medication Instructions Recorded amlodipine 5 mg tablet 5 mg PO DAILY #90 tabs 04/09/21 venlafaxine 150 mg 150 mg PO DAILY #90 caps 01/28/22 capsule,extended release 24 hr glimepiride 2 mg tablet 1 mg (1/2 x 2 mg) PO BID 30 days 05/18/23 #30 tabs cephalexin 500 mg capsule 500 mg PO Q6H 7 days #28 caps 11/01/23 Allergies Allergy/AdvReac Type Severity Reaction Status Date / Time No Known Allergies Allergy Verified 07/26/23 14:01 Review of Systems Const: Denies: fever(s) Card: Denies: chest pain Resp: Denies: dyspnea Musc: Reports: extremity pain (L foot), extremity swelling (L foot), joint pain (L ankle) and joint swelling (L ankle) Skin/Breast: Reports: erythema (L foot/ankle); Denies: rash or pruritus PFSH ED 2 PFSH: Medical History CKD (chronic kidney disease) stage 3, GFR 30-59 ml/min Raynauds disease Intertrochanteric fracture of left hip Chronic kidney disease CVA (cerebral vascular accident) Hypertension Depression RLS (restless legs syndrome) Hypothyroidism Dysphagia Neuropathy of both feet Multiple sclerosis Essential (primary) hypertension Diabetes mellitus type 2, uncontrolled Surgical History History of surgery on right wrist History of surgery on left wrist History of esophagogastroduodenoscopy (EGD) History of colonoscopy History of back surgery Family History Other Cancer Epilepsy Hypertension Social History Smoking and tobacco/nicotine status: never used tobacco/nicotine Alcohol intake: current Alcohol intake frequency: few times a month Physical Exam Const: COMMON NORMALS: no acute distress, no limitations, alert and well nourished GENERAL APPEARANCE: cooperative Resp: COMMON NORMALS: normal respiratory effort and clear to auscultation bilaterally AUSCULTATION: clear to auscultation bilaterally Cardio: COMMON NORMALS: regular rate and regular rhythm RATE: regular rate RHYTHM: regular rhythm Extremity: COMMON NORMALS: full ROM, capillary refill normal and no calf tenderness GENERAL: Yes normal exam except as noted LEFT LOWER EXTREMITY: Yes ankle joint Left ankle: Yes neurovascular exam (normal) and Yes foot & digits Left foot and digits: Yes neurovascular exam (normal) OTHER: pt has some mild edema surrounding L ankle and proximal dorsal L foot with some mild erythema/warmth; I am able to easily passively move ankle joint without eliciting much discomfort; no obvious bony abnormalities; she has no history to suggest gout; erythema is blanching; she has no calf pain/swelling; exam not suspicious for DVT Neuro: COMMON NORMALS: moves all extremities, no focal motor deficits and no sensory deficits noted SENSORIUM/ORIENTATION: Yes alert Course Vital Signs: Vital signs: Vital Signs Temperature 98.1 F 11/01/23 15:54 Pulse Rate 82 11/01/23 15:54 Respiratory Rate 18 11/01/23 15:54 Blood Pressure 130/81 11/01/23 15:54 Pulse Oximetry 100 11/01/23 15:54 Oxygen Delivery Me thod Room Air 11/01/23 15:54 MDM - Extremity (Nontraumatic) Medical Decision Making Patient here for redness, swelling, warmth to her left foot and ankle starting today. No known injury or trauma. Her x-rays do not show any acute bony abnormalities. She does have a small avulsion gulshan off of her first metatarsal but this was present on previous films. No history of gout. No concern for septic arthritis. 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 Return to ED precautions given. Medical Records I reviewed the patient's medical records. XR interpretation done by ED provider, pending radiology final review ED provider radiology interpretation(s): XR interpretation done by ED provider, pending radiology final review ED provider radiology interpretation(s): Significant arthritic changes noted, avulsion fracture from her first metatarsal present on previous films; no acute abnormalities noted Discharge Plan Discharge Patient Disposition: Home Clinical Impression: Cellulitis of left foot Condition: Stable Prescriptions: New cephalexin 500 mg capsule 500 mg PO Q6H 7 Days Qty: 28 0RF No Action tramadol 50 mg tablet 50 mg PO DAILY sildenafil [Viagra] 25 mg tablet 25 mg PO DAILY PRN Rx Instructions: administer 30 minutes to 4 hours before activity aspirin 325 mg tablet 325 mg PO DAILY amlodipine 5 mg tablet 5 mg PO DAILY Qty: 90 3RF venlafaxine 150 mg capsule,extended release 24hr 150 mg PO DAILY Qty: 90 3RF tizanidine 4 mg Tablet 4 mg PO Q6H PRN (Reason: Spasms) gabapentin 300 mg Capsule 300 mg PO DAILY atenolol 25 mg tablet 25 mg PO DAILY levothyroxine 75 mcg tablet 75 mcg PO DAILY losartan-hydrochlorothiazide 100-25 mg tablet 1 tab PO DAILY aripiprazole 5 mg tablet 5 mg PO DAILY glimepiride 2 mg tablet 1 mg PO BID 30 Days Qty: 30 0RF Discharge Orders: Discharge ED (Routine); Ordered 11/01/23 Ordered By: Grtea Fabian Referrals: Malik Nicolas MD [Primary Care Provider] - Patient Instructions: Cellulitis (ED) Activity Restrictions/Additional Instructions: As we discussed we will treat you for a cellulitis of your left foot and ankle. You need to seek medical reevaluation if redness/warmth/swelling does not begin to improve despite antibiotic therapy. Coding Level of Care Code ED Hotel Director for Kelly Sam
[2023-11-01 17:00] VITALS: BP 140/81; PULSE 78; O2SAT 95
--- NOTE | 2023-11-01 17:06 | PC.NURSE ---
this nurse called [facility] 5 times, the first 2 calls were unanswered, then i was put on hold with no answer. called again with no answer. I called pt's daughter and the number listed in inactive. pt unable to give any numbers for this nurse to call.
[2023-11-01] MEDS: cephALEXin 500 mg Capsule PO (17:33)
[2023-11-01 17:35] VITALS: BP 126/78; PULSE 86; O2SAT 98
== END 2023-11-01 18:11 | disposition home or self-care (01) ==
PROVIDERS: Emergency Provider Physician Assistant; PCP Family Medicine
DX: L03.116 Cellulitis of left lower limb (principal); Z79.82 Long term (current) use of aspirin; E11.22 Type 2 diabetes mellitus with diabetic chronic kidney disease; I12.9 Hypertensive chronic kidney disease with stage 1 through stage 4 chronic kidney disease, or unspecified chronic kidney disease; N18.30 Chronic kidney disease, stage 3 unspecified; Z86.73 Personal history of transient ischemic attack (TIA), and cerebral infarction without residual deficits; G35 Multiple sclerosis
CPT/HCPCS: 73610; 73630; 99283

== ENCOUNTER 2023-11-11 12:03 | Emergency (ER) | payer MEDICARE, OTHER, SELFPAY ==
[2023-11-11] VITALS (9 sets, daily range): BP systolic 123–135; BP diastolic 71–83; PULSE 73–87; RESP 16–18; TEMP 36.7; O2SAT 95–98
--- NOTE | 2023-11-11 12:28 | XR_ITS ---
WS: [id number] Exam: XR foot LT min 3V* [id number] Date/Time of Exam: 11/11/2023 12:33 PM Reason For Exam: pain swelling Comparison 11/01/2023. There is almost complete disruption of the Lisfranc joint secondary to fragmentation and bony scleros is as well as fractures of the cuneiform bones. This is most severe involving the first and second cu neiforms. Severe degenerative change in the midfoot joints, IP joints and MP joints. Marked demineral ization of bone. Marked soft tissue swelling about the foot most severe in the forefoot region. Overa ll, the appearance is most suggestive of Charcot osteoarthropathy. Significant change in the midfoot since the last exam. XR/XR foot LT min 3V* [id number] IMPRESSION: 1. Complete disruption of the Lisfranc joint secondary to fracture, fragmentati on and bony sclerosis of the cuneiforms. 2. Advanced degenerative changes of the foot with findings that suggest Charcot arthropathy. Marked soft tissue swelling. Total disruption of the midfoot when compared to the last study.
--- NOTE | 2023-11-11 12:52 | ED_ITS ---
HPI - Extremity Problem 2 General: Chief complaint: Extremity Problem,Nontraumatic Stated complaint: foot swelling Time Seen by Provider: 11/11/23 12:28 History of Present Illness: 73-year-old female who is a resident of a local long-term presents emergency room with complaint of deformity and pain and swelling in her left foot deformity is at the level of the metatarsal tarsal joints along the medial arch. This been going on for the last 2 weeks. She has previously been on oral antibiotics for this. She also has a right heel ulcer for which she is being treated at the long-term she has no skin breakdown ulceration laceration associated with the left foot. No trauma associated with the left foot. Associated symptoms: Deny chest pain, fever(s) or rash Related Data Home Medications Medication Instructions Recorded Confirmed gabapentin 300 mg capsule 300 mg PO DAILY 09/11/20 11/11/23 tizanidine 4 mg tablet 4 mg PO Q6H PRN Spasms 09/11/20 11/11/23 aripiprazole 5 mg tablet 5 mg PO DAILY 07/29/22 11/11/23 atenolol 25 mg tablet 25 mg PO DAILY 07/29/22 11/11/23 tramadol 50 mg tablet 50 mg PO DAILY PRN pain/elevated 01/27/23 11/11/23 temp acetaminophen 325 mg tablet 650 mg PO Q6H PRN pain/increased 11/11/23 11/11/23 temp bisacodyl 5 mg tablet,delayed See Rx Instructions .Route 11/11/23 11/11/23 release (Laxative (bisacodyl)) .COMPLEX PRN Constipation celecoxib 200 mg capsule 200 mg PO BID 11/11/23 11/11/23 glimepiride 4 mg tablet 4 mg PO BID 11/11/23 11/11/23 insulin aspart U-100 100 unit/mL See Rx Instructions .Route .COMPLEX 11/11/23 11/11/23 (3 mL) subcutaneous pen (Novolog FlexPen U-100 Insulin aspart) insulin glargine 100 unit/mL (3 10 unit SUBCUT BEDTIME 11/11/23 11/11/23 mL) subcutaneous pen (Lantus Solostar U-100 Insulin) levothyroxine 25 mcg tablet 25 mcg PO DAILY 11/11/23 11/11/23 magnesium hydroxide 400 mg/5 mL See Rx Instructions .Route 11/11/23 11/11/23 oral suspension (Milk of Magnesia) .COMPLEX PRN Constipation Previous Rx's Medication Instructions Recorded amlodipine 5 mg tablet 5 mg PO DAILY #90 tabs 04/09/21 venlafaxine 150 mg 150 mg PO DAILY #90 caps 01/28/22 capsule,extended release 24 hr hydrocodone 5 mg-acetaminophen 325 1 tab PO Q6H PRN pain #12 tabs 11/11/23 mg tablet losartan 100 mg tablet 100 mg PO DAILY #30 tabs 11/11/23 Allergies Allergy/AdvReac Type Severity Reaction Status Date / Time No Known Allergies Allergy Verified 07/26/23 14:01 Review of Systems 2 Const: Denies: fever(s) or chills Card: Denies: chest pain Resp: Denies: dyspnea GI: Denies: abdominal pain : Denies: dysuria, urinary frequency or urinary urgency Musc: Reports: joint pain and joint swelling; Denies: neck pain or back pain Skin/Breast: Denies: rash PFSH ED 2 PFSH: Medical History CKD (chronic kidney disease) stage 3, GFR 30-59 ml/min Raynauds disease Intertrochanteric fracture of left hip Chronic kidney disease CVA (cerebral vascular accident) Hypertension Depression RLS (restless legs syndrome) Hypothyroidism Dysphagia Neuropathy of both feet Multiple sclerosis Essential (primary) hypertension Diabetes mellitus type 2, uncontrolled Surgical History History of surgery on right wrist History of surgery on left wrist History of esophagogastroduodenoscopy (EGD) History of colonoscopy History of back surgery Family History Other Cancer Epilepsy Hypertension Social History Smoking and tobacco/nicotine status: never used tobacco/nicotine Alcohol intake: current Alcohol intake frequency: few times a month Physical Exam 2 Const: COMMON NORMALS: no acute distress GENERAL APPEARANCE: cooperative and comfortable ORIENTATION/CONSCIOUSNESS: Yes awake HENMT: COMMON NORMALS: normocephalic, atraumatic and hearing grossly normal bilaterally HEAD & SCALP: normocephalic and atraumatic Resp: COMMON NORMALS: normal respiratory effort, No retractions, No use of accessory muscles and clear to auscultation bilaterally AUSCULTATION: clear to auscultation bilaterally Cardio: COMMON NORMALS: regular rate, regular rhythm and No murmurs present (Cardio) RATE: regular rate RHYTHM: regular rhythm GI: COMMON NORMALS: Soft to palpation and No hepatosplenomegaly present A USCULTATION: Yes normoactive bowel sounds PALPATION: Yes Soft to palpation, No Tenderness to palpation present (GI), No Guarding due to palpation present (GI) and Yes No hepatosplenomegaly present Extremity: COMMON NORMALS: normal to inspection, capillary refill normal, no clubbing, cyanosis or edema, no calf tenderness and no pedal edema Skin: COMMON NORMALS: no rashes or lesions noted GENERAL SKIN EXAM: no rashes or lesions noted Course 2 Vital Signs: Vital signs: Vital Signs Temperature 98.1 F 11/11/23 12:19 Pulse Rate 77 11/11/23 15:00 Respiratory Rate 16 11/11/23 14:30 Blood Pressure 130/77 11/11/23 14:00 Pulse Oximetry 97 11/11/23 15:00 Oxygen Delivery Me thod Room Air 11/11/23 14:30 MDM - Extremity (Nontraumatic) Medical Decision Making New Lisfranc fracture of the left foot not present on the previous x-rays. No leukocytosis there is no evidence of osteomyelitis on the CT or on the plain film no subcutaneous gas. She did have an slight elevation of her BUN and creatinine however comparison creatinine is more than 15 months old. It may be that her baseline is shifted. She has certainly been higher than today's level in the past. She was given a liter of IV fluids and we will have her stop her hydrochlorothiazide continue on plain losartan. She does have a known history of stage III chronic kidney disease so this is not completely out of line for her and can be rechecked at the long-term in 3 to 5 days. We have made arrangements for her to follow-up with podiatry. Dr. Caal who is on-call discussed the findings with me and he reviewed the imaging as well recommends outpatient consultation for planning of definitive surgical treatment in the future. Lab Data 11/11/23 13:10 11/11/23 13:10 Radiology Impressions Foot X-Ray 11/11/23 12:28 IMPRESSION: 1. Complete disruption of the Lisfranc joint secondary to fracture, fragmentation and bony sclerosis of the cuneiforms. 2. Advanced degenerative changes of the foot with findings that suggest Charcot arthropathy. Marked soft tissue swelling. Total disruption of the midfoot when compared to the last study. Foot CT 11/11/23 14:16 IMPRESSION: 1. Lisfranc fracture deformity with comminuted fractures involving the first and second cuneiforms as well as the bases of the first and second metatarsals. 2. Advanced demineralization. 3. Additional slightly comminuted fractures involving the anterior surfaces of the third cuneiform and cuboid. 4. Additional fractures involving the bases of the third through fifth metatarsals with intra-articular extension. Soft tissue edema worse involving the dorsal foot. Laboratory Results WBC 3.80 10^3/uL (3.29-11.43) 11/11/23 13:10 RBC 3.33 10^6/uL (3.85-5.65) L 11/11/23 13:10 Hgb 9.50 g/dL (11.27-16.99) L 11/11/23 13:10 Hct 30.3 % (36-47) L 11/11/23 13:10 MCV 91.0 fl (85-98) 11/11/23 13:10 MCH 28.5 pg (27-33) 11/11/23 13:10 MCHC 31.4 g/dL (30-55) 11/11/23 13:10 RDW 12.7 % (12.1-15.1) 11/11/23 13:10 Plt Count 289 10^3/cmm (157-399) 11/11/23 13:10 MPV 10.4 fL (7.4-10.4) 11/11/23 13:10 Neut % (Auto) 40.8 % 11/11/23 13:10 Lymph % (Auto) 36.3 % 11/11/23 13:10 [place] % (Auto) 14.2 % 11/11/23 13:10 Eos % (Auto) 7.9 % 11/11/23 13:10 Baso % (Auto) 0.5 % 11/11/23 13:10 Neut # (Auto) 1.55 10^3/uL (1.8-7.7) L 11/11/23 13:10 Lymph # (Auto) 1.4 10^3/uL (0.8-4.8) 11/11/23 13:10 [place] # (Auto) 0.5 10^3/uL (0.2-0.9) 11/11/23 13:10 Eos # (Auto) 0.3 10^3/uL (0.0-0.8) 11/11/23 13:10 Baso # (Auto) 0.0 10^3/uL (0.0-0.1) 11/11/23 13:10 Nucleated RBC % (auto) 0 % 11/11/23 13:10 Nucleated RBCs # 0.0 /100WBC 11/11/23 13:10 Sodium 136 mmol/L (136-145) 11/11/23 13:10 Potassium 4.5 mmol/L (3.5-5.1) 11/11/23 13:10 Chloride 100 mmol/L (98-107) 11/11/23 13:10 Carbon Dioxide 24 mmol/L (22-29) 11/11/23 13:10 Anion Gap 16.5 (5-19) 11/11/23 13:10 BUN 47 mg/dL (8-23) H 11/11/23 13:10 Creatinine 2.3 mg/dL (0.5-0.9) H 11/11/23 13:10 GFR Calculation Not Reportable 11/11/23 13:10 Glucose 143 mg/dL (65-115) H 11/11/23 13:10 Calculated Osmolality 297 mOsm/kg (285-295) H 11/11/23 13:10 Lactic Acid 1.3 mmol/L (0.5-2.2) 11/11/23 13:10 Calcium 8.5 mg/dL (8.5-10.5) 11/11/23 13:10 Total Bilirubin 0.2 mg/dL (0.15-1.2) 11/11/23 13:10 AST 18 U/L (0-32) 11/11/23 13:10 ALT 10 U/L (0-33) 11/11/23 13:10 Alkaline Phosphatase 126 U/L (35-105) H 11/11/23 13:10 Total Protein 6.8 g/dL (6.6-8.7) 11/11/23 13:10 Albumin 3.7 g/dL (3.5-5.2) 11/11/23 13:10 Globulin 3.1 g/dL (1.3-4.6) 11/11/23 13:10 All radiology interpretation(s) finalized by discharge Discharge Plan Discharge Patient Disposition: Home Clinical Impression: Lisfranc fracture, Diabetic foot ulcer associated with type 2 diabetes mellitus, CKD (chronic kidney disease) stage 3, GFR 30-59 ml/min, Raynauds disease Condition: Stable Prescriptions: New hydrocodone-acetaminophen 5-325 mg tablet 1 tab PO Q6H PRN (Reason: pain) Qty: 12 0RF losartan 100 mg tablet 100 mg PO DAILY Qty: 30 0RF Discontinued losartan-hydrochlorothiazide 100-25 mg tablet 1 tab PO DAILY No Action tramadol 50 mg tablet 50 mg PO DAILY PRN (Reason: pain/elevated temp) amlodipine 5 mg tablet 5 mg PO DAILY Qty: 90 3RF venlafaxine 150 mg capsule,extended release 24hr 150 mg PO DAILY Qty: 90 3RF tizanidine 4 mg Tablet 4 mg PO Q6H PRN (Reason: Spasms) gabapentin 300 mg Capsule 300 mg PO DAILY atenolol 25 mg tablet 25 mg PO DAILY aripiprazole 5 mg tablet 5 mg PO DAILY celecoxib 200 mg capsule 200 mg PO BID acetaminophen 325 mg Tablet 650 mg PO Q6H PRN (Reason: pain/increased temp) levothyroxine 25 mcg tablet 25 mcg PO DAILY Milk of Magnesia 400 mg/5 mL Suspension See Rx Instructions .ROUTE .COMPLEX PRN (Reason: Constipation) Rx Instructions: Take 30 mL by mouth every 72 hours as needed if no bm in 3 days. glimepiride 4 mg tablet 4 mg PO BID Laxative (bisacodyl) 5 mg tablet,delayed release (DR/EC) See Rx Instructions .ROUTE .COMPLEX PRN (Reason: Constipation) Rx Instructions: Take 2 tablets (10 mg) by mouth as needed for constipation if no results from Milk of Mag. Novolog FlexPen U-100 Insulin 100 unit/mL (3 mL) insulin pen See Rx Instructions .ROUTE .COMPLEX Rx Instructions: Give before meals and at bedtime per sliding scale: If bs is less than 60, call MD. Bs 150-200=3 units, bs 201-250=5 units, bs 251-300=7 units, bs 301- 350=9 units, bs 351-400=10 units. bs greater than 400 call . [place] Solostar U-100 Insulin 100 unit/mL (3 mL) insulin pen 10 unit SUBCUT BEDTIME Discharge Orders: Discharge ED (Routine); Ordered 11/11/23 Ordered By: Eliezer Kramer Referrals: Marcy Johnson MD [Primary Care Provider] - Discharge Diet: Usual diet Discharge Activity: Limit activity as instructed Patient Instructions: Opioid Safety, Pain Management Activity Restrictions/Additional Instructions: Thank you for choosing [facility] for your healthcare needs today. It is very important that you follow up as instructed or that you return to the Emergency Department should you have concerns or if your condition changes or worsens in any way. You were seen in the emergency room for pain in the left foot. Your white count was normal CT and x-ray showed fairly significant fracture in the area of swelling of your foot. This is new from earlier this month on a plain x-ray on October 31 was normal. You were placed in a posterior splint and should not bear weight on the left foot until cleared by podiatry. Case management will make arrangements for podiatry follow-up as an outpatient. There is also a slight increase in your renal function. You are given IV fluids recommend that you stop the hydrochlorothiazide take plain losartan and follow- up in 3 to 5 days with repeat kidney function by your primary care physician at the long-term. Coding Level of Care Code ED Dump Truck Driver [address] for Kelly Sam
[2023-11-11 13:24] LABS: Basophils % 0.5 %; Eosinophils # 0.3 10^3/uL (0.0-0.8); Eosinophils % 7.9 %; Hematocrit 30.3 % (36-47); Lymphocytes # 1.4 10^3/uL (0.8-4.8); Lymphocytes % 36.3 %; Mean Corpuscular HGB Conc 31.4 g/dL (30-55); Mean Corpuscular Hemoglobin 28.5 pg (27-33); Mean Platelet Volume 10.4 fL (7.4-10.4); Monocytes # 0.5 10^3/uL (0.2-0.9); Monocytes % 14.2 %; Neutrophils # 1.55 10^3/uL (1.8-7.7); Neutrophils % 40.8 %; Nucleated Red Blood Cells % 0 %; Platelet Count 289 10^3/cmm (157-399); Red Blood Count 3.33 10^6/uL (3.85-5.65); Red Cell Distribution Width 12.7 % (12.1-15.1)
[2023-11-11 13:44] LABS: Alanine Aminotransferase 10 U/L (0-33); Albumin Level 3.7 g/dL (3.5-5.2); Alkaline Phosphatase 126 U/L (35-105); Anion Gap 16.5 (5-19); Aspartate Amino Transferase 18 U/L (0-32); Blood Urea Nitrogen 47 mg/dL (8-23); Calcium 8.5 mg/dL (8.5-10.5); Carbon Dioxide 24 mmol/L (22-29); Chloride 100 mmol/L (98-107); Creatinine Clr Calc Pharmacy 23.6638; Globulin 3.1 g/dL (1.3-4.6); Glucose 143 mg/dL (65-115); Lactic Sepsis W/Reflex 1.3 mmol/L (0.5-2.2); Osmolality Calculated 297 mOsm/kg (285-295); Potassium 4.5 mmol/L (3.5-5.1); Sodium 136 mmol/L (136-145); Total Bilirubin 0.2 mg/dL (0.15-1.2); Total Protein 6.8 g/dL (6.6-8.7)
--- NOTE | 2023-11-11 14:05 | PC.PHAR ---
longterm med list does not show pt taking aspirin 325mg-removed from med chart.
--- NOTE | 2023-11-11 14:16 | CT_ITS ---
WS: [id number] Noncontrast CT LEFT foot TECHNIQUE: Noncontrast CT LEFT foot with coronal and sagittal reformatted images. CLINICAL INFORMATION: fracture/pain swelling COMPARISON: 11/11/2023 radiograph DLP: 164.[address] scans at [facility] use at least one of these dose optimization techniques: automated e xposure control; mA and/or kV adjustment per patient size (includes targeted exams where dose is matc hed to clinical indication); or iterative reconstruction. FINDINGS: Advanced demineralization LEFT foot with Charcot arthropathy. Comminuted fractures involving the firs t and second cuneiforms with disruption of the Lisfranc joint. Additional comminuted fractures involv ing the base of the first metatarsal with intra-articular extension. Additional intra-articular fract ures involving the base of the second third and fourth metatarsal bases. Additional intra-articular f racture involving the fifth metatarsal base. Additional slightly comminuted fracture involving the an terior surface third cuneiform. Tiny fractures involving the anterior inferior and lateral cuboid. Ad vanced degenerative narrowing involving the DIP joints with hammertoe deformities. Heads of the metat arsals appear grossly normal. Degenerative arthritis at the first MTP. Advanced arthritis of the ankle mortise. Lateral malleolus appears intact. Chronic well-corticated fr acture about the tip of the medial malleolus. Talar dome appears intact. Plantar calcaneal spurring. Diffuse mild subcutaneous soft tissue edema more prominent along the dorsal foot. Normal tibial plafo nd. Normal talocalcaneal articulation. CT/CT foot LT wo con* [id number] IMPRESSION: 1. Lisfranc fracture deformity with comminuted fractures involving the first a nd second cuneiforms as well as the bases of the first and second metatarsals. 2. Advanced demineralization. 3. Additional slightly comminuted fractures involving the anterior surfaces of the third cuneiform and cuboid. 4. Additional fractures involving the bases of the third through fifth metatar sals with intra-articular extension. Soft tissue edema worse involving the dors al foot.
--- NOTE | 2023-11-11 15:02 | PC.NURSE ---
attempted to call daughter Sarah, no answer.
--- NOTE | 2023-11-11 15:07 | PC.NURSE ---
called [facility], no answer.
[2023-11-11] MEDS: sodium chloride 0.9% 1,000 ML 999 ML IV (15:33)
--- NOTE | 2023-11-11 15:38 | DCPLANNER ---
messaged podiatry for er f/u
--- NOTE | 2023-11-11 15:45 | PC.NURSE ---
called [facility] to give report, no answer.
--- NOTE | 2023-11-11 15:53 | PC.NURSE ---
called [facility], spoke to Rema to give report, answered questions. pac aware of pt return and dc instructions.
== END 2023-11-11 16:21 | disposition home or self-care (01) ==
PROVIDERS: Emergency Provider Family Medicine; PCP Family Medicine
DX: S92.812A Other fracture of left foot, initial encounter for closed fracture (principal); S92.312A Displaced fracture of first metatarsal bone, left foot, initial encounter for closed fracture; S92.322A Displaced fracture of second metatarsal bone, left foot, initial encounter for closed fracture; E11.621 Type 2 diabetes mellitus with foot ulcer; I73.00 Raynaud's syndrome without gangrene; E11.22 Type 2 diabetes mellitus with diabetic chronic kidney disease; I12.9 Hypertensive chronic kidney disease with stage 1 through stage 4 chronic kidney disease, or unspecified chronic kidney disease; N18.30 Chronic kidney disease, stage 3 unspecified; Z86.73 Personal history of transient ischemic attack (TIA), and cerebral infarction without residual deficits; G35 Multiple sclerosis; Z79.4 Long term (current) use of insulin; Z79.84 Long term (current) use of oral hypoglycemic drugs; X58.XXXA Exposure to other specified factors, initial encounter
CPT/HCPCS: 29515; 36415; 73630; 73700; 80053; 83605; 85025; 87040; 99284; J7030

== ENCOUNTER → 2023-11-18 09:54 | Outpatient (BNVA) | payer MEDICARE, OTHER, SELFPAY | PROVIDERS: PCP Family Medicine; Visit Provider Podiatrist Foot & Ankle Surgery | DX: E11.649 Type 2 diabetes mellitus with hypoglycemia without coma; E11.621 Type 2 diabetes mellitus with foot ulcer; N18.32 Chronic kidney disease, stage 3b; M14.679 Charcot's joint, unspecified ankle and foot; L97.518 Non-pressure chronic ulcer of other part of right foot with other specified severity; Z79.4 Long term (current) use of insulin | CPT/HCPCS: 99204 ==

== ENCOUNTER → 2023-12-01 13:47 | Outpatient (BNVA) | payer MEDICARE, OTHER, MEDICAID, SELFPAY | PROVIDERS: PCP Family Medicine; Visit Provider Podiatrist Foot & Ankle Surgery | DX: E11.610 Type 2 diabetes mellitus with diabetic neuropathic arthropathy; E11.649 Type 2 diabetes mellitus with hypoglycemia without coma; N18.32 Chronic kidney disease, stage 3b; Z79.4 Long term (current) use of insulin | CPT/HCPCS: 73630 ==

== ENCOUNTER 2023-12-01 14:45 | Outpatient (CLI) | payer MEDICARE, OTHER, MEDICAID, SELFPAY | END 2023-12-01 14:46 | disposition home or self-care (01) | LOC: SPT 14:46 | PROVIDERS: PCP Family Medicine; Visit Provider Podiatrist Foot & Ankle Surgery | DX: Z46.89 Encounter for fitting and adjustment of other specified devices (principal); M25.572 Pain in left ankle and joints of left foot | CPT/HCPCS: 97760; L4361 ==

== ENCOUNTER → 2023-12-17 10:54 | Outpatient (BNVA) | payer MEDICARE, OTHER, MEDICAID, SELFPAY | PROVIDERS: PCP Family Medicine; Visit Provider Podiatrist Foot & Ankle Surgery | DX: S92.902A Unspecified fracture of left foot, initial encounter for closed fracture (principal); X58.XXXA Exposure to other specified factors, initial encounter; E11.649 Type 2 diabetes mellitus with hypoglycemia without coma; E11.621 Type 2 diabetes mellitus with foot ulcer; L97.418 Non-pressure chronic ulcer of right heel and midfoot with other specified severity; N18.32 Chronic kidney disease, stage 3b; E11.610 Type 2 diabetes mellitus with diabetic neuropathic arthropathy; Z79.4 Long term (current) use of insulin | CPT/HCPCS: 73630; 99213 ==

== ENCOUNTER → 2024-01-13 15:15 | Outpatient (BNVA) | payer MEDICARE, OTHER, MEDICAID, SELFPAY | PROVIDERS: PCP Family Medicine; Visit Provider Podiatrist Foot & Ankle Surgery | DX: E11.621 Type 2 diabetes mellitus with foot ulcer (principal); L97.514 Non-pressure chronic ulcer of other part of right foot with necrosis of bone; E11.52 Type 2 diabetes mellitus with diabetic peripheral angiopathy with gangrene; E11.649 Type 2 diabetes mellitus with hypoglycemia without coma; E11.22 Type 2 diabetes mellitus with diabetic chronic kidney disease; I96 Gangrene, not elsewhere classified; N18.32 Chronic kidney disease, stage 3b; M14.679 Charcot's joint, unspecified ankle and foot; X58.XXXA Exposure to other specified factors, initial encounter; S91.301A Unspecified open wound, right foot, initial encounter | CPT/HCPCS: 73630 ==

== ENCOUNTER 2024-01-13 15:32 | Inpatient (IN) | payer MEDICARE, OTHER, MEDICAID, SELFPAY ==
[2024-01-13 15:37] VITALS: BP 122/82; PULSE 89; TEMP 36.9; O2SAT 99; BMI 24.6
[2024-01-13 16:10] VITALS: BP 137/83; PULSE 83; RESP 18; O2SAT 98
[2024-01-13 16:32] LABS: Basophils # 0.1 10^3/uL (0.0-0.1); Basophils % 0.4 %; Eosinophils # 0.4 10^3/uL (0.0-0.8); Eosinophils % 3.1 %; Hematocrit 31.1 % (36-47); Lymphocytes # 2.5 10^3/uL (0.8-4.8); Lymphocytes % 21.8 %; Mean Corpuscular HGB Conc 30.9 g/dL (30-55); Mean Corpuscular Hemoglobin 27.1 pg (27-33); Mean Corpuscular Volume 87.9 fl (85-98); Mean Platelet Volume 9.4 fL (7.4-10.4); Monocytes # 1.1 10^3/uL (0.2-0.9); Monocytes % 9.3 %; Neutrophils # 7.43 10^3/uL (1.8-7.7); Neutrophils % 64.8 %; Nucleated Red Blood Cells % 0 %; Platelet Count 554 10^3/cmm (157-399); Red Blood Count 3.54 10^6/uL (3.85-5.65); Red Cell Distribution Width 14.2 % (12.1-15.1); White Blood Count 11.47 10^3/uL (3.29-11.43)
[2024-01-13 16:37] LABS: Erythrocyte Sedimentation Rate 20 mm/hr (0-15)
--- NOTE | 2024-01-13 16:38 | W.ED.EXTPRO ---
HPI - Extremity Problem General: Chief complaint: Extremity Injury, Lower Stated complaint: Dr Caal sent for infected foot Time Seen by Provider: 01/13/24 15:52 Source: patient Mode of arrival: ambulatory Limitations: no limitations History of Present Illness: 73-year-old female who was sent here from Dr. Nuñez podiatry's office with a right diabetic foot ulcer the right lateral portion of her foot. Unknown for how long it has been going on she was at [facility] currently. Patient denies any pain denies any fevers. Associated symptoms: Deny chest pain, fever(s) or rash Related Data Home Medications Medication Instructions Recorded Confirmed gabapentin 300 mg capsule 300 mg PO DAILY 09/11/20 01/13/24 tizanidine 4 mg tablet 4 mg PO Q6H PRN Spasms 09/11/20 01/13/24 aripiprazole 5 mg tablet 5 mg PO DAILY 07/29/22 01/13/24 atenolol 25 mg tablet 25 mg PO DAILY 07/29/22 01/13/24 tramadol 50 mg tablet 50 mg PO DAILY PRN pain/elevated 01/27/23 01/13/24 temp acetaminophen 325 mg tablet 650 mg PO Q6H PRN pain/increased 11/11/23 01/13/24 temp bisacodyl 5 mg tablet,delayed See Rx Instructions .Route 11/11/23 01/13/24 release (Laxative (bisacodyl)) .COMPLEX PRN Constipation celecoxib 200 mg capsule 200 mg PO BID 11/11/23 01/13/24 glimepiride 4 mg tablet 4 mg PO BID 11/11/23 01/13/24 insulin aspart U-100 100 unit/mL See Rx Instructions .Route .COMPLEX 11/11/23 01/13/24 (3 mL) subcutaneous pen (Novolog FlexPen U-100 Insulin aspart) insulin glargine 100 unit/mL (3 10 unit SUBCUT BEDTIME 11/11/23 01/13/24 mL) subcutaneous pen (Lantus Solostar U-100 Insulin) levothyroxine 25 mcg tablet 25 mcg PO DAILY 11/11/23 01/13/24 magnesium hydroxide 400 mg/5 mL See Rx Instructions .Route 11/11/23 01/13/24 oral suspension (Milk of Magnesia) .COMPLEX PRN Constipation Previous Rx's Medication Instructions Recorded amlodipine 5 mg tablet 5 mg PO DAILY #90 tabs 04/09/21 venlafaxine 150 mg 150 mg PO DAILY #90 caps 01/28/22 capsule,extended release 24 hr hydrocodone 5 mg-acetaminophen 325 1 tab PO Q6H PRN pain #12 tabs 11/11/23 mg tablet losartan 100 mg tablet 100 mg PO DAILY #30 tabs 11/11/23 Pravo boot #1 ea 11/18/23 CAM boot #1 ea 12/01/23 [place] boot #1 ea 12/01/23 Allergies Allergy/AdvReac Type Severity Reaction Status Date / Time No Known Allergies Allergy Verified 01/13/24 15:45 Review of Systems Const: Denies: fever(s), chills, body aches or change in appetite ENMT: Denies: throat pain or dental pain Card: Denies: chest pain Resp: Denies: dyspnea GI: Denies: abdominal pain, nausea, vomiting or diarrhea Musc: Reports: extremity pain and extremity swelling; Denies: neck pain or back pain Skin/Breast: Denies: rash Neuro: Denies: headache(s) PFSH ED PFSH: Medical History CKD (chronic kidney disease) stage 3, GFR 30-59 ml/min Raynauds disease Intertrochanteric fracture of left hip Chronic kidney disease CVA (cerebral vascular accident) Hypertension Depression RLS (restless legs syndrome) Hypothyroidism Dysphagia Neuropathy of both feet Multiple sclerosis Essential (primary) hypertension Diabetes mellitus type 2, uncontrolled Surgical History History of surgery on right wrist History of surgery on left wrist History of esophagogastroduodenoscopy (EGD) History of colonoscopy History of back surgery Family History Other Cancer Epilepsy Hypertension Social History Smoking and tobacco/nicotine status: unknown if used tobacco/nicotine Alcohol intake: current Alcohol intake frequency: few times a month Physical Exam Const: COMMON NORMALS: no acute distress, patient oriented x3 and healthy appearing HENMT: COMMON NORMALS: normocephalic and atraumatic HEAD & SCALP: normocephalic and atraumatic Neck/C-Spine: COMMON NORMALS: full ROM and supple Chest: COMMONS NORMALS: normal inspection of the chest Resp: COMMON NORMALS: normal respiratory effort GI: COMMON NORMALS: Normal to inspection, nondistended, normoactive bowel sounds present, Soft to palpation, non-tender and no masses PALPATION: Yes Soft to palpation Extremity: COMMON NORMALS: full ROM NARRATIVE EXTREMITY EXAM: Large ulcer to the right lateral portion of her foot with slight erythema Neuro: COMMON NORMALS: patient oriented x3, moves all extremities and no focal motor deficits Psych: COMMON NORMALS: mental status grossly normal, Normal thought process present and cooperative THOUGHT PROCESS: Normal thought process present Skin: COMMON NORMALS: no rashes or lesions noted and no wounds GENERAL SKIN EXAM: no rashes or lesions noted Course Vital Signs: Vital signs: Vital Signs Temperature 98.5 F 01/13/24 15:37 Pulse Rate 83 01/13/24 16:10 Respiratory Rate 18 01/13/24 16:10 Blood Pressure 137/83 01/13/24 16:10 Pulse Oximetry 98 01/13/24 16:10 Oxygen Delivery Me thod Room Air 01/13/24 16:10 MDM - Extremity (Nontraumatic) Medical Decision Making Patient presents with likely diabetic foot ulcer with likely cellulitis I spoke to sales representative wire rope who is plan on taking her to the OR either today or tomorrow will start antibiotics spoke to hospitalist who will admit as well. Lab Data I reviewed the patient's lab results. 01/13/24 16:25 01/13/24 16:25 Laboratory Results WBC 11.47 10^3/uL (3.29-11.43) H 01/13/24 16:25 RBC 3.54 10^6/uL (3.85-5.65) L 01/13/24 16:25 Hgb 9.60 g/dL (11.27-16.99) L 01/13/24 16:25 Hct 31.1 % (36-47) L 01/13/24 16:25 MCV 87.9 fl (85-98) 01/13/24 16:25 MCH 27.1 pg (27-33) 01/13/24 16:25 MCHC 30.9 g/dL (30-55) 01/13/24 16:25 RDW 14.2 % (12.1-15.1) 01/13/24 16:25 Plt Count 554 10^3/cmm (157-399) H 01/13/24 16:25 MPV 9.4 fL (7.4-10.4) 01/13/24 16:25 Neut % (Auto) 64.8 % 01/13/24 16:25 Lymph % (Auto) 21.8 % 01/13/24 16:25 [place] % (Auto) 9.3 % 01/13/24 16:25 Eos % (Auto) 3.1 % 01/13/24 16:25 Baso % (Auto) 0.4 % 01/13/24 16:25 Neut # (Auto) 7.43 10^3/uL (1.8-7.7) 01/13/24 16:25 Lymph # (Auto) 2.5 10^3/uL (0.8-4.8) 01/13/24 16:25 [place] # (Auto) 1.1 10^3/uL (0.2-0.9) H 01/13/24 16:25 Eos # (Auto) 0.4 10^3/uL (0.0-0.8) 01/13/24 16:25 Baso # (Auto) 0.1 10^3/uL (0.0-0.1) 01/13/24 16:25 Nucleated RBC % (auto) 0 % 01/13/24 16:25 Nucleated RBCs # 0.0 /100WBC 01/13/24 16:25 ESR 20 mm/hr (0-15) H 01/13/24 16:25 XR interpretation done by ED provider, pending radiology final review Discharge Plan Discharge Patient Disposition: Admitted As Inpatient Clinical Impression: Diabetic ulcer of foot associated with diabetes mellitus due to underlying condition, with necrosis of bone, Diabetic wet gangrene of the foot Condition: Stable Prescriptions: No Action tramadol 50 mg tablet 50 mg PO DAILY PRN (Reason: pain/elevated temp) (DME) Pravo boot See Rx Instructions .Route .MEDSUPPLY Qty: 1 0RF Rx Instructions: As directed to HOME (DME) CAM boot See Rx Instructions .Route .MEDSUPPLY Qty: 1 0RF Rx Instructions: As directed (DME) lawanda wiseman See Rx Instructions .Route .MEDSUPPLY Qty: 1 0RF Rx Instructions: As directed to the meño oliva amlodipine 5 mg tablet 5 mg PO DAILY Qty: 90 3RF venlafaxine 150 mg capsule,extended release 24hr 150 mg PO DAILY Qty: 90 3RF tizanidine 4 mg Tablet 4 mg PO Q6H PRN (Reason: Spasms) gabapentin 300 mg Capsule 300 mg PO DAILY atenolol 25 mg tablet 25 mg PO DAILY aripiprazole 5 mg tablet 5 mg PO DAILY celecoxib 200 mg capsule 200 mg PO BID acetaminophen 325 mg Tablet 650 mg PO Q6H PRN (Reason: pain/increased temp) levothyroxine 25 mcg tablet 25 mcg PO DAILY Milk of Magnesia 400 mg/5 mL Suspension See Rx Instructions .ROUTE .COMPLEX PRN (Reason: Constipation) Rx Instructions: Take 30 mL by mouth every 72 hours as needed if no bm in 3 days. glimepiride 4 mg tablet 4 mg PO BID Laxative (bisacodyl) 5 mg tablet,delayed release (DR/EC) See Rx Instructions .ROUTE .COMPLEX PRN (Reason: Constipation) Rx Instructions: Take 2 tablets (10 mg) by mouth as needed for constipation if no results from Milk of Mag. Novolog FlexPen U-100 Insulin 100 unit/mL (3 mL) insulin pen See Rx Instructions .ROUTE .COMPLEX Rx Instructions: Give before meals and at bedtime per sliding scale: If bs is less than 60, call MD. Bs 150-200=3 units, bs 201-250=5 units, bs 251-300=7 units, bs 301-350=9 units, bs 351-400=10 units. bs greater than 400 call MD. Lantus Solostar U-100 Insulin 100 unit/mL (3 mL) insulin pen 10 unit SUBCUT BEDTIME hydrocodone-acetaminophen 5-325 mg tablet 1 tab PO Q6H PRN (Reason: pain) Qty: 12 0RF losartan 100 mg tablet 100 mg PO DAILY Qty: 30 0RF Referrals: Marcy Johnson MD [Primary Care Provider] - Coding Level of Care Code ED Metal Bonding Crib Attendant for Kelly Sam
[2024-01-13 16:51] LABS: Alanine Aminotransferase 8 U/L (0-33); Albumin Level 3.5 g/dL (3.5-5.2); Alkaline Phosphatase 158 U/L (35-105); Anion Gap 15.5 (5-19); Aspartate Amino Transferase 12 U/L (0-32); Blood Urea Nitrogen 26 mg/dL (8-23); C Reactive Protein 79.2 mg/L (0.0-4.9); Calcium 8.1 mg/dL (8.5-10.5); Carbon Dioxide 25 mmol/L (22-29); Chloride 101 mmol/L (98-107); Creatinine Clr Calc Pharmacy 19.9002; Globulin 3.5 g/dL (1.3-4.6); Glucose 152 mg/dL (65-115); Osmolality Calculated 290 mOsm/kg (285-295); Potassium 5.5 mmol/L (3.5-5.1); Sodium 136 mmol/L (136-145); Total Bilirubin 0.2 mg/dL (0.15-1.2)
--- NOTE | 2024-01-13 16:58 | P.CONIM_ITS ---
Providers/Reason For Consult 2 Consulting Physician/Specialty*: Dr. Dima Caal, Dilshad.P.M./podiatry Reason for Consult*: Right foot wet gangrene Attending Physician: Navjot Colvin DO Primary Care Provider: Marcy Johnson MD History of Present Illness History of Present Illness Gia Clement is a 73 year old female who was seen earlier today in podiatry clinic. Patient is a resident of [facility]. Over the course the past 3 to 4 weeks she has developed a full-thickness ulceration to the lateral aspect of the right foot which now has bone involvement and significant soft tissue necrosis. After being evaluated in podiatry clinic she was sent to the emergency department for further workup admission and surgical debridement. Review of Systems 2 General: Reports: 10 or more systems reviewed and unremarkable except in HPI and below Const: Denies: fever(s), chills, body aches or change in appetite Eyes: Denies: change in vision or blurry vision Card: Denies: chest pain, palpitations or irregular heart rhythm Resp: Denies: dyspnea GI: Denies: abdominal pain, nausea, vomiting or diarrhea Musc: Reports: joint stiffness Skin/Breast: Reports: non-healing lesions and lesions Neuro: Reports: numbness in extremities Medications/Allergies Home Medications Medication Instructions Recorded Confirmed Last Taken Type gabapentin 300 mg capsule 300 mg PO DAILY 09/11/20 01/14/24 01/13/24 History tizanidine 4 mg tablet 4 mg PO Q6H PRN Spasms 09/11/20 01/14/24 12/16/23 History amlodipine 5 mg tablet 5 mg PO DAILY #90 tabs 04/09/21 01/14/24 01/13/24 Rx venlafaxine 150 mg 150 mg PO DAILY #90 caps 01/28/22 01/14/24 01/13/24 Rx capsule,extended release 24 hr aripiprazole 5 mg tablet 5 mg PO DAILY 07/29/22 01/14/24 01/13/24 History atenolol 25 mg tablet 25 mg PO DAILY 07/29/22 01/14/24 01/13/24 History tramadol 50 mg tablet 50 mg PO DAILY PRN pain/elevated 01/27/23 01/14/24 11/09/23 History temp acetaminophen 325 mg tablet 650 mg PO Q6H PRN pain/increased 11/11/23 01/14/24 12/24/23 History temp bisacodyl 5 mg tablet,delayed See Rx Instructions .Route 11/11/23 01/14/24 10/06/23 History release (Laxative (bisacodyl)) .COMPLEX PRN Constipation celecoxib 200 mg capsule 200 mg PO BID 11/11/23 01/14/24 01/13/24 History glimepiride 4 mg tablet 4 mg PO BID 11/11/23 01/14/24 11/11/23 History hydrocodone 5 mg-acetaminophen 325 1 tab PO Q6H PRN pain #12 tabs 11/11/23 01/14/24 01/09/24 Rx mg tablet insulin aspart U-100 100 unit/mL See Rx Instructions .Route .COMPLEX 11/11/23 01/14/24 12/27/23 History (3 mL) subcutaneous pen (Novolog FlexPen U-100 Insulin aspart) insulin glargine 100 unit/mL (3 10 unit SUBCUT BEDTIME 11/11/23 01/14/24 12/27/23 History mL) subcutaneous pen (Lantus Solostar U-100 Insulin) levothyroxine 25 mcg tablet 25 mcg PO DAILY 11/11/23 01/14/24 01/13/24 History losartan 100 mg tablet 100 mg PO DAILY #30 tabs 11/11/23 01/14/24 01/13/24 Rx magnesium hydroxide 400 mg/5 mL See Rx Instructions .Route 11/11/23 01/14/24 Unknown History oral suspension (Milk of Magnesia) .COMPLEX PRN Constipation Pravo boot #1 ea 11/18/23 01/14/24 Unknown Rx CAM boot #1 ea 12/01/23 01/14/24 Unknown Rx [place] boot #1 ea 12/01/23 01/14/24 Unknown Rx furosemide 40 mg tablet 40 mg PO DAILY 01/14/24 01/14/24 01/13/24 History honey 80 % topical gel (MediHoney 1 applic topical DAILY 01/14/24 01/14/24 01/07/24 History (honey)) magnesium sulfate (laxative) 495 1 applic topical DAILY 01/14/24 01/14/24 01/11/24 History mg/5 gram oral granules (Epsom Salt (laxative)) potassium chloride 20 mEq 20 meq PO DAILY 01/14/24 01/14/24 01/13/24 History tablet,extended release sulfamethoxazole 800 1 tab PO DAILY 01/14/24 01/14/24 01/13/24 History mg-trimethoprim 160 mg tablet Allergies Allergy/AdvReac Type Severity Reaction Status Date / Time No Known Allergies Allergy Verified 01/13/24 15:45 PFSH Acute 2 PFSH: Medical History CKD (chronic kidney disease) stage 3, GFR 30-59 ml/min Raynauds disease Intertrochanteric fracture of left hip Chronic kidney disease CVA (cerebral vascular accident) Hypertension Depression RLS (restless legs syndrome) Hypothyroidism Dysphagia Neuropathy of both feet Multiple sclerosis Essential (primary) hypertension Diabetes mellitus type 2, uncontrolled Surgical History History of surgery on right wrist History of surgery on left wrist History of esophagogastroduodenoscopy (EGD) History of colonoscopy History of back surgery Family History Other Cancer Epilepsy Hypertension Social History Smoking and tobacco/nicotine status: unknown if used tobacco/nicotine Alcohol intake: current Alcohol intake frequency: few times a month Vitals/I&O/Wt Last Vital Signs Temp 98.5 F 01/13/24 15:37 Pulse 83 01/13/24 16:10 Resp 18 01/13/24 16:10 BP 137/83 01/13/24 16:10 Pulse Ox 98 01/13/24 16:10 O2 Del Method Room Air 01/13/24 16:10 Weight last 48 hrs Weight 167 lb Physical Exam 2 Narrative: EXAM NARRATIVE: LOWER EXTREMITY EXAMINATION DERMATOLOGICAL: - Full thickness ulceration on the lateral aspect of the right foot, overlaying the 5th metatarsal. - Active purulent drainage noted. - Surrounding erythema tracking up to the ankle joint and over to the dorsum of the foot medially. -Right foot full-thickness ulceration measures 6.8 x 2.5 x 0.8 cm with positive probe to bone MUSCULOSKELETAL: - Concern for osteomyelitis in the pinky toe with probable bone infection. IMAGING: - X-rays of the right foot: Indicative of areas of air, suggesting the presence of a gas-producing organism. Erosive changes to the lateral aspect of fifth metatarsal head consistent with osteomyelitis. LABORATORY: - Cultures: Taken to identify bacterial growth, specific results pending. Data 01/14/24 05:15 01/14/24 05:15 A&P Assessment and plan (1) Diabetic ulcer of foot associated with diabetes mellitus due to underlying condition, with necrosis of bone: (2) Diabetic foot ulcer associated with type 2 diabetes mellitus: (3) Diabetic wet gangrene of the foot: Plan -Right foot wet gangrene -Labs and vitals reviewed -WBC 11.47 -ESR 20 -CRP 79 -VSS -Cultures wound cultures obtained in clinic pending -Abx Vanco/Zosyn -Diet: N.p.o. at midnight for procedure 01/14/24 -Pain Mgmt: Per primary team -Weight bearing: Weightbearing to right foot for transfers only -Dressings: Betadine wet-to-dry -Continue current Abx therapy until ID and Sensitivity results -Trend labs -Discharge plan: To be determined -Podiatry will continue to round on patient daily and provide recommendations Coding Level of Care Code Acute Code for [facility] Diagnoses Diabetic ulcer of foot associated with diabetes mellitus due to underlying condition, with necrosis of bone E08.621; L97.504 Diabetic foot ulcer associated with type 2 diabetes mellitus E11.621; L97.509 Diabetic wet gangrene of the foot E11.52
[2024-01-13 17:02] VITALS: BMI 24.6
--- NOTE | 2024-01-13 17:02 | PC.NURSE ---
pt report called to [facility] Med surg at 1700.
[2024-01-13 17:08] VITALS: BP 137/83; PULSE 85; RESP 16; O2SAT 100
--- NOTE | 2024-01-13 17:13 | PM.HP ---
Providers/Chief Complaint Admitting Physician: Navjot Colvin DO Primary Care Provider: Marcy Johnson MD Chief Complaint: Dr Caal sent for infected foot History of Present Illness Gia Clement is a 73 year old female with past medical history significant for diabetes mellitus, multiple sclerosis, hypertension and dementia who has been residing at [facility] correction since her at the end of the summer. She has a Charcot joint of the left foot that currently has her in a boot. She was following up with Dr. Ramirez in his office today when they found a wound infection of the right fifth metatarsal Dr. Ramirez plans to take the patient to the OR for fifth metatarsal ray resection and debridement. It was noted that the nursing facility started patient on Bactrim on 01/11/2024. Patient family did not know extent of infection and whether the patient's wound was improving or getting worse in the last couple of days. Review of Systems Const: Denies: fever(s) or chills Eyes: Denies: change in vision ENMT: Denies: throat pain or nasal congestion Card: Denies: chest pain or palpitations Resp: Denies: dyspnea or productive cough GI: Denies: abdominal pain, nausea, vomiting or change in stool character : Denies: dysuria Musc: Reports: extremity swelling; Denies: back pain or extremity pain Skin/Breast: Denies: rash or lesions Neuro: Denies: headache(s) or dizziness Psych: Denies: anxiety or depression Qamar/Lymph: Denies: easy bruising or easy bleeding Medications/Allergies Home Medications Medication Instructions Recorded Confirmed Last Taken Type gabapentin 300 mg capsule 300 mg PO DAILY 09/11/20 01/13/24 11/10/23 History tizanidine 4 mg tablet 4 mg PO Q6H PRN Spasms 09/11/20 01/13/24 11/09/23 History amlodipine 5 mg tablet 5 mg PO DAILY #90 tabs 04/09/21 01/13/24 11/11/23 Rx venlafaxine 150 mg 150 mg PO DAILY #90 caps 01/28/22 01/13/24 11/11/23 Rx capsule,extended release 24 hr aripiprazole 5 mg tablet 5 mg PO DAILY 07/29/22 01/13/24 11/11/23 History atenolol 25 mg tablet 25 mg PO DAILY 07/29/22 01/13/24 11/11/23 History tramadol 50 mg tablet 50 mg PO DAILY PRN pain/elevated 01/27/23 01/13/24 11/09/23 History temp acetaminophen 325 mg tablet 650 mg PO Q6H PRN pain/increased 11/11/23 01/13/24 11/10/23 History temp bisacodyl 5 mg tablet,delayed See Rx Instructions .Route 11/11/23 01/13/24 10/06/23 History release (Laxative (bisacodyl)) .COMPLEX PRN Constipation celecoxib 200 mg capsule 200 mg PO BID 11/11/23 01/13/24 11/11/23 History glimepiride 4 mg tablet 4 mg PO BID 11/11/23 01/13/24 11/11/23 History hydrocodone 5 mg-acetaminophen 325 1 tab PO Q6H PRN pain #12 tabs 11/11/23 01/13/24 Unknown Rx mg tablet insulin aspart U-100 100 unit/mL See Rx Instructions .Route .COMPLEX 11/11/23 01/13/24 11/11/23 History (3 mL) subcutaneous pen (Novolog FlexPen U-100 Insulin aspart) insulin glargine 100 unit/mL (3 10 unit SUBCUT BEDTIME 11/11/23 01/13/24 11/10/23 History mL) subcutaneous pen (Lantus Solostar U-100 Insulin) levothyroxine 25 mcg tablet 25 mcg PO DAILY 11/11/23 01/13/24 11/11/23 History losartan 100 mg tablet 100 mg PO DAILY #30 tabs 11/11/23 01/13/24 Unknown Rx magnesium hydroxide 400 mg/5 mL See Rx Instructions .Route 11/11/23 01/13/24 Unknown History oral suspension (Milk of Magnesia) .COMPLEX PRN Constipation Pravo boot #1 ea 11/18/23 01/13/24 Unknown Rx CAM boot #1 ea 12/01/23 01/13/24 Unknown Rx [place] boot #1 ea 12/01/23 01/13/24 Unknown Rx Allergies Allergy/AdvReac Type Severity Reaction Status Date / Time No Known Allergies Allergy Verified 01/13/24 15:45 PFSH Acute PFSH: Medical History CKD (chronic kidney disease) stage 3, GFR 30-59 ml/min Raynauds disease Intertrochanteric fracture of left hip Chronic kidney disease CVA (cerebral vascular accident) Hypertension Depression RLS (restless legs syndrome) Hypothyroidism Dysphagia Neuropathy of both feet Multiple sclerosis Essential (primary) hypertension Diabetes mellitus type 2, uncontrolled Surgical History History of surgery on right wrist History of surgery on left wrist History of esophagogastroduodenoscopy (EGD) History of colonoscopy History of back surgery Family History Other Cancer Epilepsy Hypertension Social History Smoking and tobacco/nicotine status: unknown if used tobacco/nicotine Alcohol intake: current Alcohol intake frequency: few times a month Vitals/I&O/Wt Last Vital Signs Temp 98.5 F 01/13/24 15:37 Pulse 85 01/13/24 17:08 Resp 16 01/13/24 17:08 BP 137/83 01/13/24 17:08 Pulse Ox 100 01/13/24 17:08 O2 Del Method Room Air 01/13/24 16:10 Weight last 48 hrs Weight 75.75 kg Physical Exam Narrative: Alert oriented to self only no acute distress HEENT head is normocephalic atraumatic pupils equal round and reactive to light and accommodation extraocular muscles are intact nasopharyngeal mucosa moist and pink patient wears upper dentures no lower dentures neck is supple no JVD carotid bruits or lymphadenopathy Heart is regular normal S1-S2 without murmurs clicks gallops or rubs lungs are clear to auscultations without wheezes rales or rhonchi Abdomen is soft nontender nondistended positive bowel sounds Extremities right lower extremity with edema to knee. Large open wound on the lateral aspect around the fifth metatarsal joint open wound malodorous with significant erythema. Left foot in a boot from Charcot joint Back no significant kyphosis scoliosis no CVA tenderness Neuro nonfocal exam Psych mood and affect appropriate Skin no other lesions or rashes noted other than described above Data 01/13/24 16:25 01/13/24 16:25 A&P Assessment and plan (1) Diabetic wet gangrene of the foot: (2) Diabetic ulcer of foot associated with diabetes mellitus due to underlying condition, with necrosis of bone: (3) Charcot arthropathy of midfoot: (4) Multiple sclerosis: (5) Diabetes mellitus type 2, uncontrolled: Qualifiers: Glycemic state: with hypoglycemia Coma presence: without coma Qualified Code(s): E11.649 - Type 2 diabetes mellitus with hypoglycemia without coma (6) Essential (primary) hypertension: Plan Patient is being admitted to the hospital for wet gangrene of right fifth metatarsal patient is seen by Dr. Ramirez who will perform surgery tomorrow with anticipated ray resection and debridement. Patient will be placed on Zosyn and vancomycin for antibiotic coverage patient will be n.p.o. after midnight Home medications continued except for oral diabetic medications will use insulin per sliding scale since patient will be n.p.o. Attestations Medical Necessity Statement*: Patient requires a 2 midnight stay due to wet gangrene of the right foot requiring amputation debridement and IV antibiotics Coding Level of Care Code Acute Code for [facility] Diagnoses Diabetic wet gangrene of the foot E11.52 Diabetic ulcer of foot associated with diabetes mellitus due to underlying condition, with necrosis of bone E08.621; L97.504 Charcot arthropathy of midfoot M14.679 Multiple sclerosis G35 Uncontrolled type 2 diabetes mellitus with hypoglycemia without coma E11.649 Glycemic state: with hypoglycemia Coma presence: without coma Essential (primary) hypertension I10
[2024-01-13] MEDS: VANCOMYCIN ADD-Vantage 1,000 MG in 0.9% NaCl ADD-Vantage 250 ML 250 MG IV ×2 (17:55→19:06)
[2024-01-13 18:03] LABS: Glucose Point of Care 121 mg/dL (70-110)
--- NOTE | 2024-01-13 18:06 | PHA.VACGOAL ---
Vancomycin Goal - Goal Vancomycin Goal:: 15-20 mg/L Vancomycin Indication:: Osteo - Therapy Current therapy:: Pip/Tazo Day of therpy:: Day [1]of [] . Actual body weight (kg): 75.75 kg - Data Labs: WBC 11.47 10^3/uL (3.29-11.43) H 01/13/24 16:25 RBC 3.54 10^6/uL (3.85-5.65) L 01/13/24 16:25 Hgb 9.60 g/dL (11.27-16.99) L 01/13/24 16:25 Hct 31.1 % (36-47) L 01/13/24 16:25 MCV 87.9 fl (85-98) 01/13/24 16:25 MCH 27.1 pg (27-33) 01/13/24 16:25 MCHC 30.9 g/dL (30-55) 01/13/24 16:25 RDW 14.2 % (12.1-15.1) 01/13/24 16:25 Sodium 136 mmol/L (136-145) 01/13/24 16:25 Potassium 5.5 mmol/L (3.5-5.1) H 01/13/24 16:25 Chloride 101 mmol/L (98-107) 01/13/24 16:25 Carbon Dioxide 25 mmol/L (22-29) 01/13/24 16:25 Anion Gap 15.5 (5-19) 01/13/24 16:25 BUN 26 mg/dL (8-23) H 01/13/24 16:25 Creatinine 2.7 mg/dL (0.5-0.9) H 01/13/24 16:25 GFR Calculation Not Reportable 01/13/24 16:25 Treatment plan:: new consult Regimen:: Patient is being treated for osteomyletis of right fifth metatarsal. 1000 mg ordered in the ED. An additional 1000 mg ordered for a load dose of 2000 mg. Patient's calculated CrCl is <30 mL/min. Vancomycin trough ordered for 01/14/24 @1900. Pharmacy will continue to monitor.
[2024-01-13 20:00] VITALS: BP 135/72; PULSE 102; RESP 17; TEMP 36.9; O2SAT 96
[2024-01-13] MEDS: piperacillin-tazobactam 3.375 GM in sodium chloride 0.9% (plus) 50 ML IV (20:55)
[2024-01-13 21:35] LABS: Glucose Point of Care 181 mg/dL (70-110)
[2024-01-14] VITALS (17 sets, daily range): BP systolic 119–153; BP diastolic 70–97; PULSE 91–109; RESP 14–22; TEMP 36.3–37.6; O2SAT 93–99
[2024-01-14 05:34] LABS: Basophils # 0.1 10^3/uL (0.0-0.1); Basophils % 0.8 %; Eosinophils # 0.4 10^3/uL (0.0-0.8); Eosinophils % 4.6 %; Hematocrit 27.1 % (36-47); Lymphocytes # 2.4 10^3/uL (0.8-4.8); Lymphocytes % 27.5 %; Mean Corpuscular Hemoglobin 27.5 pg (27-33); Mean Corpuscular Volume 88.6 fl (85-98); Mean Platelet Volume 9.6 fL (7.4-10.4); Monocytes # 0.8 10^3/uL (0.2-0.9); Monocytes % 9.6 %; Neutrophils % 57.1 %; Nucleated Red Blood Cells % 0 %; Platelet Count 511 10^3/cmm (157-399); Red Blood Count 3.06 10^6/uL (3.85-5.65); Red Cell Distribution Width 14.5 % (12.1-15.1); White Blood Count 8.56 10^3/uL (3.29-11.43)
[2024-01-14 05:51] LABS: Anion Gap 16.2 (5-19); Blood Urea Nitrogen 26 mg/dL (8-23); Calcium 7.7 mg/dL (8.5-10.5); Carbon Dioxide 21 mmol/L (22-29); Chloride 105 mmol/L (98-107); Creatinine Clr Calc Pharmacy 20.8316; Glucose 151 mg/dL (65-115); Osmolality Calculated 292 mOsm/kg (285-295); Potassium 5.2 mmol/L (3.5-5.1); Sodium 137 mmol/L (136-145)
[2024-01-14] MEDS: piperacillin-tazobactam 3.375 GM in sodium chloride 0.9% (plus) 50 ML IV ×2 (07:59→20:19)
[2024-01-14 09:10] LABS: Glucose Point of Care 137 mg/dL (70-110)
--- NOTE | 2024-01-14 10:14 | PC.SOCIAL ---
IMM Update pg 2 of IMM updated and reviewed w/ patient. Copy provided and copy dated, initialed and placed in chart.
[2024-01-14 10:53] LABS: Glucose Point of Care 133 mg/dL (70-110)
--- NOTE | 2024-01-14 11:55 | P.PN_ITS ---
Subjective 2 Subjective: Patient is hungry. No other new complaints 2 daughters at bedside. No new complain ts Vitals/I&O/Wt Last Vital Signs Temp 98.4 F 01/14/24 07:40 Pulse 99 01/14/24 07:40 Resp 15 01/14/24 07:40 BP 124/75 01/14/24 07:40 Pulse Ox 95 01/14/24 07:40 O2 Del Method Room Air 01/14/24 07:40 01/13/24 01/14/24 01/14/24 22:59 06:59 14:59 Intake Total 500 / 500 50 / 550 Balance 500 / 500 50 / 550 Weight last 48 hrs Weight 77.156 kg Weight 75.75 kg Weight 75.75 kg Physical Exam 2 Narrative: Alert oriented to self Heart regular normal S1-S2 without loud murmur click gallop or rub Lungs clear to auscultation without wheezes rales or rhonchi Abdomen soft nontender nondistended positive bowel sounds Extremities: Left foot in boot right foot wrapped about to go to surgery. Data 01/14/24 05:15 01/14/24 05:15 Micro: Microbiology 01/13/24 19:35 Blood Culture - Preliminary Blood SPECIMEN COLLECTED 01/13/24 19:30 Blood Culture - Preliminary Blood SPECIMEN COLLECTED A&P Assessment and plan (1) Diabetic wet gangrene of the foot: (2) Diabetic ulcer of foot associated with diabetes mellitus due to underlying condition, with necrosis of bone: (3) Charcot arthropathy of midfoot: (4) Multiple sclerosis: (5) Diabetes mellitus type 2, uncontrolled: Qualifiers: Glycemic state: with hypoglycemia Coma presence: without coma Qualified Code(s): E11.649 - Type 2 diabetes mellitus with hypoglycemia without coma (6) Essential (primary) hypertension: Plan Continue Zosyn and vancomycin Hold oral diabetic medications May start sliding scale insulin postoperatively and restart Lantus tomorrow evening OR today Attestations 2 Medical Necessity Statement*: Patient requires a 2 midnight stay due to wet gangrene of the right foot requiring amputation debridement and IV antibiotics Coding Level of Care Code Acute Code for [facility] Diagnoses Diabetic wet gangrene of the foot E11.52 Diabetic ulcer of foot associated with diabetes mellitus due to underlying condition, with necrosis of bone E08.621; L97.504 Charcot arthropathy of midfoot M14.679 Multiple sclerosis G35 Uncontrolled type 2 diabetes mellitus with hypoglycemia without coma E11.649 Glycemic state: with hypoglycemia Coma presence: without coma Essential (primary) hypertension I10
--- NOTE | 2024-01-14 12:24 | ANES.PREANE2 ---
Pre-Anesthetic Assessment Height/Weight: Height 1.75 m Weight 77.156 kg Temp Pulse Resp BP Pulse Ox O2 Del Method 98.8 F 100 15 131/76 96 Room Air 01/14/24 12:00 01/14/24 12:00 01/14/24 12:00 01/14/24 12:00 01/14/24 12:00 01/14/24 12:00 Operation Date: 01/14/24 12:40 Proposed Procedures p Incision And Drainage(Right) - Dima Caal DPM Familial anesthetic complications: None Was Beta Rhainna taken within 24 hours: Yes Was Clonidine taken within 24 hours: N/A Last intake: Intake Last Liquid Date 01/13/24 Last Liquid Time 23:30 Last Solid Date 01/13/24 Last Solid Time 20:00 Social No alcohol and No tobacco Exam alert, oriented x 3, clear to auscultation bilaterally and regular rate & rhythm Airway Mallampati: Class II CV/HEM Hypertension Chronic Renal Insufficiency Metabolic Diabetes Mellitus and Thyroid Disease Neuropsych Cerebrovascular Accident MS Anesthetic Plan ASA status: 3 Anesthesia: Choice Risk of > 500 ml blood loss (7ml/kg in children): No Medications/Allergies Home Medications Medication Instructions Recorded Confirmed Last Taken Type gabapentin 300 mg capsule 300 mg PO DAILY 09/11/20 01/14/24 01/13/24 History tizanidine 4 mg tablet 4 mg PO Q6H PRN Spasms 09/11/20 01/14/24 12/16/23 History amlodipine 5 mg tablet 5 mg PO DAILY #90 tabs 04/09/21 01/14/24 01/13/24 Rx venlafaxine 150 mg 150 mg PO DAILY #90 caps 01/28/22 01/14/24 01/13/24 Rx capsule,extended release 24 hr aripiprazole 5 mg tablet 5 mg PO DAILY 07/29/22 01/14/24 01/13/24 History atenolol 25 mg tablet 25 mg PO DAILY 07/29/22 01/14/24 01/13/24 History tramadol 50 mg tablet 50 mg PO DAILY PRN pain/elevated 01/27/23 01/14/24 11/09/23 History temp acetaminophen 325 mg tablet 650 mg PO Q6H PRN pain/increased 11/11/23 01/14/24 12/24/23 History temp bisacodyl 5 mg tablet,delayed See Rx Instructions .Route 11/11/23 01/14/24 10/06/23 History release (Laxative (bisacodyl)) .COMPLEX PRN Constipation celecoxib 200 mg capsule 200 mg PO BID 11/11/23 01/14/24 01/13/24 History glimepiride 4 mg tablet 4 mg PO BID 11/11/23 01/14/24 11/11/23 History hydrocodone 5 mg-acetaminophen 325 1 tab PO Q6H PRN pain #12 tabs 11/11/23 01/14/24 01/09/24 Rx mg tablet insulin aspart U-100 100 unit/mL See Rx Instructions .Route .COMPLEX 11/11/23 01/14/24 12/27/23 History (3 mL) subcutaneous pen (Novolog FlexPen U-100 Insulin aspart) insulin glargine 100 unit/mL (3 10 unit SUBCUT BEDTIME 11/11/23 01/14/24 12/27/23 History mL) subcutaneous pen (Lantus Solostar U-100 Insulin) levothyroxine 25 mcg tablet 25 mcg PO DAILY 11/11/23 01/14/24 01/13/24 History losartan 100 mg tablet 100 mg PO DAILY #30 tabs 11/11/23 01/14/24 01/13/24 Rx magnesium hydroxide 400 mg/5 mL See Rx Instructions .Route 11/11/23 01/14/24 Unknown History oral suspension (Milk of Magnesia) .COMPLEX PRN Constipation Pravo boot #1 ea 11/18/23 01/14/24 Unknown Rx CAM boot #1 ea 12/01/23 01/14/24 Unknown Rx [place] boot #1 ea 12/01/23 01/14/24 Unknown Rx furosemide 40 mg tablet 40 mg PO DAILY 01/14/24 01/14/24 01/13/24 History honey 80 % topical gel (MediHoney 1 applic topical DAILY 01/14/24 01/14/24 01/07/24 History (honey)) magnesium sulfate (laxative) 495 1 applic topical DAILY 01/14/24 01/14/24 01/11/24 History mg/5 gram oral granules (Epsom Salt (laxative)) potassium chloride 20 mEq 20 meq PO DAILY 01/14/24 01/14/24 01/13/24 History tablet,extended release sulfamethoxazole 800 1 tab PO DAILY 01/14/24 01/14/24 01/13/24 History mg-trimethoprim 160 mg tablet Allergies Allergy/AdvReac Type Severity Reaction Status Date / Time No Known Allergies Allergy Verified 01/13/24 15:45 Current Medications Generic Name Dose Route Start Last Admin Trade Name Freq PRN Reason Stop Dose Admin Piperacillin Sod/Tazobactam 50 mls @ 12.5 mls/hr 01/13/24 20:00 01/14/24 12:03 Sod 3.375 gm/ Sodium Chloride IV Infused Q12H PRUDENCE Infusion PFSH Anesthesia Medical History CKD (chronic kidney disease) stage 3, GFR 30-59 ml/min Raynauds disease Intertrochanteric fracture of left hip Chronic kidney disease CVA (cerebral vascular accident) Hypertension Depression RLS (restless legs syndrome) Hypothyroidism Dysphagia Neuropathy of both feet Multiple sclerosis Essential (primary) hypertension Diabetes mellitus type 2, uncontrolled Surgical History History of surgery on right wrist History of surgery on left wrist History of esophagogastroduodenoscopy (EGD) History of colonoscopy History of back surgery Family History Other Cancer Epilepsy Hypertension Social History Smoking and tobacco/nicotine status: unknown if used tobacco/nicotine Alcohol intake: current Alcohol intake frequency: few times a month Data Anesthesia 01/14/24 05:15 01/14/24 05:15 Short CBC 01/13/24 01/14/24 Range/Units 16:25 05:15 WBC 11.47 H 8.56 (3.29-11.43) 10^3/uL Hgb 9.60 L 8.40 L (11.27-16.99) g/dL Hct 31.1 L 27.1 L (36-47) % MCV 87.9 88.6 (85-98) fl Plt Count 554 H 511 H (157-399) 10^3/cmm Neut % (Auto) 64.8 57.1 % Neut # (Auto) 7.43 4.90 (1.8-7.7) 10^3/uL BMP 01/13/24 01/14/24 16:25 05:15 Sodium 136 137 Potassium 5.5 H 5.2 H Chloride 101 105 Carbon Dioxide 25 21 L BUN 26 H 26 H Creatinine 2.7 H 2.6 H Glucose 152 H 151 H Calcium 8.1 L 7.7 L Liver Function 01/13/24 Range/Units 16:25 Total Bilirubin 0.2 (0.15-1.2) mg/dL AST 12 (0-32) U/L ALT 8 (0-33) U/L Alkaline Phosphatase 158 H (35-105) U/L Albumin 3.5 (3.5-5.2) g/dL Coags 01/13/24 16:25 ESR 20 H C-Reactive Protein 79.2 H Microbiology 01/13/24 19:35 Blood Culture - Preliminary Blood SPECIMEN COLLECTED 01/13/24 19:30 Blood Culture - Preliminary Blood SPECIMEN COLLECTED Cardiac Studies: Echocardiogram 07/28/22
--- NOTE | 2024-01-14 12:29 | PC.NURSE ---
Pt taken to pre-op via bed at 1220.
--- NOTE | 2024-01-14 12:32 | W.PM.OPSUD ---
Surgery/Procedure H&P Update DATE OF PROCEDURE: January 14, 2024 DATE H&P PERFORMED: 01/13/24 H&P UPDATE INFORMATION: I have reviewed H&P completed within last 30 days, I have examined patient prior to procedure, No changes to prior documentation and H&P is in [facility] [place] EMR on date indicated PLANNED PROCEDURE: Operation Date: 01/14/24 12:40 Proposed Procedures p Incision And Drainage(Right) - Dima Caal DPM
[2024-01-14] MEDS: sodium chloride 0.9% 1,000 ML 30 ML IV (12:44)
--- NOTE | 2024-01-14 13:01 | PC.CHAP ---
Pastoral Care Encounter/Spiritual Assessment Type of Contact [] Declined rental sales agent visit [] Patient/Family/Request visit [] Outpatient visit [] Follow-up visit [] Physician referral [] Code/Alert [x] Routine visit [] Staff referral [] Actively dying [] Patient sleeping [] Family support [] [] Out of room [] Palliative care [] [] Receiving care in room [] Pre-surgical visit [] Trauma [] Long length of stay [] ICU visit [] Other: Relational/Emotional Strength [x] Patient feels connected with others/family/visitors/staff [] Distress [] Loneliness/isolation [] Abandonment Spirituality of Patient [x] Person of Mary [x] Attends Christian of their Mary [x] Believes in Prayer [x] Reads Bible or Yarsanism materials [] There are Spiritual issues to be addressed Rhia Interventions [x] Prayer [x] Active listening [] Non-anxious presence [] Spiritual/emotional support [] Crisis/trauma care [] Spiritual counseling [] Bereavement support [] Provided bereavement packet [] Provided Bible/devotional materials [] Provided toy/stuffed animal, coloring book to patient or family member [] Provided Communion [] Anointing/[place] [] Salvation [] Completed spiritual assessment [] Other: Impact on Illness or Injury [] Angry [] Fearful [x] Anxious [] Often cries [] Exhaustion [] Unable to work [] Unable to attend cheondoism [] Unable to walk/stand [] Unable to read [] Unable to drive [] Unable to eat/drink [] Unable to sleep [] Unable to be with family [] Patient intubated [] Other: Summary P+2 Juan. Time spent with patient
--- NOTE | 2024-01-14 13:40 | P.OP_ITS ---
Operative Report Date of procedure: January 14, 2024 Pre-op diagnosis: Wet gangrene right foot Post-op diagnosis: Same Post-op findings: Wet gangrene right foot fifth digit. Osteomyelitis right foot fifth metatarsal head Procedure done: 1. Amputation right foot fifth digit CPT 97038 2. Incision bone cortex right foot fifth metatarsal head CPT 97338 Specimens removed/disposition: Right foot fifth digit, right foot fifth metatarsal head Surgeon: Dima Caal DPM Plant Maintenance Manager: Sumaya Estimated blood loss: 15 cc No tourniquet used Complications: None Findings: See above Procedure: The patient presents with a severe foot infection involving right foot, characterized by erythema, swelling, and drainage. The infection is complicated by underlying conditions, including diabetes, peripheral arterial disease, which have contributed to the progression of the infection despite conservative management. Preoperative imaging and laboratory results indicate wet gangrene, o steomyelitis, necessitating surgical intervention. The planned procedure is intended to address the infection, debride necrotic tissue, and, if necessary, assess the viability of surrounding structures to prevent further complications. The patient has been NPO since midnight. The history has been reviewed and the history and physical is current. The signed consent was confirmed and placed in the patient chart. Patient imaging has been reviewed and is consistent with the diagnosis. Under mild sedation, the patient was brought into the operating room and left on the gurney in the supine position. Patient is receiving antibiotics around the clock on the floor, Therefore, additional antibiotic prophylaxix was not administered. IV sedation was then performed by the anesthesiateam. A local field block was performed using 0.5% Marcaine plain A pneumatic tourniquet was then placed about the right ankle but was not inflated. The operative extremity was then prepped and draped in the usual fashion. After prep, the following procedure was then performed. Attention was directed to the lateral aspect of the right foot where significant necrotic changes to the lateral aspect of the fifth digit and fifth metatarsal head were visualized. A penetrating towel clamp was used to penetrate the right fifth digit. The fifth digit was amputated the level of the metatarsophalangeal joint with #15 blade. The toe was passed from the operative field be sent as surgical specimen. No abscess formation was visualized at this level. Hemostasis was achieved and the head of the fifth metatarsal was evaluated. There was noted to be necrotic and degenerative changes of the metatarsal. #15 blade was used to incise the periosteum of fifth metatarsal head. The metatarsal head was examined. An osteotome was used to remove the necrotic portion of the fifth metatarsal head this was passed from the operative field to be sent as surgical specimen. Remaining bone appeared healthy and viable in n ature. Mosquito hemostat was used to probe the wound. Was noted to track up onto the dorsum of the foot towards the third and second metatarsal at the level of the tarsometatarsal joint. 2 stab incisions were made on the top of the right foot overlying the second and third metatarsals. Next, 3 L of sterile saline was used to irrigate the wound and stab incisions in the top of the right foot. After irrigation, aerobic and anaerobic cultures were obtained. Hemostasis was achieved via electrocautery. Next, incisions were packed with quarter inch iodoform packing gauze before the wound was packed with iodoform packing gauze, Betadine 4 x 4 gauze, dry 4 x 4 gauze, ABD pad, Kerlix, Deep bandage. The patient tolerated the procedure and anesthesia well and without complication. The patient was transported from the operating room to the recovery room with vital signs stable and vascular status intact to all remaining digits of the right foot. Thepatient was instructed to remain nonweightbearing to the operative extremity, to keep surgical dressing clean, dry and intact. The patient will be transferred back to the floor once anesthesia criteria is met. I will continue to round on and follow the patient in the inpatientsetting and provide recommendations to stabilize the patient for discharge. Based on intraoperative findings patient will not require PICC line upon discharge
--- NOTE | 2024-01-14 13:49 | PC.NURSE ---
This nurse took report from BELKIS Santos in PACU at 13:46.
--- NOTE | 2024-01-14 13:55 | ANE.PACU2 ---
Inpatient post-anesthesia follow up: Airway intact: Yes Vital signs: Temperature 97.8 F Pulse Rate 109 Respiratory Rate 16 Blood Pressure 131/78 Pulse Oximetry 96 Oxygen Delivery Me thod Room Air Oxygen Flow Rate Fraction of Inspir ed Oxygen Hydration adequate: Yes Nausea and vomiting: No Pain level: 1 Mental status: Baseline
--- NOTE | 2024-01-14 13:57 | SUR.PHASEI ---
1414 Pt transported to room 261. VS:133/80 RR 78 sats 98% on RA T 98.4 Brennon RN accepted patient and denied any questions or concerns.
--- NOTE | 2024-01-14 14:10 | PC.NURSE ---
Patient back up to med surg floor room 261 from PACU at 1405, accompanied by BELKIS Santos. This nurse assumed care of pt again at this time.
[2024-01-14] MEDS: acetaminophen 325 mg Tablet 650 MG PO (16:52)
[2024-01-14 19:41] LABS: Vancomycin Trough 14.9 ug/mL (10-15)
[2024-01-15] MEDS: acetaminophen 325 mg Tablet 650 MG PO ×2 (01:34→20:28)
[2024-01-15 01:36] VITALS: BP 128/83; PULSE 96; RESP 20; TEMP 37.1; O2SAT 100
[2024-01-15 04:00] VITALS: BP 150/85; PULSE 101; RESP 18; TEMP 36.8; O2SAT 96
[2024-01-15 08:00] VITALS: BP 131/78; PULSE 109; RESP 16; TEMP 36.6; O2SAT 96
[2024-01-15] MEDS: piperacillin-tazobactam 3.375 GM in sodium chloride 0.9% (plus) 50 ML IV ×2 (08:36→20:29)
--- NOTE | 2024-01-15 10:15 | P.PN_ITS ---
Subjective 2 Subjective: Patient seen resting comfortably in chair this morning. No overnight events. Pain remains well-controlled. Surgical dressing shows no strikethrough and is clean, dry, intact Vitals/I&O/Wt Last Vital Signs Temp 97.8 F 01/15/24 08:00 Pulse 109 H 01/15/24 08:00 Resp 16 01/15/24 08:00 BP 131/78 01/15/24 08:00 Pulse Ox 96 01/15/24 08:00 O2 Del Method Room Air 01/15/24 08:00 01/14/24 01/15/24 01/15/24 22:59 06:59 14:59 Intake Total 690 / 835 50 / 885 240 / 240 Balance 690 / 825 50 / 875 240 / 240 Weight last 48 hrs Weight 165 lb 9.6 oz Weight 170 lb 1.6 oz Weight 167 lb Weight 167 lb Physical Exam 2 Narrative: EXAM NARRATIVE: LOWER EXTREMITY EXAMINATION VASCULAR: -DP/PT pulses diminished but palpable DERMATOLOGICAL: -Surgical dressing to right lower extremity clean, dry, intact with no strikethrough noted MUSCULOSKELETAL: -Status post right foot partial fifth ra y resection IMAGING: - X-rays of the right foot: Indicative of areas of air, suggesting the presence of a gas-producing organism. Erosive changes to the lateral aspect of fifth metatarsal head consistent with osteomyelitis. LABORATORY: - Cultures: Taken to identify bacterial growth, specific results pending. Data 01/14/24 05:15 01/14/24 05:15 Micro: Microbiology 01/13/24 19:35 Blood Culture - Preliminary Blood NEGATIVE TO DATE 01/13/24 19:30 Blood Culture - Preliminary Blood NEGATIVE TO DATE 01/14/24 13:30 Gram Stain - Final Other Source A&P Assessment and plan (1) Diabetic ulcer of foot associated with diabetes mellitus due to underlying condition, with necrosis of bone: (2) Diabetic foot ulcer associated with type 2 diabetes mellitus: (3) Diabetic wet gangrene of the foot: Plan -Right foot wet gangrene -Labs and vitals reviewed -WBC 11.47--> 8.56 -ESR 20 -CRP 79 -VSS -Cultures wound cultures obtained in clinic show preliminary GPC's and GNR's -Abx Vanco/Zosyn -Diet: Okay for diet -Plan will be to return to operating room 01/17/2024 for washout and delayed primary closure of right foot -Pain Mgmt: Per primary team -Weight bearing: Weightbearing to right foot for transfers only -Dressings: Leave surgical dressing clean, dry, intact -Continue current Abx therapy until ID and Sensitivity results -Trend labs -Discharge plan: To be determined -Podiatry will continue to round on patient daily and provide recommendations Attestations 2 Medical Necessity Statement*: Status post right foot fifth digit amputation and incision bone cortex right fifth metatarsal. Wound left open. Continue IV antibiotic therapy. Plan to return to operating room on 01/17/2024 for delayed primary closure Coding Level of Care Code Acute Code for [facility] Diagnoses Diabetic ulcer of foot associated with diabetes mellitus due to underlying condition, with necrosis of bone E08.621; L97.504 Diabetic foot ulcer associated with type 2 diabetes mellitus E11.621; L97.509 Diabetic wet gangrene of the foot E11.52
[2024-01-15] MEDS: VANCOMYCIN ADD-Vantage 1,000 MG in 0.9% NaCl ADD-Vantage 250 ML 250 MG IV (11:25)
[2024-01-15 11:45] VITALS: BP 152/81; PULSE 81; RESP 16; TEMP 36.6; O2SAT 95
[2024-01-15 16:00] VITALS: BP 152/82; PULSE 100; RESP 14; TEMP 37; O2SAT 95
--- NOTE | 2024-01-15 16:25 | P.PN_ITS ---
Subjective 2 Subjective: Patient seen resting comfortably in chair this morning. No overnight events. Pain remains well-controlled. Surgical dressing shows no strikethrough and is clean, dry, intact Vitals/I&O/Wt Last Vital Signs Temp 97.8 F 01/15/24 11:45 Pulse 81 01/15/24 11:45 Resp 16 01/15/24 11:45 BP 152/81 01/15/24 11:45 Pulse Ox 95 01/15/24 11:45 O2 Del Method Room Air 01/15/24 11:45 01/15/24 01/15/24 01/15/24 06:59 14:59 22:59 Intake Total 50 / 885 660 / 660 Balance 50 / 875 660 / 660 Weight last 48 hrs Weight 75.115 kg Weight 77.156 kg Weight 75.75 kg Physical Exam 2 Narrative: General: No acute distress, AO x3 HEENT: PERRLA, pupils bilaterally equal and reactive, pallors not present Chest: Normal vesicular breath sounds, no added sounds, equal good air entry bilaterally CVS: S1-S2 regular, no murmurs, no tachycardia, no gallops, no rubs Abdomen: Soft, nontender, no organomegaly, bowel sounds present Extremities: Right foot in surgical dressing, not open for exam. Left foot in boot immobilizer. Data 01/14/24 05:15 01/14/24 05:15 Micro: Microbiology 01/14/24 13:30 Gram Stain - Final Other Source Wound Culture - Preliminary 01/14/24 13:30 Anaerobic Culture - Preliminary Foot - #1 01/13/24 19:35 Blood Culture - Preliminary Blood NEGATIVE TO DATE 01/13/24 19:30 Blood Culture - Preliminary Blood NEGATIVE TO DATE NAME: Gia Clement I LOC: [facility] U #: [id number] AGE/SX: 73/F ROOM: R E01/13/[address]: Dima Caal DPM : 1950 BED: D IS: FAX #: STATUS: DEP AMB TLOC: Spec #: [id number] Coreen: 01/13/24-1523 Status: RES Req #: [id number] Recd: 01/13/24-[address]: Dima Caal DPM Src: Other Sour SpDesc: Ordered: SOCORRO and DANISHA Procedure Result Verified Site Gram Stain Final 01/14/24 Result RARE WHITE BLOOD CELLS HEAVY GRAM POSITIVE COCCI IN PAIRS & CLUSTERS RARE GRAM NEGATIVE RODS Wound Culture Preliminary 01/15/24 Organism 1 Coag positive Staphylococcus Growth HEAVY Organism 2 Strep agalactiae - (group b) Growth HEAVY Strep Typing Strep Typing HEAVY MIXED SUPERFICIAL BENIGNO ON DAY 2 Wound Culture Preliminary (changed) 01/15/24 Organism 1 Coag positive Staphylococcus Growth HEAVY HEAVY MIXED SUPERFICIAL BENIGNO ON DAY 2 Wound Culture Preliminary (changed) 01/14/24 HEAVY MIXED SUPERFICIAL BENIGNO ON DAY 1 NAME: Gia Clement I LOC: [facility] U #: [id number] AGE/SX: 73/F ROOM: 261 R E01/13/[address]: Aleida Doss MD : 1950 BED: 1 D IS: FAX #: STATUS: ADM IN TLOC: Spec #: [id number] Coreen: 01/14/24 Status: RES Req #: [id number] Recd: 01/14/[address]: Dima Caal DPM Src: Other Sour SpDesc: Ordered: SOCORRO and DANISHA Comments: Comment right foot wound Procedure Result Verified Site Gram Stain Final 01/14/24 Result FEW WHITE BLOOD CELLS NO ORGANISMS SEEN Wound Culture Preliminary 01/15/24 FEW MIXED SUPERFICIAL BENIGNO ON DAY 1 A&P Assessment and plan (1) Diabetic wet gangrene of the foot: (2) Diabetic ulcer of foot associated with diabetes mellitus due to underlying condition, with necrosis of bone: (3) Charcot arthropathy of midfoot: (4) Multiple sclerosis: (5) Diabetes mellitus type 2, uncontrolled: Qualifiers: Glycemic state: with hypoglycemia Coma presence: without coma Qualified Code(s): E11.649 - Type 2 diabetes mellitus with hypoglycemia without coma (6) Essential (primary) hypertension: Plan Continue Zosyn and vancomycin Hold oral diabetic medications May start sliding scale insulin postoperatively and restart Lantus tomorrow evening OR today Plan for today January 15, 2024. Patient is status post amputation of the right foot fifth digit and and fifth metatarsal head. Plan to return to the OR on Wednesday for delayed primary closure. Daughter reports that her cellulitis extending up to the calf is much improving today. Blood pressure uncontrolled with systolic up to 150/81. Afebrile. Leukocytosis is improving. Intermittently tachycardic with heart rate up to 109 this morning. Resuming home doses of atenolol 25 mg daily, amlodipine 5 mg daily. Continuing to hold losartan for now given STEFANI with creatinine at 2.6 currently. Urine output is not accurately charted. Discontinue IV vancomycin due to ongoing shortage. Changed to linezolid 600 mg p.o. every 12 hours. Continue piperacillin/tazobactam until cultures are available. Outpatient cultures from 01/13/2024 thus far showing coag positive staph and group B strep. Awaiting to see if this turns out to be MRSA versus MSSA to decide narrowing of antibiotics. Some gram-negative rods also seen on Gram stain. No growth on cultures yet. Previously known to be colonized with Pseudomonas aeruginosa, Serratia and Klebsiella. Prior history of MRSA additionally. Depending on OR findings on Wednesday, to decide regarding IV versus oral antibiotics and duration at discharge. Attestations 2 Medical Necessity Statement*: Awaiting culture results, plan to return to the OR early next week for closure, resuming home medications for tachycardia and hypertension. Coding Level of Care Code Acute Code for [facility] Diagnoses Diabetic wet gangrene of the foot E11.52 Diabetic ulcer of foot associated with diabetes mellitus due to underlying condition, with necrosis of bone E08.621; L97.504 Charcot arthropathy of midfoot M14.679 Multiple sclerosis G35 Uncontrolled type 2 diabetes mellitus with hypoglycemia without coma E11.649 Glycemic state: with hypoglycemia Coma presence: without coma Essential (primary) hypertension I10
[2024-01-15 17:15] LABS: Glucose Point of Care 269 mg/dL (70-110)
[2024-01-15] MEDS: insulin lispro 100 unit/1 mL SUBCUT (17:34)
[2024-01-15 20:00] VITALS: BP 132/74; PULSE 114; RESP 18; TEMP 36.8; O2SAT 96
[2024-01-15 20:48] LABS: Glucose Point of Care 104 mg/dL (70-110)
[2024-01-15] MEDS: linezolid 600 mg Tablet PO (21:54)
[2024-01-16] VITALS: BP 125/84; PULSE 115; RESP 18; TEMP 36.8; O2SAT 96
[2024-01-16 04:00] VITALS: BP 162/96; PULSE 120; RESP 16; TEMP 36.7; O2SAT 94
[2024-01-16 06:44] LABS: Glucose Point of Care 206 mg/dL (70-110)
[2024-01-16 08:00] VITALS: BP 142/94; PULSE 119; RESP 15; TEMP 36.7; O2SAT 98
[2024-01-16] MEDS: insulin lispro 100 unit/1 mL SUBCUT ×4 (08:12→21:00)
[2024-01-16] MEDS: piperacillin-tazobactam 3.375 GM in sodium chloride 0.9% (plus) 50 ML IV (08:12)
[2024-01-16] MEDS: amlodipine 5 mg Tablet PO (08:13)
[2024-01-16] MEDS: atenolol 50 mg Tablet 25 MG PO (08:13)
[2024-01-16] MEDS: levothyroxine 25 mcg Tablet PO (08:13)
[2024-01-16] MEDS: HYDROcodone-acetaminophen 5-325 mg Tablet 1 TAB PO ×3 (08:13→23:31)
[2024-01-16] MEDS: ARIPiprazole 10 mg Tablet 5 MG PO (08:14)
[2024-01-16] MEDS: gabapentin 300 mg Capsule PO (08:14)
[2024-01-16] MEDS: linezolid 600 mg Tablet PO ×2 (10:12→21:00)
[2024-01-16 11:06] LABS: Glucose Point of Care 285 mg/dL (70-110)
[2024-01-16 12:00] VITALS: BP 129/81; PULSE 90; RESP 14; TEMP 36.7; O2SAT 95
--- NOTE | 2024-01-16 15:49 | P.PN_ITS ---
Subjective 2 Subjective: Patient seen at bedside this afternoon. Resting comfortably. Pain is well- controlled with pain medication. No overnight events. Plan for OR tomorrow 01/17/2024 for delayed primary closure. Patient's family notified Vitals/I&O/Wt Last Vital Signs Temp 98.0 F 01/16/24 12:00 Pulse 90 01/16/24 12:00 Resp 14 01/16/24 12:00 BP 129/81 01/16/24 12:00 Pulse Ox 95 01/16/24 12:00 O2 Del Method Room Air 01/16/24 12:00 01/16/24 01/16/24 01/16/24 06:59 14:59 22:59 Intake Total 470 / 470 Balance 470 / 470 Weight last 48 hrs Weight 161 lb 1.6 oz Weight 165 lb 9.6 oz Physical Exam 2 Narrative: EXAM NARRATIVE: LOWER EXTREMITY EXAMINATION VASCULAR: -DP/PT pulses diminished but palpable DERMATOLOGICAL: -Surgical dressing to right lower extremity clean, dry, intact with no strikethrough noted MUSCULOSKELETAL: -Status post right foot partial fifth ra y resection IMAGING: - X-rays of the right foot: Indicative of areas of air, suggesting the presence of a gas-producing organism. Erosive changes to the lateral aspect of fifth metatarsal head consistent with osteomyelitis. LABORATORY: - Cultures: Taken to identify bacterial growth, specific results pending. Data 01/14/24 05:15 01/14/24 05:15 Micro: Microbiology 01/14/24 13:30 Gram Stain - Final Other Source Wound Culture - Final Staphylococcus aureus Strep agalactiae - (group b) 01/14/24 13:30 Anaerobic Culture - Preliminary Foot - #1 A&P Assessment and plan (1) Diabetic ulcer of foot associated with diabetes mellitus due to underlying condition, with necrosis of bone: (2) Diabetic foot ulcer associated with type 2 diabetes mellitus: (3) Diabetic wet gangrene of the foot: Plan -Right foot wet gangrene -Labs and vitals reviewed -WBC 11.47--> 8.56 -ESR 20 -CRP 79 -VSS--tachycardic up to 120 bpm this morning -Cultures wound cultures obtained in clinic show group B strep and MRSA; OR cultures show MSSA -Abx Vanco/Zosyn -Diet: N.p.o. at midnight -Plan will be to return to operating room tomorrow, 01/17/2024 for washout and delayed primary closure of right foot. Patient will need partial fifth metatarsal resection for adequate soft tissue closure -Pain Mgmt: Per primary team -Weight bearing: Weightbearing to right foot for transfers only -Dressings: Leave surgical dressing clean, dry, intact -Continue current Abx therapy -Trend labs -Discharge plan: To be determined -Podiatry will continue to round on patient daily and provide recommendations Attestations 2 Medical Necessity Statement*: Return to the OR tomorrow 01/17/2024 for delayed primary closure Coding Level of Care Code Acute Code for [facility] Diagnoses Diabetic ulcer of foot associated with diabetes mellitus due to underlying condition, with necrosis of bone E08.621; L97.504 Diabetic foot ulcer associated with type 2 diabetes mellitus E11.621; L97.509 Diabetic wet gangrene of the foot E11.52
[2024-01-16 16:00] VITALS: BP 115/75; PULSE 90; RESP 15; TEMP 36.7; O2SAT 94
[2024-01-16 16:47] LABS: Glucose Point of Care 187 mg/dL (70-110)
--- NOTE | 2024-01-16 17:00 | PM.PN ---
Subjective Subjective: No new complaints except has some pain in the foot today. Afebrile, hemodynamically stable. Vitals/I&O/Wt Last Vital Signs Temp 98.1 F 01/16/24 16:00 Pulse 90 01/16/24 16:00 Resp 15 01/16/24 16:00 BP 115/75 01/16/24 16:00 Pulse Ox 94 01/16/24 16:00 O2 Del Method Room Air 01/16/24 16:00 01/16/24 01/16/24 01/16/24 06:59 14:59 22:59 Intake Total 470 / 470 Balance 470 / 470 Weight last 48 hrs Weight 73.074 kg Weight 75.115 kg Physical Exam Narrative: General: No acute distress, AO x3 HEENT: PERRLA, pupils bilaterally equal and reactive, pallors not present Chest: Normal vesicular breath sounds, no added sounds, equal good air entry bilaterally CVS: S1-S2 regular, no murmurs, no tachycardia, no gallops, no rubs Abdomen: Soft, nontender, no organomegaly, bowel sounds present Extremities: Right foot in surgical dressing, not open for exam. Left foot in boot immobilizer. Data 01/14/24 05:15 01/14/24 05:15 Micro: Microbiology 01/14/24 13:30 Gram Stain - Final Other Source Wound Culture - Final Staphylococcus aureus Strep agalactiae - (group b) NAME: Gia Clement I LOC: [facility] #: [id number] AGE/SX: 73/F ROOM: [facility] RE01/13/[address]: Aleida Saenz MD : 1950 BED: 1 DIS: FAX #: STATUS: ADM IN TLOC: Spec #: [id number] Coreen: 01/14/24 Status: COMP Req #: [id number] Recd: 01/14/[address]: Dima Caal DPM Src: Other Sour SpDesc: Ordered: WC and GS Comments: Comment right foot wound Procedure Result Verified Site Gram Stain Final 01/14/24-1821 Result FEW WHITE BLOOD CELLS NO ORGANISMS SEEN Wound Culture Final 01/16/24-1431 Organism 1 Staphylococcus aureus Growth FEW Organism 2 Strep agalactiae - (group b) Growth FEW FEW MIXED SUPERFICIAL BENIGNO ON DAY 2 SENSITIVITIES FOR GROUP B STREP TO BE REPORTED ON [id number] CRITICAL RESULT YES/NO: YES CRITICAL CALLED BY: KAR TO AND READ BACK BY: DR. SAENZ DATE: 01/16/24 TIME: 1432 S aureus M.I.C. RX --------- ------ * Ciprofloxacin <=1 S * Clindamycin <=0.5 R * Erythromycin >4 R * Gentamicin <=4 S * Levofloxacin <=1 S * Linezolid 4 S * Moxifloxacin <=0.5 S * Oxacillin <=0.25 S * Penicillin >8 R * Rifampin <=1 S * Tetracycline <=4 S * Trimethoprim/Sulfamethoxazole <=0.5/9.5 S Vancomycin 2 S Daptomycin 1 S 01/14/24 13:30 Anaerobic Culture - Preliminary Foot - #1 [facility] [address] [place] [address] DR. MALACHI MUNGUIA, RESIDENT CARE SPEC NAME: Gia Clement I LOC: [facility] U #: [id number] AGE/SX: 73/F ROOM: RE01/13/[address]: Dima Caal DPM : 1950 BED: DIS: FAX #: STATUS: [facility] TLOC: Spec #: [id number] Coreen: 01/13/24-1523 Status: RES Req #: [id number] Recd: 01/13/[address]: Dima Caal DPM Src: Other Sour SpDesc: Ordered: WC and GS Procedure Result Verified Site Gram Stain Final 01/14/24-170 Result RARE WHITE BLOOD CELLS HEAVY GRAM POSITIVE COCCI IN PAIRS & CLUSTERS RARE GRAM NEGATIVE RODS Wound Culture Preliminary 01/16/24-142 Organism 1 Methicillin Resis Staph Aureus Growth HEAVY Organism 2 Strep agalactiae - (group b) Growth HEAVY Strep Typing Strep Typing HEAVY MIXED SUPERFICIAL BENIGNO ON DAY 3 CRITICAL RESULT YES/NO: YES CRITICAL CALLED BY: TO AND READ BACK BY: DR. SAENZ DATE: 01/16/24 TIME: 1429 MRSA M.I.C. RX --------- ------ * Ciprofloxacin >2 R * Clindamycin >4 R * Erythromycin >4 R * Gentamicin <=4 S * Levofloxacin >4 R * Linezolid 4 S * Moxifloxacin >4 R * Oxacillin >2 R * Penicillin >8 R * Rifampin <=1 S * Tetracycline >8 R * Trimethoprim/Sulfamethoxazole >2/38 R Vancomycin 2 S Daptomycin 1 S Wound Culture Preliminary (changed) 01/15/24-1409 Organism 1 Coag positive Staphylococcus Growth HEAVY Organism 2 Strep agalactiae - (group b) Growth HEAVY Strep Typing Strep Typing HEAVY MIXED SUPERFICIAL BENIGNO ON DAY 2 Wound Culture Preliminary (changed) 01/15/24-1141 Organism 1 Coag positive Staphylococcus Growth HEAVY HEAVY MIXED SUPERFICIAL BENIGNO ON DAY 2 Wound Culture Preliminary (changed) 01/14/24-1705 HEAVY MIXED SUPERFICIAL BENIGNO ON DAY 1 A&P Assessment and plan (1) Diabetic wet gangrene of the foot: (2) Diabetic ulcer of foot associated with diabetes mellitus due to underlying condition, with necrosis of bone: (3) Charcot arthropathy of midfoot: (4) Multiple sclerosis: (5) Diabetes mellitus type 2, uncontrolled: Qualifiers: Glycemic state: with hypoglycemia Coma presence: without coma Qualified Code(s): E11.649 - Type 2 diabetes mellitus with hypoglycemia without coma (6) Essential (primary) hypertension: Plan Continue Zosyn and vancomycin Hold oral diabetic medications May start sliding scale insulin postoperatively and restart Lantus tomorrow evening OR today Plan for today January 15, 2024. Patient is status post amputation of the right foot fifth digit and and fifth metatarsal head. Plan to return to the OR on Wednesday for delayed primary closure. Daughter reports that her cellulitis extending up to the calf is much improving today. Blood pressure uncontrolled with systolic up to 150/81. Afebrile. Leukocytosis is improving. Intermittently tachycardic with heart rate up to 109 this morning. Resuming home doses of atenolol 25 mg daily, amlodipine 5 mg daily. Continuing to hold losartan for now given STEFANI with creatinine at 2.6 currently. Urine output is not accurately charted. Discontinue IV vancomycin due to ongoing shortage. Changed to linezolid 600 mg p.o. every 12 hours. Continue piperacillin/tazobactam until cultures are available. Outpatient cultures from 01/13/2024 thus far showing coag positive staph and group B strep. Awaiting to see if this turns out to be MRSA versus MSSA to decide narrowing of antibiotics. Some gram-negative rods also seen on Gram stain. No growth on cultures yet. Previously known to be colonized with Pseudomonas aeruginosa, Serratia and Klebsiella. Prior history of MRSA additionally. Depending on OR findings on Wednesday, to decide regarding IV versus oral antibiotics and duration at discharge. Plan for today January 16, 2024. No new complaints today. Plan to go back to the OR tomorrow for delayed primary closure. Blood pressure is better controlled today with resuming home medications. OR culture from 01 13 showing MSSA and group B strep. Previously outpatient cultures from January 12 with MRSA plus group B strep. Patient was prior known to be colonized with MRSA therefore would give MRSA coverage at the time of discharge. Based on overall findings tomorrow, further decision will be taken with regards to discharge with IV versus oral antibiotics. Can discontinue IV piperacillin/tazobactam given no gram-negative rods have been discovered on her wound cultures thus far. Attestations Medical Necessity Statement*: Plan to or intervention tomorrow. Coding Level of Care Code Acute Code for [facility] Diagnoses Diabetic wet gangrene of the foot E11.52 Diabetic ulcer of foot associated with diabetes mellitus due to underlying condition, with necrosis of bone E08.621; L97.504 Charcot arthropathy of midfoot M14.679 Multiple sclerosis G35 Uncontrolled type 2 diabetes mellitus with hypoglycemia without coma E11.649 Glycemic state: with hypoglycemia Coma presence: without coma Essential (primary) hypertension I10
[2024-01-16 19:46] VITALS: BP 103/69; PULSE 90; RESP 16; TEMP 36.8; O2SAT 96
[2024-01-16 20:12] LABS: Glucose Point of Care 202 mg/dL (70-110)
[2024-01-17] VITALS (12 sets, daily range): BP systolic 124–148; BP diastolic 74–89; PULSE 86–108; RESP 16–22; TEMP 36.4–37.2; O2SAT 92–100
[2024-01-17 04:36] LABS: Basophils # 0.1 10^3/uL (0.0-0.1); Basophils % 1.1 %; Eosinophils # 0.3 10^3/uL (0.0-0.8); Eosinophils % 3.4 %; Hematocrit 27.3 % (36-47); Lymphocytes % 33.7 %; Mean Corpuscular HGB Conc 30.4 g/dL (30-55); Mean Corpuscular Hemoglobin 27.3 pg (27-33); Mean Corpuscular Volume 89.8 fl (85-98); Mean Platelet Volume 9.9 fL (7.4-10.4); Monocytes # 0.7 10^3/uL (0.2-0.9); Monocytes % 7.6 %; Neutrophils # 4.78 10^3/uL (1.8-7.7); Neutrophils % 53.9 %; Nucleated Red Blood Cells % 0 %; Platelet Count 420 10^3/cmm (157-399); Red Blood Count 3.04 10^6/uL (3.85-5.65); Red Cell Distribution Width 14.6 % (12.1-15.1); White Blood Count 8.87 10^3/uL (3.29-11.43)
[2024-01-17 05:00] LABS: Alanine Aminotransferase < 5 U/L (0-33); Albumin Level 3.1 g/dL (3.5-5.2); Alkaline Phosphatase 112 U/L (35-105); Anion Gap 16.7 (5-19); Aspartate Amino Transferase 11 U/L (0-32); Blood Urea Nitrogen 22 mg/dL (8-23); Calcium 8.3 mg/dL (8.5-10.5); Carbon Dioxide 20 mmol/L (22-29); Chloride 103 mmol/L (98-107); Globulin 3.7 g/dL (1.3-4.6); Glucose 174 mg/dL (65-115); Osmolality Calculated 288 mOsm/kg (285-295); Potassium 4.7 mmol/L (3.5-5.1); Sodium 135 mmol/L (136-145); Total Bilirubin 0.2 mg/dL (0.15-1.2); Total Protein 6.8 g/dL (6.6-8.7)
[2024-01-17 06:35] LABS: Glucose Point of Care 171 mg/dL (70-110)
--- NOTE | 2024-01-17 09:15 | ANES.PAUD2 ---
Pre-Anesthetic Update Pre-Anesthetic Assessment: Date of Surgery/Procedure: 01/17/24 Proposed Procedure: Operation Date: 01/14/24 12:40 Proposed Procedures p Incision And Drainage(Right) - Dima Caal DPM Operation Date: 01/17/24 10:35 Proposed Procedures p Resection Metatarsal Rescection Foot 1-5 Digit Phalanx(Right) - Dima Caal DPM s Delayed Wound Closure(Right) - Dima Caal DPM Any changes to Pre-Anesthetic Assessment?: No Last Intake: Intake Last Liquid Date 01/16/24 Last Liquid Time 23:30 Last Solid Date 01/16/24 Last Solid Time 20:00 Labs Last 48hrs: Short CBC 01/17/24 Range/Units 03:53 WBC 8.87 (3.29-11.43) 10^ 3/uL Hgb 8.30 L (11.27-16.99) g/ dL Hct 27.3 L (36-47) % MCV 89.8 (85-98) fl Plt Count 420 H (157-399) 10^3/c mm Neut % (Auto) 53.9 % Neut # (Auto) 4.78 (1.8-7.7) 10^3/u L BMP 01/17/24 03:53 Sodium 135 L Potassium 4.7 Chloride 103 Carbon Dioxide 20 L BUN 22 Creatinine 2.3 H Glucose 174 H Calcium 8.3 L Liver Function 01/17/24 Range/Units 03:53 Total Bilirubin 0.2 (0.15-1.2) mg/dL AST 11 (0-32) U/L ALT < 5 (0-33) U/L Alkaline Phosphata se 112 H (35-105) U/L Albumin 3.1 L (3.5-5.2) g/dL Vitals: Temperature 98.2 F 01/17/24 07:39 Temperature Source Oral 01/17/24 07:39 Pulse Rate 96 01/17/24 07:39 Pulse Rhythm Regular 01/13/24 17:02 Pulse Strength 3+ Normal 01/14/24 08:00 Respiratory Rate 16 01/17/24 07:39 Respiratory Effort Spontaneous, Non- Labored 01/14/24 08:00 Respiratory Depth Normal 01/14/24 08:00 Respiratory Patter n Normal 01/14/24 08:00 Blood Pressure 137/82 01/17/24 07:39 Blood Pressure Amalia n 100 01/17/24 07:39 Blood Pressure Pos ition Semi Fowlers 01/17/24 04:00 Pulse Oximetry 98 01/17/24 07:39 Oxygen Delivery Me thod Room Air 01/17/24 07:39 Exam: Pre-Anes Outpt Exam: alert, oriented x 3, clear to auscultation bilaterally and regular rate & rhythm Cardiac Studies: Echocardiogram 07/28/22
[2024-01-17] MEDS: sodium chloride 0.9% 1,000 ML 30 ML IV (09:40)
--- NOTE | 2024-01-17 10:00 | W.PM.OPSUD ---
Surgery/Procedure H&P Update DATE OF PROCEDURE: January 17, 2024 DATE H&P PERFORMED: 01/13/24 H&P UPDATE INFORMATION: I have reviewed H&P completed within last 30 days, I have examined patient prior to procedure, No changes to prior documentation and [place] is in [facility] [place] indicated PLANNED PROCEDURE: Operation Date: 01/14/24 12:40 Proposed Procedures p Incision And Drainage(Right) - Dima Caal DPM Operation Date: 01/17/24 10:35 Proposed Procedures p Resection Metatarsal Rescection Foot 1-5 Digit Phalanx(Right) - Dima Caal DPM s Delayed Wound Closure(Right) - Dima Caal DPM
[2024-01-17] MEDS: BUPivacaine 0.5% INJ 30 mL INJECTION (10:59)
--- NOTE | 2024-01-17 11:12 | P.BOP_ITS ---
Date of procedure: 01/17/2024 Surgeon name: Dr. Dima Caal D.P.M. Traffic Control Officer(s) name(s): Astrid Procedure(s) performed: Partial fifth metatarsal resection right foot with delayed primary closure right foot Description of findings: Remaining tissues were healthy and viable. Wound closed. Estimated blood loss: 10 cc Tourniquet time: 24-minute Specimen(s) removed: Fifth metatarsal right foot Post-operative diagnosis: Osteomyelitis
[2024-01-17 11:23] LABS: Glucose Point of Care 159 mg/dL (70-110)
--- NOTE | 2024-01-17 11:30 | ANE.PACU2 ---
Inpatient post-anesthesia follow up: Airway intact: Yes Vital signs: Temperature 97.9 F Pulse Rate 96 Respiratory Rate 18 Blood Pressure 147/83 Pulse Oximetry 100 Oxygen Delivery Me thod Room Air Oxygen Flow Rate Fraction of Inspir ed Oxygen Hydration adequate: Yes Nausea and vomiting: No Pain level: 1 Mental status: Baseline
[2024-01-17 11:53] LABS: Glucose Point of Care 159 mg/dL (70-110)
[2024-01-17] MEDS: insulin lispro 100 unit/1 mL SUBCUT ×3 (12:00→21:10)
[2024-01-17] MEDS: HYDROcodone-acetaminophen 5-325 mg Tablet 1 TAB PO ×2 (13:13→21:09)
--- NOTE | 2024-01-17 13:34 | P.PN_ITS ---
Subjective 2 Subjective: Seen this morning. Patient seen after fifth metatarsal resection of right foot. Resting comfortably in bed. Daughter at bedside. Patient does have a history of MS and is not on any medication for it at this time. Vitals/I&O/Wt Last Vital Signs Temp 97.9 F 01/17/24 12:40 Pulse 96 01/17/24 12:40 Resp 18 01/17/24 12:40 BP 147/83 01/17/24 12:40 Pulse Ox 100 01/17/24 12:40 O2 Del Method Room Air 01/17/24 12:40 01/16/24 01/17/24 01/17/24 22:59 06:59 14:59 Intake Total 240 / 710 290 / 290 Output Total Balance 240 / 710 280 / 280 Weight last 48 hrs Weight 73.255 kg Weight 73.074 kg Physical Exam 2 Narrative: General: No acute distress, AO x3 HEENT: PERRLA, pupils bilaterally equal and reactive, pallors not present Chest: Normal vesicular breath sounds, no added sounds, equal good air entry bilaterally CVS: S1-S2 regular, no murmurs, no tachycardia, no gallops, no rubs Abdomen: Soft, nontender, no organomegaly, bowel sounds present Extremities: Right foot in surgical dressing, Left foot in boot immobilizer. Data 01/17/24 03:53 01/17/24 03:53 Micro: Microbiology 01/14/24 13:30 Anaerobic Culture - Preliminary Foot - #1 01/14/24 13:30 Gram Stain - Final Other Source Wound Culture - Final Staphylococcus aureus Strep agalactiae - (group b) A&P Assessment and plan (1) Diabetic wet gangrene of the foot: (2) Diabetic ulcer of foot associated with diabetes mellitus due to underlying condition, with necrosis of bone: (3) Charcot arthropathy of midfoot: (4) Multiple sclerosis: (5) Diabetes mellitus type 2, uncontrolled: Qualifiers: Glycemic state: with hypoglycemia Coma presence: without coma Qualified Code(s): E11.649 - Type 2 diabetes mellitus with hypoglycemia without coma (6) Essential (primary) hypertension: Plan Continue Zosyn and vancomycin Hold oral diabetic medications May start sliding scale insulin postoperatively and restart Lantus tomorrow evening OR today Plan for today January 15, 2024. Patient is status post amputation of the right foot fifth digit and and fifth metatarsal head. Plan to return to the OR on Wednesday for delayed primary closure. Daughter reports that her cellulitis extending up to the calf is much improving today. Blood pressure uncontrolled with systolic up to 150/81. Afebrile. Leukocytosis is improving. Intermittently tachycardic with heart rate up to 109 this morning. Resuming home doses of atenolol 25 mg daily, amlodipine 5 mg daily. Continuing to hold losartan for now given STEFANI with creatinine at 2.6 currently. Urine output is not accurately charted. Discontinue IV vancomycin due to ongoing shortage. Changed to linezolid 600 mg p.o. every 12 hours. Continue piperacillin/tazobactam until cultures are available. Outpatient cultures from 01/13/2024 thus far showing coag positive staph and group B strep. Awaiting to see if this turns out to be MRSA versus MSSA to decide narrowing of antibiotics. Some gram-negative rods also seen on Gram stain. No growth on cultures yet. Previously known to be colonized with Pseudomonas aeruginosa, Serratia and Klebsiella. Prior history of MRSA additionally. Depending on OR findings on Wednesday, to decide regarding IV versus oral antibiotics and duration at discharge. Plan for today January 17, 2024. Patient 2 OR today for delayed primary closure. Seen status post closure. Resting comfortably in bed.. OR culture from 01 13 showing MSSA and group B strep. Previously outpatient cultures from January 12 with MRSA plus group B strep. Patient was prior known to be colonized with MRSA therefore would give MRSA coverage at the time of discharge. Will discuss with Dr. Caal regarding surgical procedure and decide on IV versus oral antibiotics going forward. Continue linezolid for now. Zosyn was discontinued yesterday Attestations 2 Medical Necessity Statement*: Postop care status post fifth metatarsal amputation. Will discuss with Dr. Caal regarding IV versus oral antibiotics. Awaiting culture to be finalized. Diagnoses Diabetic wet gangrene of the foot E11.52 Diabetic ulcer of foot associated with diabetes mellitus due to underlying condition, with necrosis of bone E08.621; L97.504 Charcot arthropathy of midfoot M14.679 Multiple sclerosis G35 Uncontrolled type 2 diabetes mellitus with hypoglycemia without coma E11.649 Glycemic state: with hypoglycemia Coma presence: without coma Essential (primary) hypertension I10
[2024-01-17 16:33] LABS: Glucose Point of Care 200 mg/dL (70-110)
--- NOTE | 2024-01-17 19:16 | P.OP_ITS ---
Operative Report Date of procedure: January 17, 2024 Procedure: Date of procedure: 01/17/2024 Pre-op diagnosis: Wet gangrene right foot Post-op diagnosis: Same Post-op findings: Remaining tissue was healthy and viable. Proximal margin of fifth metatarsal was hard with no evidence of osteomyelitis Procedure done: Delayed primary closure right foot CPT 80536; resection fifth metatarsal, partial Implants: None Specimens removed: Fifth metatarsal right foot Surgeon: Dr. Dima Caal DPM News Assignment Editor: Astrid Estimated blood loss: 10 cc Tourniquet time: 24 minutes Complications: None Patient returns the operating room after undergoing right foot fifth digit amputation, incision bone cortex of right fifth metatarsal for repeat washout and possible delayed primary closure. Preoperative imaging and laboratory results have been reviewed. All patient questions were answered to patient satisfaction. The patient has been NPO since midnight. The history has been reviewed and the history and physical is current. The signed consent was confirmed and placed in the patient chart. Patient imaging has been reviewed and is consistent with the diagnosis. Under mild sedation, the patient was brought into the operating room and left on the gurney in the supine position. Patient is receiving antibiotics around the clock on the floor, Therefore, additional antibiotic prophylaxix was not administered. MAC sedation was then performed by the anesthesiateam. A local field block was performed using 30 cc of 0.5% Marcaine plain. A pneumatic tourniquet was then placed about the right ankle. The operative extremity was then prepped and draped in the usual fashion. After prep, the following procedure was then performed. The tourniquet was inflated to 250 mmHg. Attention was directed to the lateral aspect of the right foot where a large defect was noted after the right foot fifth digit amputation and incision bone cortex right fifth metatarsal. A rongeur was used to remove necrotic tissue visualized at the wound bed. Next, #15 blade was used to dissect the remaining distal portion of the fifth metatarsal. It was determined that resection of fifth metatarsal would be most appropriate to provide adequate soft tissue coverage of the wound. A sagittal bone saw was used to remove the most distal aspect of the fifth metatarsal using an oblique osteotomy. The fifth metatarsal resection piece was passed from the operative field to be sent as surgical specimen to pathology. The site was examined and explored and no further abscess or purulence was visualized. Hemostasis was achieved. The site was irrigated with copious amounts of sterile saline before attention was directed to closure. The amputation site was closed using a combination of simple interrupted and retention suture techniques. The entirety of the wound was able to be closed. The tourniquet was let down and good hyperemic response was noted to all remaining digits of the right foot. The incision site was dressed with Xeroform, 4 x 4 gauze, ABD pads, Kerlix, Deep bandage. Patient was placed in a postoperative shoe. The patient tolerated the procedure and anesthesia well and without complication. The patient was transported from the operating room to the recovery room with vital signs stable and vascular status intact to all digits of the right foot. Thepatient was instructed to remain weightbearing to the operative extremity for transfers only, to keep surgical dressing clean, dry and intact. The patient will be transferred back to the floor once anesthesia criteria is met. Based on intraoperative findings patient will be okay to discharge home from podiatry standpoint on oral antibiotics with 1 week follow-up.
[2024-01-17 20:48] LABS: Glucose Point of Care 184 mg/dL (70-110)
[2024-01-17] MEDS: linezolid 600 mg Tablet PO (21:09)
[2024-01-18] VITALS: BP 131/83; PULSE 111; RESP 16; TEMP 36.7; O2SAT 92
[2024-01-18 04:00] VITALS: BP 153/80; PULSE 118; RESP 17; TEMP 36.7; O2SAT 97
[2024-01-18 06:04] LABS: Basophils # 0.1 10^3/uL (0.0-0.1); Basophils % 0.9 %; Eosinophils # 0.3 10^3/uL (0.0-0.8); Eosinophils % 2.6 %; Hematocrit 30.1 % (36-47); Lymphocytes # 1.9 10^3/uL (0.8-4.8); Lymphocytes % 19.4 %; Mean Corpuscular HGB Conc 30.9 g/dL (30-55); Mean Corpuscular Hemoglobin 27.8 pg (27-33); Mean Corpuscular Volume 90.1 fl (85-98); Mean Platelet Volume 9.6 fL (7.4-10.4); Monocytes # 0.7 10^3/uL (0.2-0.9); Monocytes % 7.1 %; Neutrophils # 6.67 10^3/uL (1.8-7.7); Neutrophils % 69.7 %; Nucleated Red Blood Cells % 0 %; Platelet Count 497 10^3/cmm (157-399); Red Blood Count 3.34 10^6/uL (3.85-5.65); Red Cell Distribution Width 14.6 % (12.1-15.1); White Blood Count 9.58 10^3/uL (3.29-11.43)
[2024-01-18 06:20] LABS: Anion Gap 18.6 (5-19); Blood Urea Nitrogen 22 mg/dL (8-23); Calcium 8.5 mg/dL (8.5-10.5); Carbon Dioxide 20 mmol/L (22-29); Chloride 107 mmol/L (98-107); Glucose 242 mg/dL (65-115); Magnesium 1.3 mg/dL (1.7-2.3); Osmolality Calculated 301 mOsm/kg (285-295); Potassium 5.6 mmol/L (3.5-5.1); Sodium 140 mmol/L (136-145)
[2024-01-18 06:32] LABS: Glucose Point of Care 194 mg/dL (70-110)
--- NOTE | 2024-01-18 06:52 | P.PN_ITS ---
Subjective 2 Subjective: Patient seen at bedside this morning. Resting comfortably. Increased pain postoperatively today. However, well-controlled with pain medication. Vitals/I&O/Wt Last Vital Signs Temp 98.0 F 01/18/24 04:00 Pulse 118 H 01/18/24 04:00 Resp 17 01/18/24 04:00 BP 153/80 01/18/24 04:00 Pulse Ox 97 01/18/24 04:00 O2 Del Method Room Air 01/18/24 04:00 01/17/24 01/17/24 01/18/24 14:59 22:59 06:59 Intake Total 290 / 290 895.45 / 1185.45 120 / 1305.45 Output Total 300 / 310 Balance 280 / 280 595.45 / 875.45 120 / 995.45 Weight last 48 hrs Weight 165 lb 1.6 oz Weight 161 lb 8 oz Weight 161 lb 1.6 oz Physical Exam 2 Narrative: EXAM NARRATIVE: LOWER EXTREMITY EXAMINATION VASCULAR: -DP/PT pulses diminished but palpable DERMATOLOGICAL: -Surgical dressing to right lower extremity clean, dry, intact with no strikethrough noted MUSCULOSKELETAL: -Status post right foot partial fifth ra y resection IMAGING: - X-rays of the right foot: Indicative of areas of air, suggesting the presence of a gas-producing organism. Erosive changes to the lateral aspect of fifth metatarsal head consistent with osteomyelitis. LABORATORY: - Cultures: MRSA sensitive to Zyvox, GBS Data 01/18/24 05:37 01/18/24 05:37 Micro: Microbiology 01/14/24 13:30 Anaerobic Culture - Preliminary Foot - #1 A&P Assessment and plan (1) Diabetic ulcer of foot associated with diabetes mellitus due to underlying condition, with necrosis of bone: (2) Diabetic foot ulcer associated with type 2 diabetes mellitus: (3) Diabetic wet gangrene of the foot: Plan -Right foot wet gangrene -Labs and vitals reviewed -WBC 9.58 -ESR 20 -CRP 79 -VSS--tachycardic up to 118 bpm this morning -Cultures wound cultures obtained in clinic show group B strep and MRSA; OR cultures show MSSA -Abx: P.o. Zyvox -Diet: Okay for diet -Patient is day 1 status post delayed primary closure to the right foot. Dressing clean, dry, intact. No further surgical intervention during this admission -Pain Mgmt: Per primary team -Weight bearing: Weightbearing to right foot for transfers only -Dressings: Leave surgical dressing clean, dry, intact -Continue current Abx therapy -Trend labs -Discharge plan: Patient is okay to discharge to facility from podiatry standpoint. In discussion with the patient's daughter they are trying to move her to a facility closer [place] rather than have her return to [facility]. She will be discharged home with 14 days of p.o. Zyvox. Follow-up with Dr. Caal in outpatient clinic within 1 week of discharge -Podiatry will continue to round on patient daily and provide recommendations Attestations 2 Medical Necessity Statement*: Status post right foot delayed primary closure. Awaiting placement. Coding Level of Care Code Acute Code for [facility] Diagnoses Diabetic ulcer of foot associated with diabetes mellitus due to underlying condition, with necrosis of bone E08.621; L97.504 Diabetic foot ulcer associated with type 2 diabetes mellitus E11.621; L97.509 Diabetic wet gangrene of the foot E11.52
[2024-01-18 07:24] VITALS: BP 134/90; PULSE 114; TEMP 36.6; O2SAT 98
[2024-01-18] MEDS: amlodipine 5 mg Tablet PO (08:19)
[2024-01-18] MEDS: gabapentin 300 mg Capsule PO (08:19)
[2024-01-18] MEDS: ARIPiprazole 10 mg Tablet 5 MG PO (08:19)
[2024-01-18] MEDS: insulin lispro 100 unit/1 mL SUBCUT ×2 (08:19→12:05)
[2024-01-18] MEDS: levothyroxine 25 mcg Tablet PO (08:19)
[2024-01-18] MEDS: atenolol 50 mg Tablet 25 MG PO (08:20)
[2024-01-18 09:06] LABS: SARS Covid-2 Antigen negative (Negative)
[2024-01-18 11:12] LABS: Glucose Point of Care 239 mg/dL (70-110)
[2024-01-18 11:44] VITALS: BP 135/84; PULSE 110; RESP 17; TEMP 36.7; O2SAT 98
--- NOTE | 2024-01-18 11:59 | PM.DCS ---
Discharge Providers Date of Admission: 01/13/24 16:53 Date of Discharge: January 18, 2024 Attending Provider at Admission: Navjot Colvin DO Attending Provider at Discharge: Malu Elaine MD Primary Care Provider: Marcy Johnson MD Diagnoses at Discharge Discharge Diagnosis (1) Diabetic ulcer of foot associated with diabetes mellitus due to underlying condition, with necrosis of bone: Status: Resolved (2) Diabetic foot ulcer associated with type 2 diabetes mellitus: Status: Acute (3) Diabetic wet gangrene of the foot: Status: Resolved Reason for Visit Reason for Visit: Dr Caal sent for infected foot Brief History: As per Dr. Janet Nielsen Rik Clement is a 73 year old female with past medical history significant for diabetes mellitus, multiple sclerosis, hypertension and dementia who has been residing at [facility] intermediate since her at the end of the summer. She has a Charcot joint of the left foot that currently has her in a boot. She was following up with Dr. Ramirez in his office today when they found a wound infection of the right fifth metatarsal Dr. Ramirez plans to take the patient to the OR for fifth metatarsal ray resection and debridement. It was noted that the nursing facility started patient on Bactrim on 01/11/2024. Patient family did not know extent of infection and whether the patient's wound was improving or getting worse in the last couple of days. Hospital Course Hospital Course Patient presented with with gangrene of the foot. Podiatry was consulted. Patient underwent ray resection and debridement. He was placed on Zosyn and vancomycin for antibiotic coverage. Patient went back to the OR for delayed closure. To surgery dates for 01/14/2024 and 01/17/2024.Margins were clean. Patient to go home on oral linezolid for another 2 weeks and follow-up with podiatry as an outpatient within 1 week of discharge. Discussed with daughter regarding plan going forward on 01/16. Seen again on 01/17. Patient resting comfortably in recliner. Says she is ready to leave. She will be going to a different nursing facility than where she came from so that she can be closer to her daughter. Follow-up labs given to patient. Physical Exam Narrative: General: No acute distress, AO x3 HEENT: PERRLA, pupils bilaterally equal and reactive, pallors not present Chest: Normal vesicular breath sounds, no added sounds, equal good air entry bilaterally CVS: S1-S2 regular, no murmurs, no tachycardia, no gallops, no rubs Abdomen: Soft, nontender, no organomegaly, bowel sounds present Extremities: Right foot in surgical dressing, Left foot in boot immobilizer. Discharge Data Studies Completed and Pending Pending at discharge Category Date Time Status Anaerobic Culture Routine Lab 01/14/24 13:30 Results Blood Culture Stat Lab 01/13/24 19:35 Results Pathology: Surgical [PTH] Routine Pth 01/14/24 13:34 Received Laboratory Results WBC 9.58 10^3/uL (3.29-11.43) 01/18/24 05:37 RBC 3.34 10^6/uL (3.85-5.65) L 01/18/24 05:37 Hgb 9.30 g/dL (11.27-16.99) L 01/18/24 05:37 Hct 30.1 % (36-47) L 01/18/24 05:37 MCV 90.1 fl (85-98) 01/18/24 05:37 MCH 27.8 pg (27-33) 01/18/24 05:37 MCHC 30.9 g/dL (30-55) 01/18/24 05:37 RDW 14.6 % (12.1-15.1) 01/18/24 05:37 Plt Count 497 10^3/cmm (157-399) H 01/18/24 05:37 MPV 9.6 fL (7.4-10.4) 01/18/24 05:37 Neut % (Auto) 69.7 % 01/18/24 05:37 Lymph % (Auto) 19.4 % 01/18/24 05:37 [place] % (Auto) 7.1 % 01/18/24 05:37 Eos % (Auto) 2.6 % 01/18/24 05:37 Baso % (Auto) 0.9 % 01/18/24 05:37 Neut # (Auto) 6.67 10^3/uL (1.8-7.7) 01/18/24 05:37 Lymph # (Auto) 1.9 10^3/uL (0.8-4.8) 01/18/24 05:37 [place] # (Auto) 0.7 10^3/uL (0.2-0.9) 01/18/24 05:37 Eos # (Auto) 0.3 10^3/uL (0.0-0.8) 01/18/24 05:37 Baso # (Auto) 0.1 10^3/uL (0.0-0.1) 01/18/24 05:37 Nucleated RBC % (auto) 0 % 01/18/24 05:37 Nucleated RBCs # 0.0 /100WBC 01/18/24 05:37 ESR 20 mm/hr (0-15) H 01/13/24 16:25 Sodium 140 mmol/L (136-145) 01/18/24 05:37 Potassium 5.6 mmol/L (3.5-5.1) H 01/18/24 05:37 Chloride 107 mmol/L (98-107) 01/18/24 05:37 Carbon Dioxide 20 mmol/L (22-29) L 01/18/24 05:37 Anion Gap 18.6 (5-19) 01/18/24 05:37 BUN 22 mg/dL (8-23) 01/18/24 05:37 Creatinine 2.1 mg/dL (0.5-0.9) H 01/18/24 05:37 GFR Calculation Not Reportable 01/18/24 05:37 Glucose 242 mg/dL (65-115) H 01/18/24 05:37 POC Glucose 239 mg/dL (70-110) H 01/18/24 11:08 Calculated Osmolality 301 mOsm/kg (285-295) H 01/18/24 05:37 Calcium 8.5 mg/dL (8.5-10.5) 01/18/24 05:37 Magnesium 1.3 mg/dL (1.7-2.3) L 01/18/24 05:37 Total Bilirubin 0.2 mg/dL (0.15-1.2) 01/17/24 03:53 AST 11 U/L (0-32) 01/17/24 03:53 ALT < 5 U/L (0-33) 01/17/24 03:53 Alkaline Phosphatase 112 U/L (35-105) H 01/17/24 03:53 C-Reactive Protein 79.2 mg/L (0.0-4.9) H 01/13/24 16:25 Total Protein 6.8 g/dL (6.6-8.7) 01/17/24 03:53 Albumin 3.1 g/dL (3.5-5.2) L 01/17/24 03:53 Globulin 3.7 g/dL (1.3-4.6) 01/17/24 03:53 Vancomycin Trough 14.9 ug/mL (10-15) 01/14/24 19:06 SARS-CoV-2 Ag (Rapid) negative (Negative) 01/18/24 08:22 Vitals Last Vital Signs Temp 98.1 F 01/18/24 11:44 Pulse 110 H 01/18/24 11:44 Resp 17 01/18/24 11:44 BP 135/84 01/18/24 11:44 Pulse Ox 98 01/18/24 11:44 O2 Del Method Room Air 01/18/24 11:44 Discharge Plan Discharge Patient Disposition: Xfer SNF Condition: Stable Prescriptions: New linezolid 600 mg Tablet 600 mg PO Q12H 12 Days Qty: 24 0RF Continued tramadol 50 mg tablet 50 mg PO DAILY PRN (Reason: pain/elevated temp) (DME) Radha wiseman See Rx Instructions .Route .MEDSUPPLY Qty: 1 0RF Rx Instructions: As directed to HOME (DME) CHARY wiseman See Rx Instructions .Route .MEDSUPPLY Qty: 1 0RF Rx Instructions: As directed (DME) lawanda boot See Rx Instructions .Route .MEDSUPPLY Qty: 1 0RF Rx Instructions: As directed to the meño oliva amlodipine 5 mg tablet 5 mg PO DAILY Qty: 90 3RF venlafaxine 150 mg capsule,extended release 24hr 150 mg PO DAILY Qty: 90 3RF tizanidine 4 mg Tablet 4 mg PO Q6H PRN (Reason: Spasms) gabapentin 300 mg Capsule 300 mg PO DAILY atenolol 25 mg tablet 25 mg PO DAILY aripiprazole 5 mg tablet 5 mg PO DAILY acetaminophen 325 mg Tablet 650 mg PO Q6H PRN (Reason: pain/increased temp) levothyroxine 25 mcg tablet 25 mcg PO DAILY magnesium hydroxide [Milk of Magnesia] 400 mg/5 mL Suspension See Rx Instructions .ROUTE .COMPLEX PRN (Reason: Constipation) Rx Instructions: Take 30 mL by mouth every 72 hours as needed if no bm in 3 days. glimepiride 4 mg tablet 4 mg PO BID bisacodyl [Laxative (bisacodyl)] 5 mg tablet,delayed release (DR/EC) See Rx Instructions .ROUTE .COMPLEX PRN (Reason: Constipation) Rx Instructions: Take 2 tablets (10 mg) by mouth as needed for constipation if no results from Milk of Mag. insulin aspart U-100 [Novolog FlexPen U-100 Insulin] 100 unit/mL (3 mL) insulin pen See Rx Instructions .ROUTE .COMPLEX Rx Instructions: Give before meals and at bedtime per sliding scale: If bs is less than 60, call MD. Bs 150-200=3 units, bs 201-250=5 units, bs 251-300=7 units, bs 301-350=9 units, bs 351-400=10 units. bs greater than 400 call MD. insulin glargine [Lantus Solostar U-100 Insulin] 100 unit/mL (3 mL) insulin pen 10 unit SUBCUT BEDTIME hydrocodone-acetaminophen 5-325 mg tablet 1 tab PO Q6H PRN (Reason: pain) Qty: 12 0RF losartan 100 mg tablet 100 mg PO DAILY Qty: 30 0RF furosemide 40 mg Tablet 40 mg PO DAILY MediHoney (honey) 80 % Gel 1 applic TOPICAL DAILY Held potassium chloride 20 mEq Tablet Extended Release 20 meq PO DAILY Hold Instructions: see pcp Discontinued celecoxib 200 mg capsule 200 mg PO BID sulfamethoxazole-trimethoprim 800-160 mg tablet 1 tab PO DAILY Epsom Salt (laxative) 495 mg/5 gram Granules 1 applic TOPICAL DAILY Discharge Orders: Discharge Order (Routine); Ordered 01/18/24 Ordered By: Malu Elaine Referrals: Marcy Johnson MD [Primary Care Provider] - 4-7 days Dima Caal DPM [Physician] - 4-7 days (We have notified your physician's clinic of the need for a follow-up appointment to be scheduled. If you have not heard from them within the next 2 business days, please call them directly. ) Discharge Diet: Cardiac and Diabetic Discharge Activity: Use walker/crutches as instructed and As per PT/OT instructions Patient Instructions: Linezolid (By mouth), Acute Wound Care (DC), Post Anesthesia Care Discharge Attestations Time Spent in Discharge Care*: greater than 30 min Quality Metrics Clinical Quality Measures [ No reported AMI, CVA or VTE this stay] Coding Level of Care Code Acute Code for Chg Fwd Diagnoses Diabetic ulcer of foot associated with diabetes mellitus due to underlying condition, with necrosis of bone E08.621; L97.504 Diabetic foot ulcer associated with type 2 diabetes mellitus E11.621; L97.509 Diabetic wet gangrene of the foot E11.52
[2024-01-18] MEDS: linezolid 600 mg Tablet PO (12:05)
[2024-01-18 13:40] LABS: Blood Urea Nitrogen 22 mg/dL (8-23); Calcium 8.2 mg/dL (8.5-10.5); Carbon Dioxide 20 mmol/L (22-29); Chloride 101 mmol/L (98-107); Glucose 282 mg/dL (65-115); Osmolality Calculated 290 mOsm/kg (285-295); Sodium 133 mmol/L (136-145)
[2024-01-18] MEDS: HYDROcodone-acetaminophen 5-325 mg Tablet 1 TAB PO (13:58)
== END 2024-01-18 15:10 | disposition skilled nursing facility (03) | DRG 256 ==
LOC: ER 16:41 → MEDSURG 16:54
PROVIDERS: Podiatrist Foot & Ankle Surgery; Student in an Organized Health Care Education/Training Program; Admitting Provider Internal Medicine; Emergency Provider Emergency Medicine; PCP Family Medicine; Visit Provider Internal Medicine
PROC: 0Y6X0Z0 Detachment at Right 5th Toe, Complete, Open Approach (ICD-10-PCS; principal; 2024-01-14 12:40)
PROC: 0Y6X0Z0 Detachment at Right 5th Toe, Complete, Open Approach (ICD-10-PCS; 2024-01-14 12:40)
PROC: 0QBN0ZZ Excision of Right Metatarsal, Open Approach (ICD-10-PCS; CPT 28140; principal; 2024-01-17 10:25)
PROC: 0QBN0ZZ Excision of Right Metatarsal, Open Approach (ICD-10-PCS; CPT 13160; 2024-01-17 10:25)
DX: E11.52 Type 2 diabetes mellitus with diabetic peripheral angiopathy with gangrene (principal); N17.9 Acute kidney failure, unspecified; E11.621 Type 2 diabetes mellitus with foot ulcer; L97.514 Non-pressure chronic ulcer of other part of right foot with necrosis of bone; E11.40 Type 2 diabetes mellitus with diabetic neuropathy, unspecified; E11.649 Type 2 diabetes mellitus with hypoglycemia without coma; E11.22 Type 2 diabetes mellitus with diabetic chronic kidney disease; I12.9 Hypertensive chronic kidney disease with stage 1 through stage 4 chronic kidney disease, or unspecified chronic kidney disease; N18.30 Chronic kidney disease, stage 3 unspecified; E11.610 Type 2 diabetes mellitus with diabetic neuropathic arthropathy; G35 Multiple sclerosis; F03.90 Unspecified dementia, unspecified severity, without behavioral disturbance, psychotic disturbance, mood disturbance, and anxiety; F32.A Depression, unspecified; R00.0 Tachycardia, unspecified; Z86.73 Personal history of transient ischemic attack (TIA), and cerebral infarction without residual deficits; Z79.84 Long term (current) use of oral hypoglycemic drugs; Z79.4 Long term (current) use of insulin
CPT/HCPCS: 36415; 36416; 73630; 80048; 80053; 80202; 82962; 83735; 85025; 85651; 86140; 87040; 87070; 87075; 87077; 87186; 87205; 87426; 88305; 88311; 96365; 96372; 99214; 99285; J1815; J2543; J2704; J3010; J3370; J3490; J7030; J7050

== ENCOUNTER → 2024-01-24 15:26 | Outpatient (BNVA) | payer MEDICARE, OTHER, MEDICAID, SELFPAY | PROVIDERS: PCP Family Medicine; Visit Provider Podiatrist Foot & Ankle Surgery | DX: E11.52 Type 2 diabetes mellitus with diabetic peripheral angiopathy with gangrene (principal); E11.649 Type 2 diabetes mellitus with hypoglycemia without coma; E11.621 Type 2 diabetes mellitus with foot ulcer; N18.32 Chronic kidney disease, stage 3b; L97.514 Non-pressure chronic ulcer of other part of right foot with necrosis of bone; M14.671 Charcot's joint, right ankle and foot; Z79.4 Long term (current) use of insulin | CPT/HCPCS: 99024 ==

== ENCOUNTER → 2024-01-31 14:47 | Outpatient (BNVA) | payer MEDICARE, OTHER, MEDICAID, SELFPAY | PROVIDERS: PCP Family Medicine; Visit Provider Podiatrist Foot & Ankle Surgery | DX: Z98.890 Other specified postprocedural states (principal); E11.621 Type 2 diabetes mellitus with foot ulcer; L97.514 Non-pressure chronic ulcer of other part of right foot with necrosis of bone; E11.52 Type 2 diabetes mellitus with diabetic peripheral angiopathy with gangrene; E11.649 Type 2 diabetes mellitus with hypoglycemia without coma; L97.509 Non-pressure chronic ulcer of other part of unspecified foot with unspecified severity; N18.32 Chronic kidney disease, stage 3b; M14.671 Charcot's joint, right ankle and foot; Z79.4 Long term (current) use of insulin | CPT/HCPCS: 99024; A6219 ==

== ENCOUNTER 2024-02-03 06:36 | Emergency (ER) | payer MEDICARE, OTHER, SELFPAY ==
[2024-02-03 06:36] VITALS: BP 127/74; PULSE 106; RESP 18; TEMP 36.6; O2SAT 97; BMI 25.4
--- NOTE | 2024-02-03 06:43 | ED_ITS ---
HPI - General Adult 2 General: Chief complaint: Arrhythmia/Palpitations Stated complaint: Gen Medical Source: patient and EMS Mode of arrival: EMS Limitations: no limitations History of Present Illness: 73-year-old female who sent here from [facility] for concern of new onset A- fib. Per EMS [facility] stated that they thought she was in A-fib EMS states she is in sinus tach she is in sinus tachycardia with heart rate of 108. Patient has no medical complaints she denies any pain she denies any fevers denies any vomiting or diarrhea. Associated symptoms: Deny chest pain, dyspnea, headache(s), nausea, rash or vomiting Related Data Home Medications Medication Instructions Recorded Confirmed gabapentin 300 mg capsule 300 mg PO DAILY 09/11/20 01/31/24 tizanidine 4 mg tablet 4 mg PO Q6H PRN Spasms 09/11/20 01/31/24 aripiprazole 5 mg tablet 5 mg PO DAILY 07/29/22 01/31/24 atenolol 25 mg tablet 25 mg PO DAILY 07/29/22 01/31/24 tramadol 50 mg tablet 50 mg PO DAILY PRN pain/elevated 01/27/23 01/31/24 temp acetaminophen 325 mg tablet 650 mg PO Q6H PRN pain/increased 11/11/23 01/31/24 temp bisacodyl 5 mg tablet,delayed See Rx Instructions .Route 11/11/23 01/31/24 release (Laxative (bisacodyl)) .COMPLEX PRN Constipation glimepiride 4 mg tablet 4 mg PO BID 11/11/23 01/31/24 insulin aspart U-100 100 unit/mL See Rx Instructions .Route .COMPLEX 11/11/23 01/31/24 (3 mL) subcutaneous pen (Novolog FlexPen U-100 Insulin aspart) insulin glargine 100 unit/mL (3 10 unit SUBCUT BEDTIME 11/11/23 01/31/24 mL) subcutaneous pen (Lantus Solostar U-100 Insulin) levothyroxine 25 mcg tablet 25 mcg PO DAILY 11/11/23 01/31/24 magnesium hydroxide 400 mg/5 mL See Rx Instructions .Route 11/11/23 01/31/24 oral suspension (Milk of Magnesia) .COMPLEX PRN Constipation furosemide 40 mg tablet 40 mg PO DAILY 01/14/24 01/31/24 honey 80 % topical gel (MediHoney 1 applic topical DAILY 01/14/24 01/31/24 (honey)) potassium chloride 20 mEq 20 meq PO DAILY 01/14/24 01/31/24 tablet,extended release Previous Rx's Medication Instructions Recorded amlodipine 5 mg tablet 5 mg PO DAILY #90 tabs 04/09/21 venlafaxine 150 mg 150 mg PO DAILY #90 caps 01/28/22 capsule,extended release 24 hr hydrocodone 5 mg-acetaminophen 325 1 tab PO Q6H PRN pain #12 tabs 11/11/23 mg tablet losartan 100 mg tablet 100 mg PO DAILY #30 tabs 11/11/23 [place] boot #1 ea 11/18/23 CAM boot #1 ea 12/01/23 [place] boot #1 ea 12/01/23 doxycycline hyclate 100 mg capsule 100 mg PO BID #14 caps 01/31/24 Allergies Allergy/AdvReac Type Severity Reaction Status Date / Time No Known Allergies Allergy Verified 02/03/24 06:44 Review of Systems 2 Const: Denies: fever(s), chills, body aches or change in appetite ENMT: Denies: throat pain or dental pain Card: Denies: chest pain Resp: Denies: dyspnea GI: Denies: abdominal pain, nausea, vomiting or diarrhea : Denies: dysuria Musc: Denies: neck pain or back pain Skin/Breast: Denies: rash Neuro: Denies: headache(s) PFSH ED 2 PFSH: Medical History CKD (chronic kidney disease) stage 3, GFR 30-59 ml/min Raynauds disease Intertrochanteric fracture of left hip Chronic kidney disease CVA (cerebral vascular accident) Hypertension Depression RLS (restless legs syndrome) Hypothyroidism Dysphagia Neuropathy of both feet Multiple sclerosis Essential (primary) hypertension Diabetes mellitus type 2, uncontrolled Surgical History History of surgery on right wrist History of surgery on left wrist History of esophagogastroduodenoscopy (EGD) History of colonoscopy History of back surgery Family History Other Cancer Epilepsy Hypertension Social History Smoking and tobacco/nicotine status: unknown if used tobacco/nicotine Alcohol intake: current Alcohol intake frequency: few times a month Physical Exam 2 Const: COMMON NORMALS: no acute distress, patient oriented x3 and healthy appearing HENMT: COMMON NORMALS: normocephalic and atraumatic HEAD & SCALP: n ormocephalic and atraumatic Neck/C-Spine: COMMON NORMALS: full ROM and supple Chest: COMMONS NORMALS: normal inspection of the chest Resp: COMMON NORMALS: normal respiratory effort, No retractions, No use of accessory muscles and clear to auscultation bilaterally AUSCULTATION: clear to auscultation bilaterally Cardio: COMMON NORMALS: regular rhythm and No murmurs present (Cardio) R ATE: tachycardic RHYTHM: regular rhythm GI: COMMON NORMALS: Normal to inspection, nondistended, normoactive bowel sounds present, Soft to palpation, non-tender and no masses PALPATION: Yes Soft to palpation Extremity: COMMON NORMALS: normal to inspection and full ROM Neuro: COMMON NORMALS: patient oriented x3, moves all extremities and no focal motor deficits Psych: COMMON NORMALS: mental status grossly normal, Normal thought process present and cooperative THOUGHT PROCESS: Normal thought process present Skin: COMMON NORMALS: no rashes or lesions noted and no wounds GENERAL SKIN EXAM: no rashes or lesions noted Course 2 Vital Signs: Vital signs: Vital Signs Temperature 97.9 F 02/03/24 06:36 Pulse Rate 109 H 02/03/24 06:44 Respiratory Rate 18 02/03/24 06:44 Blood Pressure 127/74 02/03/24 06:44 Pulse Oximetry 100 02/03/24 06:44 Oxygen Delivery Me thod Room Air 02/03/24 06:44 [facility] - General Adult Medical Decision Making Patient presents here with tachycardia reviewing her history she has a long history of sinus tachycardia her blood pressure has been normal her heart rate improved now in the 90s blood work shows no acute abnormality she is stable for [facility] Medical Records I reviewed the patient's medical records. Lab Data I reviewed the patient's lab results. 02/03/24 07:10 02/03/24 07:10 Laboratory Results WBC 6.02 10^3/uL (3.29-11.43) 02/03/24 07:10 RBC 3.38 10^6/uL (3.85-5.65) L 02/03/24 07:10 Hgb 9.30 g/dL (11.27-16.99) L 02/03/24 07:10 Hct 30.4 % (36-47) L 02/03/24 07:10 MCV 89.9 fl (85-98) 02/03/24 07:10 MCH 27.5 pg (27-33) 02/03/24 07:10 MCHC 30.6 g/dL (30-55) 02/03/24 07:10 RDW 16.1 % (12.1-15.1) H 02/03/24 07:10 Plt Count 188 10^3/cmm (157-399) 02/03/24 07:10 MPV 10.5 fL (7.4-10.4) H 02/03/24 07:10 Neut % (Auto) 60.8 % 02/03/24 07:10 Lymph % (Auto) 27.1 % 02/03/24 07:10 [place] % (Auto) 8.1 % 02/03/24 07:10 Eos % (Auto) 3.0 % 02/03/24 07:10 Baso % (Auto) 0.8 % 02/03/24 07:10 Neut # (Auto) 3.66 10^3/uL (1.8-7.7) 02/03/24 07:10 Lymph # (Auto) 1.6 10^3/uL (0.8-4.8) 02/03/24 07:10 [place] # (Auto) 0.5 10^3/uL (0.2-0.9) 02/03/24 07:10 Eos # (Auto) 0.2 10^3/uL (0.0-0.8) 02/03/24 07:10 Baso # (Auto) 0.1 10^3/uL (0.0-0.1) 02/03/24 07:10 Nucleated RBC % (auto) 0 % 02/03/24 07:10 Nucleated RBCs # 0.0 /100WBC 02/03/24 07:10 Sodium 135 mmol/L (136-145) L 02/03/24 07:10 Potassium 5.4 mmol/L (3.5-5.1) H 02/03/24 07:10 Chloride 102 mmol/L (98-107) 02/03/24 07:10 Carbon Dioxide 22 mmol/L (22-29) 02/03/24 07:10 Anion Gap 16.4 (5-19) 02/03/24 07:10 BUN 46 mg/dL (8-23) H 02/03/24 07:10 Creatinine 2.2 mg/dL (0.5-0.9) H 02/03/24 07:10 GFR Calculation Not Reportable 02/03/24 07:10 Glucose 178 mg/dL (65-115) H 02/03/24 07:10 Calculated Osmolality 296 mOsm/kg (285-295) H 02/03/24 07:10 Calcium 9.7 mg/dL (8.5-10.5) 02/03/24 07:10 All radiology interpretation(s) finalized by discharge EKG Data EKG 1: I personally reviewed and interpreted this EKG as follows: EKG interpretation date: 02/03/24 EKG interpretation time: 06:43 Interpretation: sinus tach hr [address] elevation qrs 82 qtc 402 Discharge Plan Discharge Patient Disposition: Home Clinical Impression: Sinus tachycardia Condition: Stable Prescriptions: No Action tramadol 50 mg tablet 50 mg PO DAILY PRN (Reason: pain/elevated temp) (DME) Radha siddiqiot See Rx Instructions .Route .MEDSUPPLY Qty: 1 0RF Rx Instructions: As directed to HOME (DME) CHARY boot See Rx Instructions .Route .MEDSUPPLY Qty: 1 0RF Rx Instructions: As directed (DME) lawanda siddiqiot See Rx Instructions .Route .MEDSUPPLY Qty: 1 0RF Rx Instructions: As directed to the meño oliva doxycycline hyclate 100 mg capsule 100 mg PO BID Qty: 14 0RF amlodipine 5 mg tablet 5 mg PO DAILY Qty: 90 3RF venlafaxine 150 mg capsule,extended release 24hr 150 mg PO DAILY Qty: 90 3RF tizanidine 4 mg Tablet 4 mg PO Q6H PRN (Reason: Spasms) gabapentin 300 mg Capsule 300 mg PO DAILY atenolol 25 mg tablet 25 mg PO DAILY aripiprazole 5 mg tablet 5 mg PO DAILY acetaminophen 325 mg Tablet 650 mg PO Q6H PRN (Reason: pain/increased temp) levothyroxine 25 mcg tablet 25 mcg PO DAILY magnesium hydroxide [Milk of Magnesia] 400 mg/5 mL Suspension See Rx Instructions .ROUTE .COMPLEX PRN (Reason: Constipation) Rx Instructions: Take 30 mL by mouth every 72 hours as needed if no bm in 3 days. glimepiride 4 mg tablet 4 mg PO BID bisacodyl [Laxative (bisacodyl)] 5 mg tablet,delayed release (DR/EC) See Rx Instructions .ROUTE .COMPLEX PRN (Reason: Constipation) Rx Instructions: Take 2 tablets (10 mg) by mouth as needed for constipation if no results from Milk of Mag. insulin aspart U-100 [Novolog FlexPen U-100 Insulin] 100 unit/mL (3 mL) insulin pen See Rx Instructions .ROUTE .COMPLEX Rx Instructions: Give before meals and at bedtime per sliding scale: If bs is less than 60, call MD. Bs 150-200=3 units, bs 201-250=5 units, bs 251-300=7 units, bs 301- 350=9 units, bs 351-400=10 units. bs greater than 400 call MD. insulin glargine [Lantus Solostar U-100 Insulin] 100 unit/mL (3 mL) insulin pen 10 unit SUBCUT BEDTIME hydrocodone-acetaminophen 5-325 mg tablet 1 tab PO Q6H PRN (Reason: pain) Qty: 12 0RF losartan 100 mg tablet 100 mg PO DAILY Qty: 30 0RF furosemide 40 mg Tablet 40 mg PO DAILY MediHoney (honey) 80 % Gel 1 applic TOPICAL DAILY potassium chloride 20 mEq Tablet Extended Release 20 meq PO DAILY Hold Instructions: see pcp Discharge Orders: Discharge ED (Routine); Ordered 02/03/24 Ordered By: Crescencio Jacob Referrals: Marcy Johnson MD [Primary Care Provider] - 4-7 days Discharge Diet: Advance as tolerated Discharge Activity: Resume usual activity Patient Instructions: Tachycardia (ED) Coding Level of Care Code ED Miniature Train Driver for Kelly Sam
--- NOTE | 2024-02-03 06:43 | ECG_ITS ---
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 Measurements Intervals [place] Rate: 106 P: 78 UT: 183 QRS: -70 QRSD: 82 T: 82 QT: 340 QTc: 453 Interpretive Statements SINUS TACHYCARDIA LOW QRS VOLTAGE IN PRECORDIAL LEADS [QRS DEFLECTION < 1.0 mV IN CHEST LEADS] POSSIBLE ANTERIOR MYOCARDIAL INFARCTION , PROBABLY OLD [30 ms Q WAVE IN V3/V4, OR R < 0.2 mV IN V4] INFERIOR MYOCARDIAL INFARCTION , PROBABLY OLD [40+ ms Q WAVE AND/OR ST/T ABNORMALITY IN II/aVF] Compared to ECG 07/28/2022 18:54:14 Sinus rhythm no longer present Left anterior fascicular block no longer present Myocardial infarct finding still present Electronically Signed On 02-05-2024 10:31:09 ENCODING CLERK by Bryon Haywood M.D. [id number]
[2024-02-03 06:44] VITALS: BP 127/74; PULSE 109; RESP 18; O2SAT 100
[2024-02-03 07:16] LABS: Basophils # 0.1 10^3/uL (0.0-0.1); Basophils % 0.8 %; Eosinophils # 0.2 10^3/uL (0.0-0.8); Hematocrit 30.4 % (36-47); Lymphocytes # 1.6 10^3/uL (0.8-4.8); Lymphocytes % 27.1 %; Mean Corpuscular HGB Conc 30.6 g/dL (30-55); Mean Corpuscular Hemoglobin 27.5 pg (27-33); Mean Corpuscular Volume 89.9 fl (85-98); Mean Platelet Volume 10.5 fL (7.4-10.4); Monocytes # 0.5 10^3/uL (0.2-0.9); Monocytes % 8.1 %; Neutrophils # 3.66 10^3/uL (1.8-7.7); Neutrophils % 60.8 %; Nucleated Red Blood Cells % 0 %; Platelet Count 188 10^3/cmm (157-399); Red Blood Count 3.38 10^6/uL (3.85-5.65); Red Cell Distribution Width 16.1 % (12.1-15.1); White Blood Count 6.02 10^3/uL (3.29-11.43)
[2024-02-03 07:32] LABS: Anion Gap 16.4 (5-19); Blood Urea Nitrogen 46 mg/dL (8-23); Calcium 9.7 mg/dL (8.5-10.5); Carbon Dioxide 22 mmol/L (22-29); Chloride 102 mmol/L (98-107); Creatinine Clr Calc Pharmacy 24.7394; Glucose 178 mg/dL (65-115); Osmolality Calculated 296 mOsm/kg (285-295); Potassium 5.4 mmol/L (3.5-5.1); Sodium 135 mmol/L (136-145)
[2024-02-03 08:43] VITALS: BP 131/79; PULSE 101; O2SAT 95
== END 2024-02-03 08:44 | disposition home or self-care (01) ==
PROVIDERS: Emergency Provider Emergency Medicine; PCP Family Medicine
DX: R00.0 Tachycardia, unspecified (principal); Z79.4 Long term (current) use of insulin; E11.22 Type 2 diabetes mellitus with diabetic chronic kidney disease; I12.9 Hypertensive chronic kidney disease with stage 1 through stage 4 chronic kidney disease, or unspecified chronic kidney disease; N18.30 Chronic kidney disease, stage 3 unspecified; Z86.73 Personal history of transient ischemic attack (TIA), and cerebral infarction without residual deficits
CPT/HCPCS: 36415; 80048; 85025; 93005; 99284

== ENCOUNTER → 2024-02-08 15:32 | Outpatient (BNVA) | payer MEDICARE, OTHER, MEDICAID, SELFPAY | PROVIDERS: PCP Family Medicine; Visit Provider Podiatrist Foot & Ankle Surgery | DX: Z98.890 Other specified postprocedural states; E11.52 Type 2 diabetes mellitus with diabetic peripheral angiopathy with gangrene; E11.649 Type 2 diabetes mellitus with hypoglycemia without coma; E11.621 Type 2 diabetes mellitus with foot ulcer; N18.32 Chronic kidney disease, stage 3b; M14.679 Charcot's joint, unspecified ankle and foot; Z89.431 Acquired absence of right foot | CPT/HCPCS: 99024 ==

== ENCOUNTER → 2024-02-16 09:15 | Outpatient (BNVA) | payer MEDICARE, OTHER, MEDICAID, SELFPAY | PROVIDERS: PCP Family Medicine; Visit Provider Thoracic Surgery (Cardiothoracic Vascular Surgery) | DX: I96 Gangrene, not elsewhere classified (principal); T81.31XD Disruption of external operation (surgical) wound, not elsewhere classified, subsequent encounter; Y83.8 Other surgical procedures as the cause of abnormal reaction of the patient, or of later complication, without mention of misadventure at the time of the procedure; L89.610 Pressure ulcer of right heel, unstageable | CPT/HCPCS: 11042; 97597; 99213 ==

== ENCOUNTER → 2024-02-23 10:00 | Outpatient (BNVA) | payer MEDICARE, OTHER, MEDICAID, SELFPAY | PROVIDERS: PCP Family Medicine; Visit Provider Thoracic Surgery (Cardiothoracic Vascular Surgery) | DX: E11.621 Type 2 diabetes mellitus with foot ulcer (principal); E11.52 Type 2 diabetes mellitus with diabetic peripheral angiopathy with gangrene; L97.526 Non-pressure chronic ulcer of other part of left foot with bone involvement without evidence of necrosis; Z09 Encounter for follow-up examination after completed treatment for conditions other than malignant neoplasm | CPT/HCPCS: 11042 ==

== ENCOUNTER 2024-02-24 10:02 | Outpatient (CLI) | payer MEDICARE, OTHER, MEDICAID, SELFPAY ==
--- NOTE | 2024-02-24 10:00 | USCV_ITS ---
Gia Clement Age: 73 Gender: F : 1950 Exam Date: 02/24/2024 10:36 Ordering Phys: Jameson Soliz MD (Andy) ([email or web address]) Technologist: [employer] [place] 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 Near/near normal arterial Doppler waveforms and velocities Resting ODILIA 1.1 on the right side CONCLUSIONS 1. Normal resting ODILIA on the right side. 2. Normal/near normal arterial Doppler waveforms and velocities on the right side 3. No significant arterial obstruction, based on the above findings Dr Ayaz Savage MD [facility] (Electronically Signed) Final Date: 24 February 2024 22:14 S
== END 2024-02-24 10:03 | disposition home or self-care (01) ==
LOC: RAD 10:03
PROVIDERS: PCP Family Medicine; Visit Provider Thoracic Surgery (Cardiothoracic Vascular Surgery)
DX: I73.00 Raynaud's syndrome without gangrene (principal)
CPT/HCPCS: 93926

== ENCOUNTER → 2024-03-02 13:57 | Outpatient (BNVA) | payer MEDICARE, OTHER, MEDICAID, SELFPAY | PROVIDERS: PCP Family Medicine; Visit Provider Thoracic Surgery (Cardiothoracic Vascular Surgery) | DX: E11.621 Type 2 diabetes mellitus with foot ulcer (principal); E11.52 Type 2 diabetes mellitus with diabetic peripheral angiopathy with gangrene; L97.514 Non-pressure chronic ulcer of other part of right foot with necrosis of bone | CPT/HCPCS: 11044; 87070; 87077; 87176; 87186; 87205 ==

== ENCOUNTER 2024-03-10 08:38 | Outpatient (CLI) | payer MEDICARE, OTHER, MEDICAID, SELFPAY ==
--- NOTE | 2024-03-10 08:45 | NM_ITS ---
WS: [id number] THREE-PHASE BONE SCAN HISTORY: Clinically suspect osteomyelitis right fifth metatarsal COMPARISON: RIGHT foot 01/13/2024 Patient is is injected with 25.3 mCi Tc99m HDP intravenously. Immediate angiographic phase imaging is performed over the area of concern. Static blood pool imaging also performed. Two-hour whole-body sc intigrams performed in anterior and posterior projections. Additional large field of view imaging sub mitted as necessary. All 3 phases of bone scan are positive involving the proximal fifth metatarsal. Suspect extension int o the distal cuboid and proximal fourth metatarsal. Increased uptake along the tarsometatarsal articulation. Curvilinear area of increased uptake corresp onds to the fractures and deformity seen on the recent radiograph from 12/17/2023. Additional osteoart hritic changes at the LEFT first metatarsal phalangeal joint. Intermediate uptake LEFT ankle. Mild AC joint arthritis. Normal activity in the soft tissue and ribs. NM/NM bone 3 phase 35435 IMPRESSION: 1. Findings suspicious for osteomyelitis with cellulitis involving the proxima l RIGHT fifth metatarsal. Also highly suspicious for osteomyelitis extension in to the cuboid and the proximal fourth metatarsal. 2. Intermediate uptake in the LEFT foot corresponds to the metatarsophalangeal joint where there is osseous fragmentation and healing fractures. 3. Advanced arthritis LEFT first metatarsophalangeal joint.
== END 2024-03-10 08:39 | disposition home or self-care (01) ==
LOC: RAD 08:39
PROVIDERS: PCP Family Medicine; Visit Provider Thoracic Surgery (Cardiothoracic Vascular Surgery)
DX: L97.529 Non-pressure chronic ulcer of other part of left foot with unspecified severity (principal); S92.312A Displaced fracture of first metatarsal bone, left foot, initial encounter for closed fracture; E11.621 Type 2 diabetes mellitus with foot ulcer; M19.072 Primary osteoarthritis, left ankle and foot; X58.XXXA Exposure to other specified factors, initial encounter
CPT/HCPCS: 78315; A9561

== ENCOUNTER → 2024-03-16 13:46 | Outpatient (BNVA) | payer MEDICARE, OTHER, MEDICAID, SELFPAY | PROVIDERS: PCP Family Medicine; Visit Provider Thoracic Surgery (Cardiothoracic Vascular Surgery) | DX: E11.52 Type 2 diabetes mellitus with diabetic peripheral angiopathy with gangrene (principal); E11.621 Type 2 diabetes mellitus with foot ulcer; L97.512 Non-pressure chronic ulcer of other part of right foot with fat layer exposed | CPT/HCPCS: 11042 ==

== ENCOUNTER → 2024-03-22 08:52 | Day surgery (SDC) | payer MEDICARE, OTHER, MEDICAID, SELFPAY ==
--- NOTE | 2024-03-22 08:56 | XR_ITS ---
WS: [id number] Portable AP supine chest, 03/22/2024 Clinical Data: Post PICC insertion Comparison: Portable chest, 07/28/2022 Findings: The right PICC line ends in the superior vena cava. No pneumothorax is seen. XR/XR chest 1V portable [id number] Impression: Satisfactory placement of right PICC line.
[2024-03-22 09:00] VITALS: BP 124/77; PULSE 77; RESP 18; TEMP 36.3; O2SAT 100
--- NOTE | 2024-03-22 09:40 | PICC.NOTE ---
Single lumen PICC placed to right basilic vein. Referred to vascular access nurse for PICC placement due to osteo and need for IV antibiotics x 6 weeks. Risks and benefits discussed and informed consent obtained from pt. Right arm assessed with right basilic vein measuring 4.0 mm, straight, and apparent best choice for placement. Using sterile technique and MST, right basilic vein accessed x 1 stick. Mid-arm circumference measured 10 cm from right AC 29 cm. Trimmed cath 41 cm with 0 cm external length noted. CXR shows tip in SVC, in good position for use per radiologist. Line secured with stat-lock. Insertion site covered with Biopatch and TSM. Report sent with [facility] staff[facility]ma.
[2024-03-22 09:58] LABS: Basophils % 0.6 %; Eosinophils # 0.2 10^3/uL (0.0-0.8); Eosinophils % 3.1 %; Hematocrit 29.4 % (36-47); Lymphocytes # 2.1 10^3/uL (0.8-4.8); Lymphocytes % 39.5 %; Mean Corpuscular HGB Conc 31.3 g/dL (30-55); Mean Corpuscular Hemoglobin 26.9 pg (27-33); Mean Platelet Volume 10.8 fL (7.4-10.4); Monocytes # 0.5 10^3/uL (0.2-0.9); Monocytes % 9.2 %; Neutrophils # 2.48 10^3/uL (1.8-7.7); Neutrophils % 47.6 %; Nucleated Red Blood Cells % 0 %; Platelet Count 342 10^3/cmm (157-399); Red Blood Count 3.42 10^6/uL (3.85-5.65); Red Cell Distribution Width 15.4 % (12.1-15.1); White Blood Count 5.21 10^3/uL (3.29-11.43)
[2024-03-22] MEDS: DAPTOmycin 500 MG SDV 300 MG IVP (10:06)
[2024-03-22 10:24] LABS: Blood Urea Nitrogen 28 mg/dL (8-23); C Reactive Protein 3.4 mg/L (0.0-4.9); Calcium 8.7 mg/dL (8.5-10.5); Carbon Dioxide 21 mmol/L (22-29); Chloride 98 mmol/L (98-107); Creatinine Clr Calc Pharmacy 34.0167; Glucose 257 mg/dL (65-115); Osmolality Calculated 290 mOsm/kg (285-295); Sodium 133 mmol/L (136-145)
[2024-03-22 10:25] LABS: Anion Gap 19.1 (5-19); Potassium 5.1 mmol/L (3.5-5.1)
== END ==
LOC: OPS 08:55
PROVIDERS: PCP Family Medicine; Visit Provider Thoracic Surgery (Cardiothoracic Vascular Surgery)
DX: Z45.2 Encounter for adjustment and management of vascular access device (principal)
CPT/HCPCS: 36573; 36592; 71045; 80048; 85025; 86140; 96374; J0878

== ENCOUNTER → 2024-03-28 08:02 | Outpatient (BNVA) | payer MEDICARE, OTHER, MEDICAID, SELFPAY | PROVIDERS: PCP Family Medicine; Visit Provider Thoracic Surgery (Cardiothoracic Vascular Surgery) | DX: E11.52 Type 2 diabetes mellitus with diabetic peripheral angiopathy with gangrene (principal); E11.621 Type 2 diabetes mellitus with foot ulcer; L97.511 Non-pressure chronic ulcer of other part of right foot limited to breakdown of skin | CPT/HCPCS: 97597; A6210 ==

== ENCOUNTER → 2024-04-06 09:44 | Outpatient (BNVA) | payer MEDICARE, OTHER, MEDICAID, SELFPAY | PROVIDERS: PCP Family Medicine; Visit Provider Thoracic Surgery (Cardiothoracic Vascular Surgery) | DX: E11.52 Type 2 diabetes mellitus with diabetic peripheral angiopathy with gangrene (principal); E11.621 Type 2 diabetes mellitus with foot ulcer; L97.511 Non-pressure chronic ulcer of other part of right foot limited to breakdown of skin | CPT/HCPCS: 97597 ==

== ENCOUNTER → 2024-04-10 14:25 | Outpatient (BNVA) | payer MEDICARE, OTHER, MEDICAID, SELFPAY | PROVIDERS: PCP Family Medicine; Visit Provider Podiatrist Foot & Ankle Surgery | DX: E11.22 Type 2 diabetes mellitus with diabetic chronic kidney disease; L60.3 Nail dystrophy; Z98.890 Other specified postprocedural states; E11.649 Type 2 diabetes mellitus with hypoglycemia without coma; E11.621 Type 2 diabetes mellitus with foot ulcer; N18.32 Chronic kidney disease, stage 3b; E11.610 Type 2 diabetes mellitus with diabetic neuropathic arthropathy; L97.514 Non-pressure chronic ulcer of other part of right foot with necrosis of bone; Z79.4 Long term (current) use of insulin | CPT/HCPCS: 11721 ==

== ENCOUNTER → 2024-04-12 13:56 | Outpatient (BNVA) | payer MEDICARE, OTHER, MEDICAID, SELFPAY | PROVIDERS: PCP Family Medicine; Visit Provider Thoracic Surgery (Cardiothoracic Vascular Surgery) | DX: E11.52 Type 2 diabetes mellitus with diabetic peripheral angiopathy with gangrene (principal); E11.621 Type 2 diabetes mellitus with foot ulcer; L97.511 Non-pressure chronic ulcer of other part of right foot limited to breakdown of skin | CPT/HCPCS: 97597; A6210 ==

== ENCOUNTER → 2024-04-28 08:49 | Outpatient (BNVA) | payer MEDICARE, OTHER, MEDICAID, SELFPAY | PROVIDERS: PCP Family Medicine; Visit Provider Thoracic Surgery (Cardiothoracic Vascular Surgery) | DX: Z09 Encounter for follow-up examination after completed treatment for conditions other than malignant neoplasm (principal); Z87.2 Personal history of diseases of the skin and subcutaneous tissue | CPT/HCPCS: 99212 ==

== ENCOUNTER → 2024-06-13 13:22 | Outpatient (BNVA) | payer MEDICARE, OTHER, MEDICAID, SELFPAY | PROVIDERS: PCP Electrodiagnostic Medicine; Visit Provider Podiatrist Foot & Ankle Surgery | DX: E11.649 Type 2 diabetes mellitus with hypoglycemia without coma (principal); L60.3 Nail dystrophy; N18.32 Chronic kidney disease, stage 3b; M14.679 Charcot's joint, unspecified ankle and foot; G62.9 Polyneuropathy, unspecified; R60.9 Edema, unspecified; Z79.4 Long term (current) use of insulin | CPT/HCPCS: 11721; 99213 ==

== ENCOUNTER → 2024-06-27 12:28 | Outpatient (BNVA) | payer MEDICARE, OTHER, SELFPAY | PROVIDERS: PCP Internal Medicine; Visit Provider Psychiatry & Neurology Neurology | DX: I63.9 Cerebral infarction, unspecified (principal) | CPT/HCPCS: 99212 ==

== ENCOUNTER → 2024-08-17 12:57 | Outpatient (BNVA) | payer MEDICARE, OTHER, MEDICAID, SELFPAY | PROVIDERS: PCP Internal Medicine; Visit Provider Podiatrist Foot & Ankle Surgery | DX: E11.42 Type 2 diabetes mellitus with diabetic polyneuropathy (principal); L60.3 Nail dystrophy; E11.649 Type 2 diabetes mellitus with hypoglycemia without coma; N18.32 Chronic kidney disease, stage 3b; G62.9 Polyneuropathy, unspecified; E11.610 Type 2 diabetes mellitus with diabetic neuropathic arthropathy; Z79.4 Long term (current) use of insulin | CPT/HCPCS: 11721 ==

== ENCOUNTER → 2024-11-02 13:39 | Outpatient (BNVA) | payer MEDICARE, OTHER, MEDICAID, SELFPAY | PROVIDERS: PCP Electrodiagnostic Medicine; Visit Provider Podiatrist Foot & Ankle Surgery | DX: E11.22 Type 2 diabetes mellitus with diabetic chronic kidney disease (principal); L60.3 Nail dystrophy; E11.649 Type 2 diabetes mellitus with hypoglycemia without coma; N18.32 Chronic kidney disease, stage 3b; G62.9 Polyneuropathy, unspecified; E11.610 Type 2 diabetes mellitus with diabetic neuropathic arthropathy; Z79.4 Long term (current) use of insulin | CPT/HCPCS: 11721 ==

== ENCOUNTER → 2025-01-11 13:31 | Outpatient (BNVA) | payer MEDICARE, OTHER, MEDICAID, SELFPAY | PROVIDERS: PCP Electrodiagnostic Medicine; Visit Provider Podiatrist Foot & Ankle Surgery | DX: E11.42 Type 2 diabetes mellitus with diabetic polyneuropathy (principal); L60.3 Nail dystrophy; E11.649 Type 2 diabetes mellitus with hypoglycemia without coma; N18.32 Chronic kidney disease, stage 3b; G62.9 Polyneuropathy, unspecified; E11.610 Type 2 diabetes mellitus with diabetic neuropathic arthropathy; Z79.4 Long term (current) use of insulin | CPT/HCPCS: 11721 ==

== ENCOUNTER → 2025-01-24 14:21 | Outpatient (BNVA) | payer MEDICARE, OTHER, MEDICAID, SELFPAY | PROVIDERS: PCP Electrodiagnostic Medicine; Visit Provider Podiatrist Foot & Ankle Surgery | DX: M79.671 Pain in right foot (principal); L60.3 Nail dystrophy; E11.649 Type 2 diabetes mellitus with hypoglycemia without coma; N18.32 Chronic kidney disease, stage 3b; E11.610 Type 2 diabetes mellitus with diabetic neuropathic arthropathy; G62.9 Polyneuropathy, unspecified; Z79.4 Long term (current) use of insulin; Z46.89 Encounter for fitting and adjustment of other specified devices; S86.011D Strain of right Achilles tendon, subsequent encounter; X58.XXXD Exposure to other specified factors, subsequent encounter | CPT/HCPCS: 73630 ==

== ENCOUNTER 2025-01-24 15:07 | Outpatient (CLI) | payer MEDICARE, OTHER, MEDICAID, SELFPAY | END 2025-01-24 15:08 | disposition home or self-care (01) | LOC: SPT 15:15 | PROVIDERS: PCP Electrodiagnostic Medicine; Visit Provider Podiatrist Foot & Ankle Surgery | DX: Z46.89 Encounter for fitting and adjustment of other specified devices (principal); S86.011D Strain of right Achilles tendon, subsequent encounter; X58.XXXD Exposure to other specified factors, subsequent encounter | CPT/HCPCS: L4361 ==

== ENCOUNTER → 2025-02-15 14:42 | Outpatient (BNVA) | payer MEDICARE, OTHER, MEDICAID, SELFPAY | PROVIDERS: PCP Electrodiagnostic Medicine; Visit Provider Podiatrist Foot & Ankle Surgery | DX: L60.3 Nail dystrophy (principal); E11.649 Type 2 diabetes mellitus with hypoglycemia without coma; N18.32 Chronic kidney disease, stage 3b; G62.9 Polyneuropathy, unspecified; M14.671 Charcot's joint, right ankle and foot; Z79.4 Long term (current) use of insulin | CPT/HCPCS: 99213 ==